=== PATIENT | male | born 1955 | race Caucasian/White ===

== ENCOUNTER 2018-02-13 23:13 | Inpatient (IN) | payer MEDICARE, OTHER ==
[~2018-02-13] VITALS: Ht 167.6 cm; Wt 69.1 kg
[2018-02-13 23:40] VITALS: BP 110/77
[2018-02-14] MEDS ORDERED: TOPIRAMATE100 MG ORAL (00:20)
[2018-02-14] MEDS ORDERED: TRILEPTAL600 MG PO (00:20)
[2018-02-14] MEDS ORDERED: FERROUS SULFAT325 MG ORAL (00:20)
[2018-02-14] MEDS ORDERED: GABAPENTIN300 MG ORAL (00:20)
[2018-02-14] MEDS ORDERED: ASCORBIC ACID500 M4 ORAL (00:20)
[2018-02-14] MEDS ORDERED: DEPAKOTE250 MG PO (00:20)
[2018-02-14] MEDS ORDERED: FAMOTIDINE20 MG ORAL (00:20)
[2018-02-14] MEDS ORDERED: MULTIVITAMINS1 EAC2 ORAL (00:20)
[2018-02-14 00:32] LABS: BASOPHILS % (AUTO) 0.9 % (0.0-2.0); EOSINOPHILS % (AUTO) 3.2 % (0.0-3.0); HEMATOCRIT 36.5 % (42.0-52.0); HEMOGLOBIN 12.3 G/DL (14.2-18.0); LYMPHOCYTES % (AUTO) 26.5 % (20.0-45.0); MEAN CORPUSCULAR VOLUME 90 FL (80-99); MONOCYTES % (AUTO) 7.9 % (1.0-10.0); NEUTROPHILS % (AUTO) 61.6 % (45.0-75.0); PLATELET COUNT 156 K/UL (150-450); RED BLOOD COUNT 4.04 M/UL (4.70-6.10); WHITE BLOOD COUNT 6.1 K/UL (4.8-10.8)
[2018-02-14 00:34] LABS: APPEARANCE,URINE CLEAR; BILIRUBIN, URINE NEGATIVE (NEGATIVE); COLOR,URINE PALE YELLOW; GLUCOSE, URINE (UA) NEGATIVE (NEGATIVE); KETONES,URINE NEGATIVE (NEGATIVE); LEUKOCYTE ESTERASE ,URINE NEGATIVE (NEGATIVE); NITRITE,URINE NEGATIVE (NEGATIVE); PH,URINE 8 (4.5-8.0); PROTEIN,URINE NEGATIVE (NEGATIVE); UROBILINOGEN,URINE NORMAL MG/DL (0.0-1.0)
[2018-02-14 00:38] LABS: ANION GAP 6 mmol/L (5-15); BLOOD UREA NITROGEN 18 mg/dL (7-18); CALCIUM 8.7 MG/DL (8.5-10.1); CARBON DIOXIDE 29 MMOL/L (21-32); CHLORIDE 106 MMOL/L (98-107); CREATININE 1.2 MG/DL (0.55-1.30); SODIUM 141 MMOL/L (136-145)
[2018-02-14 00:43] LABS: ALANINE AMINOTRANSFERASE 17 U/L (12-78); ALBUMIN 3.3 G/DL (3.4-5.0); ALBUMIN/GLOBULIN RATIO 0.9 (1.0-2.7); ALKALINE PHOSPHATASE 80 U/L (46-116); ASPARTATE AMINO TRANSFERASE 18 U/L (15-37); BILIRUBIN,TOTAL 0.2 MG/DL (0.2-1.0)
[2018-02-14 02:00] VITALS: BP 109/73
--- NOTE | 2018-02-14 02:16 | Emergency Room Report ---
History of Present Illness General Chief Complaint: General Complaint Source: Medical Record Present Illness HPI 62-year-old male presents ED for evaluation. Patient brought from shelter for agitated aggressive behavior today. History of schizophrenia, bipolar. Nursing staff states patient is behaving differently that his baseline. Upon arrival patient speaking nonsensically. Afebrile. No signs of distress. No chest pain or shortness of breath. No abdominal pain nausea or vomiting. Dr. Quintana contacted by facility, is aware that patient is being brought here for evaluation. No other aggravating relieving factors. Denies any other associated symptoms Allergies: Coded Allergies: No Known Allergies (Unverified , 02/13/18) Patient History Past Medical History: COPD, GERD, seizures, psych hx Past Surgical History: none Pertinent Family History: none Social History: Denies: smoking, alcohol use, drug use Immunizations: UTD Reviewed Nursing Documentation: PMH: Agreed; PSxH: Agreed Nursing Documentation-PMH Past Medical History: No History, Except For Hx COPD: Yes - acute respiratory distress syndrome, COPD Hx Gastrointestinal Problems: Yes - GERD Hx Seizures: Yes - epilepsy Review of Systems All Other Systems: negative except mentioned in HPI Physical Exam Vital Signs Date Time Temp Pulse Resp B/P (MAP) Pulse Ox O2 Delivery O2 Flow Rate FiO2 02/13/18 23:14 97.2 96 16 110/77 98 Room Air 97.2 Sp02 EP Interpretation: reviewed, normal General Appearance: no apparent distress, alert, GCS 15, non-toxic Head: normocephalic Eyes: bilateral eye normal inspection, bilateral eye PERRL ENT: normal ENT inspection Neck: normal inspection Respiratory: chest non-tender, lungs clear, normal breath sounds, speaking full sentences Cardiovascular #1: regular rate, rhythm, no edema Gastrointestinal: normal bowel sounds, non tender, soft, non-distended, no guarding, no rebound Rectal: deferred Genitourinary: no CVA tenderness Musculoskeletal: normal inspection Neurologic: alert, responsive, motor strength/tone normal, sensory intact, other - agitated Psychiatric: other - agitated Skin: normal inspection Lymphatic: normal inspection Medical Decision Making Diagnostic Impression: Primary Impression: Behavioral change Additional Impression: Altered mental status Qualified Codes: R41.0 - Disorientation, unspecified ER Course Hospital Course 62 yo M presents to ED with change in mentation/behavior from SNF Differential diagnoses include: dehydration, psychosis, delerium, sepsis Clinical course Patient placed on stretcher. on electronic publisher. After initial history and physical I ordered labs, chest x-ray, IVFs, CT Brain labs reviewed- no leukocytosis, hemoglobin/hematocrit ok, electrolytes okay, troponins negative, UA negative Chest x-ray- no acute process CT brain-unremarkable Dr Quintana aware of patient and will consult Case discussed with Dr. Treadwell and he agreed to accept the patient to his service for further care and support I. I feel this is a highly complex case requiring extensive working including EKG/Rhythm strip, Xray/CT/US, Blood/urine lab work, repeat exams while in ED, and administration of strong opiates/narcotics for pain control, admission to hospital or close patient follow up. Diagnosis - behavioral change, ams admitted to floor in serious condition Labs Test 02/13/18 23:59 02/14/18 00:20 White Blood Count 6.1 K/UL (4.8-10.8) Red Blood Count 4.04 M/UL (4.70-6.10) Hemoglobin 12.3 G/DL (14.2-18.0) Hematocrit 36.5 % (42.0-52.0) Mean Corpuscular Volume 90 FL (80-99) Mean Corpuscular Hemoglobin 30.4 PG (27.0-31.0) Mean Corpuscular Hemoglobin Concent 33.7 G/DL (32.0-36.0) Red Cell Distribution Width 13.0 % (11.6-14.8) Platelet Count 156 K/UL (150-450) Mean Platelet Volume 8.3 FL (6.5-10.1) Neutrophils (%) (Auto) 61.6 % (45.0-75.0) Lymphocytes (%) (Auto) 26.5 % (20.0-45.0) Monocytes (%) (Auto) 7.9 % (1.0-10.0) Eosinophils (%) (Auto) 3.2 % (0.0-3.0) Basophils (%) (Auto) 0.9 % (0.0-2.0) Sodium Level 141 MMOL/L (136-145) Potassium Level 4.0 MMOL/L (3.5-5.1) Chloride Level 106 MMOL/L (98-107) Carbon Dioxide Level 29 MMOL/L (21-32) Anion Gap 6 mmol/L (5-15) Blood Urea Nitrogen 18 mg/dL (7-18) Creatinine 1.2 MG/DL (0.55-1.30) Estimat Glomerular Filtration Rate > 60 mL/min (>60) Glucose Level 100 MG/DL (74-106) Lactic Acid Level 1.00 mmol/L (0.4-2.0) Calcium Level 8.7 MG/DL (8.5-10.1) Total Bilirubin 0.2 MG/DL (0.2-1.0) Aspartate Amino Transf (AST/SGOT) 18 U/L (15-37) Alanine Aminotransferase (ALT/SGPT) 17 U/L (12-78) Alkaline Phosphatase 80 U/L (46-116) Total Protein 7.1 G/DL (6.4-8.2) Albumin 3.3 G/DL (3.4-5.0) Globulin 3.8 g/dL Albumin/Globulin Ratio 0.9 (1.0-2.7) Urine Color Pale yellow Urine Appearance Clear Urine pH 8 (4.5-8.0) Urine Specific [place] 1.015 (1.005-1.035) Urine Protein Negative (NEGATIVE) Urine Glucose (UA) Negative (NEGATIVE) Urine Ketones Negative (NEGATIVE) Urine Occult Blood Negative (NEGATIVE) Urine Nitrite Negative (NEGATIVE) Urine Bilirubin Negative (NEGATIVE) Urine Urobilinogen Normal MG/DL (0.0-1.0) Urine Leukocyte Esterase Negative (NEGATIVE) Chest X-Ray Diagnostic Results Chest X-Ray Diagnostic Results : Chest X-Ray Ordered: Yes # of Views/Limited/Complete: 1 View Indication: Other - ams EP Interpretation: Yes Interpretation: no consolidation, no effusion, no pneumothorax, no acute cardiopulmonary disease, other - hyperinflated lungs Impression: No acute disease Electronically Signed by: Electronically signed by Noel Mojica MD CT/MRI/US Diagnostic Results CT/MRI/US Diagnostic Results : Imaging Test Ordered: CT Head Impression no acute process Last Vital Signs Date Time Temp Pulse Resp B/P (MAP) Pulse Ox O2 Delivery O2 Flow Rate FiO2 02/14/18 02:00 97.2 83 16 109/73 95 Room Air 97.2 Status: improved Disposition: ADMITTED INPATIENT Condition: Serious Referrals: Jose Treadwell DO (PCP) Noel Mojica MD Feb 14, 2018 02:16
[2018-02-14 04:00] VITALS: BP 146/79
[2018-02-14 08:00] VITALS: BP 155/80
[2018-02-14] MEDS: Ascorbic Acid 500mg tab ORAL SCH (08:12)
[2018-02-14] MEDS: OXcarbazepine 150mg tab ORAL SCH ×2 (08:12→21:17)
[2018-02-14] MEDS: Topiramate 100mg tab ORAL SCH ×2 (08:12→17:27)
[2018-02-14] MEDS ORDERED: Miralax 17gm pkt ORAL PRN (08:30)
[2018-02-14] MEDS ORDERED: Mylanta II UD 30ml ORAL PRN (08:30)
[2018-02-14] MEDS ORDERED: Zolpidem 5mg tab ORAL PRN (08:30)
[2018-02-14] MEDS ORDERED: LORazepam Inj 2mg/ml 1ml IV PRN (08:30)
--- NOTE | 2018-02-14 09:42 | Diagnostic Imaging Report ---
Indication: Altered mental status Technique: Contiguous 5 mm thick transaxial imaging of the head obtained in a Siemens Sensation [address] scanner. Soft tissue and bone windows generated. Automatic Exposure Control was utilized. Total Dose length Product (DLP): 1439.[address] Dose Index Volume (CTDIvol): 70.38 mGy Comparison: none Findings: There is moderate prominence of the ventricles, basal cisterns, and cerebral sulci consistent with atrophy. Moderate, nonspecific, white matter hypoattenuation is noted throughout the brain consistent with chronic small vessel disease. There is no midline shift, edema, acute hemorrhage, mass effect, or abnormal extra-axial fluid collections. Bones and extra osseous soft tissues are unremarkable. Impression: No acute intracranial bleed, mass effect or edema. Moderate atrophy of the brain. Evidence of chronic small vessel disease involving white matter tracts. [facility] has communicated the preliminary results to the Emergency Department. Their findings are largely concordant with this report. The CT scanner at [facility] is accredited by the [employer] and the scans are performed using dose optimization techniques as appropriate to a performed exam including Automatic Exposure control.
[2018-02-14] MEDS ORDERED: Haloperidol 5mg/ml Inj IM SCH (10:00)
[2018-02-14] MEDS ORDERED: DiphenhydrAMINE 50mg/ml Inj IM SCH (10:00)
[2018-02-14] MEDS ORDERED: LORazepam Inj 2mg/ml 1ml IV SCH (10:00)
--- NOTE | 2018-02-14 10:57 | Diagnostic Imaging Report ---
Indication: Dyspnea Comparison: None A single view chest radiograph was obtained. Findings: There is a fracture deformity of some of the ribs in the left which appear old. There is mild platelike atelectasis at the right lung base. Aorta is ectatic. The bones are osteopenic. Heart size is borderline enlarged. IMPRESSION: Mild right basal atelectasis. Other findings as above
[2018-02-14 12:00] VITALS: BP 99/67
--- NOTE | 2018-02-14 12:37 | Consultation ---
History of Present Illness General Date patient seen: Feb 14, 2018 Chief Complaint: General Complaint Present Illness HPI 62-year-old male with history of schizophrenia, bipolar, COPD, seizures presented to ED for evaluation of agitated aggressive behavior. Upon arrival to ER patient was speaking nonsensically. Afebrile. No signs of distress. No chest pain or shortness of breath. No abdominal pain nausea or vomiting. No other aggravating relieving factors. Denies any other associated symptoms Allergies: Coded Allergies: No Known Allergies (Unverified , 02/13/18) Medication History Scheduled Ascorbic Acid* (Ascorbic Acid*), 500 MG ORAL DAILY, (Reported) Divalproex Sodium* (Depakote*), 250 MG PO QID, (Reported) Famotidine (Famotidine), 20 MG ORAL DAILY, (Reported) Ferrous Sulfate* (Ferrous Sulfate*), 325 MG ORAL DAILY, (Reported) Gabapentin* (Gabapentin*), 300 MG ORAL BID, (Reported) Multivitamins* (Multivitamins*), 1 TAB ORAL DAILY, (Reported) Oxcarbazepine* (Trileptal*), 300 MG PO DAILY, (Reported) Topiramate* (Topamax*), 100 MG ORAL TWICE A DAY, (Reported) Patient History Healthcare decision maker Resuscitation status Advanced Directive on File Past Medical/Surgical History Past Medical/Surgical History: (1) Altered mental status (2) Psychosis (3) COPD (chronic obstructive pulmonary disease) Review of Systems All Other Systems: negative except mentioned in HPI Physical Exam General Appearance: WD/WN, no apparent distress Lines, tubes and drains: peripheral HEENT: normocephalic, atraumatic Neck: non-tender, normal alignment Respiratory/Chest: chest wall non-tender, lungs clear Breasts: no masses Cardiovascular/Chest: normal peripheral pulses Abdomen: normal bowel sounds, non tender Genitourinary/Rectal: normal genital exam Extremities: normal range of motion Last 24 Hour Vital Signs Date Time Temp Pulse Resp B/P (MAP) Pulse Ox O2 Delivery O2 Flow Rate FiO2 02/14/18 08:00 97.1 53 20 155/80 99 Room Air 97.1 02/14/18 04:00 97.3 85 20 146/79 98 Room Air 97.3 02/14/18 02:00 97.2 83 16 109/73 95 Room Air 207.0 02/14/18 02:00 97.2 83 16 109/73 95 Room Air 97.2 02/13/18 23:40 97.2 96 16 110/77 98 Room Air 97.2 02/13/18 23:14 97.2 96 16 110/77 98 Room Air 97.2 Intake and Output 02/13/18 02/14/18 19:00 07:00 Intake Total 0 ml Balance 0 ml Intake Oral 0 ml # Voids 2 Laboratory Tests Test 02/13/18 23:59 02/14/18 00:20 White Blood Count 6.1 K/UL (4.8-10.8) Red Blood Count 4.04 M/UL (4.70-6.10) L Hemoglobin 12.3 G/DL (14.2-18.0) L Hematocrit 36.5 % (42.0-52.0) L Mean Corpuscular Volume 90 FL (80-99) Mean Corpuscular Hemoglobin 30.4 PG (27.0-31.0) Mean Corpuscular Hemoglobin Concent 33.7 G/DL (32.0-36.0) Red Cell Distribution Width 13.0 % (11.6-14.8) Platelet Count 156 K/UL (150-450) Mean Platelet Volume 8.3 FL (6.5-10.1) Neutrophils (%) (Auto) 61.6 % (45.0-75.0) Lymphocytes (%) (Auto) 26.5 % (20.0-45.0) Monocytes (%) (Auto) 7.9 % (1.0-10.0) Eosinophils (%) (Auto) 3.2 % (0.0-3.0) H Basophils (%) (Auto) 0.9 % (0.0-2.0) Sodium Level 141 MMOL/L (136-145) Potassium Level 4.0 MMOL/L (3.5-5.1) Chloride Level 106 MMOL/L (98-107) Carbon Dioxide Level 29 MMOL/L (21-32) Anion Gap 6 mmol/L (5-15) Blood Urea Nitrogen 18 mg/dL (7-18) Creatinine 1.2 MG/DL (0.55-1.30) Estimat Glomerular Filtration Rate > 60 mL/min (>60) Glucose Level 100 MG/DL (74-106) Lactic Acid Level 1.00 mmol/L (0.4-2.0) Calcium Level 8.7 MG/DL (8.5-10.1) Total Bilirubin 0.2 MG/DL (0.2-1.0) Aspartate Amino Transf (AST/SGOT) 18 U/L (15-37) Alanine Aminotransferase (ALT/SGPT) 17 U/L (12-78) Alkaline Phosphatase 80 U/L (46-116) Total Protein 7.1 G/DL (6.4-8.2) Albumin 3.3 G/DL (3.4-5.0) L Globulin 3.8 g/dL Albumin/Globulin Ratio 0.9 (1.0-2.7) L Urine Color Pale yellow Urine Appearance Clear Urine pH 8 (4.5-8.0) Urine Specific [place] 1.015 (1.005-1.035) Urine Protein Negative (NEGATIVE) Urine Glucose (UA) Negative (NEGATIVE) Urine Ketones Negative (NEGATIVE) Urine Occult Blood Negative (NEGATIVE) Urine Nitrite Negative (NEGATIVE) Urine Bilirubin Negative (NEGATIVE) Urine Urobilinogen Normal MG/DL (0.0-1.0) Urine Leukocyte Esterase Negative (NEGATIVE) Height (Feet): 5 Height (Inches): 6.00 Weight (Pounds): 108 Medications Current Medications Medications (Trade) Dose Ordered Sig/Carmen Route PRN Reason Start Time Stop Time Status Last Admin Dose Admin Acetaminophen (Tylenol) 650 mg Q4H PRN ORAL fever 02/14/18 08:30 03/16/18 08:29 Al Hydroxide/Mg Hydroxide (Mylanta II) 30 ml Q6H PRN ORAL dyspepsia 02/14/18 08:30 03/16/18 08:29 Ascorbic Acid (Vitamin C) 500 mg DAILY ORAL 02/14/18 09:00 03/16/18 08:59 02/14/18 08:12 Dextrose (Dextrose 50%) 25 ml STAT PRN IV Hypoglycemia 02/14/18 08:30 03/16/18 08:29 Dextrose (Dextrose 50%) 50 ml STAT PRN IV Hypoglycemia 02/14/18 08:45 03/16/18 08:44 Divalproex Sodium (Depakote) 250 mg QID ORAL 02/14/18 09:00 03/16/18 08:59 02/14/18 08:12 Famotidine (Pepcid) 20 mg DAILY ORAL 02/14/18 09:00 03/16/18 08:59 02/14/18 08:12 Ferrous Sulfate (Feosol) 325 mg DAILY ORAL 02/14/18 09:00 03/16/18 08:59 Gabapentin (Neurontin) 300 mg BID ORAL 02/14/18 09:00 03/16/18 08:59 02/14/18 08:12 Lorazepam (Ativan 2mg/ml 1ml) 0.5 mg Q4H PRN IV For Anxiety 02/14/18 08:30 02/21/18 08:29 Morphine Sulfate (Morphine Sulfate) 1 mg Q4H PRN IVP For Pain 02/14/18 08:30 02/21/18 08:29 Multivitamins (Multivitamins) 1 tab DAILY ORAL 02/14/18 09:00 03/16/18 08:59 02/14/18 08:12 Ondansetron HCl (Zofran) 4 mg Q6H PRN IVP Nausea & Vomiting 02/14/18 08:30 03/16/18 08:29 Oxcarbazepine (Trileptal) 300 mg EVERY 12 HOURS ORAL 02/14/18 09:00 03/16/18 08:59 02/14/18 08:12 Polyethylene Glycol (Miralax) 17 gm HSPRN PRN ORAL Constipation 02/14/18 08:30 03/16/18 08:29 Topiramate (Topamax) 100 mg BID ORAL 02/14/18 09:00 03/16/18 08:59 02/14/18 08:12 Zolpidem Tartrate (Ambien) 5 mg HSPRN PRN ORAL Insomnia 02/14/18 08:30 02/21/18 08:29 Assessment/Plan Problem List: (1) Altered mental status ICD Codes: R41.82 - Altered mental status, unspecified SNOMED: 068096529 Qualifiers: Qualified Codes: R41.0 - Disorientation, unspecified (2) Psychosis ICD Codes: F29 - Unspecified psychosis not due to a substance or known physiological condition SNOMED: 53715160 (3) COPD (chronic obstructive pulmonary disease) ICD Codes: J44.9 - Chronic obstructive pulmonary disease, unspecified SNOMED: 74131719 (4) Seizure disorder ICD Codes: G40.909 - Epilepsy, unspecified, not intractable, without status epilepticus SNOMED: 874434177 Assessment/Plan respiratory treatment psychiatric management titrate fio2 to sat of 92% continue seizure meds dvt prophylaxis. Joana Morton MD Feb 14, 2018 12:37
--- NOTE | 2018-02-14 14:07 | Diagnostic Imaging Report ---
APPROVED REPORT CPT Code: 13988 Present Symptoms Comments: R/O DVT BILATERAL: Imaging reveals a patent deep venous system bilaterally. There is no evidence of thrombus within the femoral, popliteal or tibial segments. The greater saphenous veins are also within normal limits. Doppler indicates normal spontaneous flow within these segments.
[2018-02-14] MEDS ORDERED: Haloperidol Decanoate 50mg Inj IM ONE (15:00)
--- NOTE | 2018-02-14 15:00 | History and Physical Report ---
DATE OF ADMISSION: 02/13/2018 APPROXIMATE TIME: 9 a.m. CONSULTANTS: 1. Meeta Quintana M.D. 2. Joana Morton M.D. CHIEF COMPLAINT: Altered mental status and aggressive behavior. BRIEF HISTORY: This is a 62-year-old male from [facility] presented with above-mentioned diagnosis, admitted to medical floor for further treatment. Currently, confused, agitated in bed, refusing to answer questions. REVIEW OF SYSTEMS: Unavailable. PAST MEDICAL HISTORY: Include confusion and agitation. PAST SURGICAL HISTORY: Unknown. MEDICATIONS: Include Neurontin, , gabapentin, ferrous sulfa, famotidine, multivitamin, ascorbic acid, Tylenol, morphine, Zofran, and Lorazepam ALLERGIES: Denies. SOCIAL HISTORY: Unable to obtain secondary to the patient's condition and refusal. PHYSICAL EXAMINATION: GENERAL: Agitated in bed, oriented x3, no acute distress. VITAL SIGNS: Temperature is 97, pulse 85, respirations 20, and blood pressure 146/79. CARDIOVASCULAR: No murmur. LUNGS: Distant and clear. ABDOMEN: Bowel sounds positive. Nontender and nondistended. EXTREMITIES: No cyanosis, clubbing, or edema. NEUROLOGIC: The patient moves all extremities, does not want to follow commands. LABORATORY DATA: Labs at this time show hemoglobin 12.3, otherwise CBC is normal and BMP is normal. Albumin is 3.3, hypoalbumin. Urinalysis is negative. ASSESSMENT: 1. Aggressive behavior. 2. Altered mental status. 3. Anemia. 4. Hypoalbuminemia. PLAN: 1. Continue previous medications. 2. . 3. Dietary followup. 4. OT, PT, and dietary evaluation. 5. CBC and BMP in the morning. Jose Treadwell D.O. DR: STEPHAN JOB#: [id number] CC:
--- NOTE | 2018-02-14 15:22 | Consultation ---
History of Present Illness General Date patient seen: Feb 14, 2018 Chief Complaint: General Complaint Present Illness HPI 62-year-old male from [facility] the pt has hx of schizophrenia, admitted to medical floor for AMS. the pt is disorganized and agitated the pt was delusional and not able to communicate in a rational manner Allergies: Coded Allergies: No Known Allergies (Unverified , 02/13/18) Medication History Scheduled Ascorbic Acid* (Ascorbic Acid*), 500 MG ORAL DAILY, (Reported) Divalproex Sodium* (Depakote*), 250 MG PO QID, (Reported) Famotidine (Famotidine), 20 MG ORAL DAILY, (Reported) Ferrous Sulfate* (Ferrous Sulfate*), 325 MG ORAL DAILY, (Reported) Gabapentin* (Gabapentin*), 300 MG ORAL BID, (Reported) Multivitamins* (Multivitamins*), 1 TAB ORAL DAILY, (Reported) Oxcarbazepine* (Trileptal*), 300 MG PO DAILY, (Reported) Topiramate* (Topamax*), 100 MG ORAL TWICE A DAY, (Reported) Patient History Limited by: medical condition History Provided By: Patient, Medical Record, PMD Healthcare decision maker Resuscitation status Advanced Directive on File Past Medical/Surgical History Past Medical/Surgical History: (1) Behavioral change (2) Altered mental status (3) COPD (chronic obstructive pulmonary disease) (4) Psychosis (5) Seizure disorder Review of Systems Psychiatric: Reports: prior hx, anxiety, depressed feelings, emotional problems , hallucinations Physical Exam General Appearance: no apparent distress, alert, confused Neurologic: depressed affect Last 24 Hour Vital Signs Date Time Temp Pulse Resp B/P (MAP) Pulse Ox O2 Delivery O2 Flow Rate FiO2 02/14/18 12:00 97.9 94 20 99/67 97 Room Air 97.9 02/14/18 08:00 97.1 53 20 155/80 99 Room Air 97.1 02/14/18 04:00 97.3 85 20 146/79 98 Room Air 97.3 02/14/18 02:00 97.2 83 16 109/73 95 Room Air 207.0 02/14/18 02:00 97.2 83 16 109/73 95 Room Air 97.2 02/13/18 23:40 97.2 96 16 110/77 98 Room Air 97.2 02/13/18 23:14 97.2 96 16 110/77 98 Room Air 97.2 Intake and Output 02/13/18 02/14/18 19:00 07:00 Intake Total 0 ml Balance 0 ml Intake Oral 0 ml # Voids 2 Laboratory Tests Test 02/13/18 23:59 02/14/18 00:20 White Blood Count 6.1 K/UL (4.8-10.8) Red Blood Count 4.04 M/UL (4.70-6.10) L Hemoglobin 12.3 G/DL (14.2-18.0) L Hematocrit 36.5 % (42.0-52.0) L Mean Corpuscular Volume 90 FL (80-99) Mean Corpuscular Hemoglobin 30.4 PG (27.0-31.0) Mean Corpuscular Hemoglobin Concent 33.7 G/DL (32.0-36.0) Red Cell Distribution Width 13.0 % (11.6-14.8) Platelet Count 156 K/UL (150-450) Mean Platelet Volume 8.3 FL (6.5-10.1) Neutrophils (%) (Auto) 61.6 % (45.0-75.0) Lymphocytes (%) (Auto) 26.5 % (20.0-45.0) Monocytes (%) (Auto) 7.9 % (1.0-10.0) Eosinophils (%) (Auto) 3.2 % (0.0-3.0) H Basophils (%) (Auto) 0.9 % (0.0-2.0) Sodium Level 141 MMOL/L (136-145) Potassium Level 4.0 MMOL/L (3.5-5.1) Chloride Level 106 MMOL/L (98-107) Carbon Dioxide Level 29 MMOL/L (21-32) Anion Gap 6 mmol/L (5-15) Blood Urea Nitrogen 18 mg/dL (7-18) Creatinine 1.2 MG/DL (0.55-1.30) Estimat Glomerular Filtration Rate > 60 mL/min (>60) Glucose Level 100 MG/DL (74-106) Lactic Acid Level 1.00 mmol/L (0.4-2.0) Calcium Level 8.7 MG/DL (8.5-10.1) Total Bilirubin 0.2 MG/DL (0.2-1.0) Aspartate Amino Transf (AST/SGOT) 18 U/L (15-37) Alanine Aminotransferase (ALT/SGPT) 17 U/L (12-78) Alkaline Phosphatase 80 U/L (46-116) Total Protein 7.1 G/DL (6.4-8.2) Albumin 3.3 G/DL (3.4-5.0) L Globulin 3.8 g/dL Albumin/Globulin Ratio 0.9 (1.0-2.7) L Urine Color Pale yellow Urine Appearance Clear Urine pH 8 (4.5-8.0) Urine Specific [place] 1.015 (1.005-1.035) Urine Protein Negative (NEGATIVE) Urine Glucose (UA) Negative (NEGATIVE) Urine Ketones Negative (NEGATIVE) Urine Occult Blood Negative (NEGATIVE) Urine Nitrite Negative (NEGATIVE) Urine Bilirubin Negative (NEGATIVE) Urine Urobilinogen Normal MG/DL (0.0-1.0) Urine Leukocyte Esterase Negative (NEGATIVE) Height (Feet): 5 Height (Inches): 6.00 Weight (Pounds): 108 Medications Current Medications Medications (Trade) Dose Ordered Sig/Carmen Route PRN Reason Start Time Stop Time Status Last Admin Dose Admin Acetaminophen (Tylenol) 650 mg Q4H PRN ORAL fever 02/14/18 08:30 03/16/18 08:29 Al Hydroxide/Mg Hydroxide (Mylanta II) 30 ml Q6H PRN ORAL dyspepsia 02/14/18 08:30 03/16/18 08:29 Ascorbic Acid (Vitamin C) 500 mg DAILY ORAL 02/14/18 09:00 03/16/18 08:59 02/14/18 08:12 Dextrose (Dextrose 50%) 25 ml STAT PRN IV Hypoglycemia 02/14/18 08:30 03/16/18 08:29 Dextrose (Dextrose 50%) 50 ml STAT PRN IV Hypoglycemia 02/14/18 08:45 03/16/18 08:44 Divalproex Sodium (Depakote) 1,000 mg BID ORAL 02/14/18 18:00 03/16/18 17:59 Famotidine (Pepcid) 20 mg DAILY ORAL 02/14/18 09:00 03/16/18 08:59 02/14/18 08:12 Ferrous Sulfate (Feosol) 325 mg DAILY ORAL 02/14/18 09:00 03/16/18 08:59 Gabapentin (Neurontin) 300 mg BID ORAL 02/14/18 09:00 03/16/18 08:59 02/14/18 08:12 Lorazepam (Ativan 2mg/ml 1ml) 2 mg Q4H PRN IM For Anxiety 02/14/18 15:00 02/21/18 14:59 Morphine Sulfate (Morphine Sulfate) 1 mg Q4H PRN IVP For Pain 02/14/18 08:30 02/21/18 08:29 Multivitamins (Multivitamins) 1 tab DAILY ORAL 02/14/18 09:00 03/16/18 08:59 02/14/18 08:12 Ondansetron HCl (Zofran) 4 mg Q6H PRN IVP Nausea & Vomiting 02/14/18 08:30 03/16/18 08:29 Oxcarbazepine (Trileptal) 300 mg EVERY 12 HOURS ORAL 02/14/18 09:00 03/16/18 08:59 02/14/18 08:12 Polyethylene Glycol (Miralax) 17 gm HSPRN PRN ORAL Constipation 02/14/18 08:30 03/16/18 08:29 Risperidone (RisperDAL) 3 mg BEDTIME ORAL 02/14/18 21:00 03/16/18 20:59 Topiramate (Topamax) 100 mg BID ORAL 02/14/18 09:00 03/16/18 08:59 02/14/18 08:12 Assessment/Plan Status: stable Assessment/Plan Schizophrenia Encephalopathy -Haldol Dec 100 -Risperdal 3mg bid -Depakote 1000mg bid -not meeting criteria for hold -dc when medically cleared Meeta Quintana MD Feb 14, 2018 15:22
[2018-02-14 16:00] VITALS: BP 110/69
[2018-02-14] MEDS: Depakote 500mg tab ORAL SCH (17:28)
[2018-02-14 19:28] VITALS: BP 91/62
[2018-02-15 00:14] VITALS: BP 114/62
[2018-02-15 03:55] VITALS: BP 100/60
[2018-02-15 07:35] LABS: BASOPHILS % (AUTO) 0.9 % (0.0-2.0); EOSINOPHILS % (AUTO) 6.5 % (0.0-3.0); HEMATOCRIT 34.6 % (42.0-52.0); HEMOGLOBIN 11.2 G/DL (14.2-18.0); LYMPHOCYTES % (AUTO) 42.7 % (20.0-45.0); MEAN CORPUSCULAR VOLUME 90 FL (80-99); MONOCYTES % (AUTO) 7.7 % (1.0-10.0); NEUTROPHILS % (AUTO) 42.2 % (45.0-75.0); PLATELET COUNT 171 K/UL (150-450); RED BLOOD COUNT 3.86 M/UL (4.70-6.10); RED CELL DISTRIBUTION WIDTH 13.2 % (11.6-14.8); WHITE BLOOD COUNT 4.8 K/UL (4.8-10.8)
[2018-02-15 08:00] VITALS: BP 142/81
[2018-02-15 08:03] LABS: ALANINE AMINOTRANSFERASE 14 U/L (12-78); ALBUMIN 2.7 G/DL (3.4-5.0); ALBUMIN/GLOBULIN RATIO 0.8 (1.0-2.7); ALKALINE PHOSPHATASE 65 U/L (46-116); ANION GAP 7 mmol/L (5-15); ASPARTATE AMINO TRANSFERASE 20 U/L (15-37); BILIRUBIN,TOTAL 0.1 MG/DL (0.2-1.0); BLOOD UREA NITROGEN 20 mg/dL (7-18); CALCIUM 7.9 MG/DL (8.5-10.1); CARBON DIOXIDE 21 MMOL/L (21-32); CHLORIDE 110 MMOL/L (98-107); CHOLESTEROL 95 MG/DL (< 200); CREATININE 0.9 MG/DL (0.55-1.30); HDL CHOLESTEROL 58 MG/DL (40-60); POTASSIUM 4.2 MMOL/L (3.5-5.1); SODIUM 137 MMOL/L (136-145); TRIGLYCERIDES 33 MG/DL (30-150)
[2018-02-15] MEDS: Ascorbic Acid 500mg tab ORAL SCH (08:47)
[2018-02-15] MEDS: Depakote 500mg tab ORAL SCH ×2 (08:47→17:51)
[2018-02-15] MEDS: OXcarbazepine 150mg tab ORAL SCH ×2 (08:47→20:47)
[2018-02-15] MEDS: Topiramate 100mg tab ORAL SCH ×2 (08:47→17:51)
--- NOTE | 2018-02-15 09:05 | General Progress Note ---
Assessment/Plan Problem List: (1) Altered mental status ICD Codes: R41.82 - Altered mental status, unspecified SNOMED: 831372589 Qualifiers: Qualified Codes: R41.0 - Disorientation, unspecified (2) Psychosis ICD Codes: F29 - Unspecified psychosis not due to a substance or known physiological condition SNOMED: 53952540 (3) Seizure disorder ICD Codes: G40.909 - Epilepsy, unspecified, not intractable, without status epilepticus SNOMED: 025017347 Status: progressing Assessment/Plan ams confused afebrile agitated reviewed chart and labs Subjective ROS Limited/Unobtainable: Yes Allergies: Coded Allergies: No Known Allergies (Unverified , 02/13/18) Objective Last 24 Hour Vital Signs Date Time Temp Pulse Resp B/P (MAP) Pulse Ox O2 Delivery O2 Flow Rate FiO2 02/15/18 08:00 97.9 90 20 142/81 97 Room Air 97.9 02/15/18 03:55 97.5 81 20 100/60 97 Room Air 97.5 02/15/18 00:14 97.7 76 20 114/62 94 Room Air 97.7 02/14/18 19:28 97.7 92 20 91/62 96 Room Air 97.7 02/14/18 16:00 98.6 66 23 110/69 97 Room Air 98.6 02/14/18 12:00 97.9 94 20 99/67 97 Room Air 97.9 Intake and Output 02/14/18 02/15/18 19:00 07:00 Intake Total 720 ml Output Total 550 ml Balance 170 ml Intake Oral 720 ml Output Urine Total 550 ml # Voids 2 3 # Bowel Movements 1 1 Laboratory Tests 02/15/18 05:50: White Blood Count 4.8, Red Blood Count 3.86L, Hemoglobin 11.2L, Hematocrit 34.6L , Mean Corpuscular Volume 90, Mean Corpuscular Hemoglobin 29.0, Mean Corpuscular Hemoglobin Concent 32.3, Red Cell Distribution Width 13.2, Platelet Count 171, Mean Platelet Volume 7.9, Neutrophils (%) (Auto) 42.2L, Lymphocytes ( %) (Auto) 42.7, Monocytes (%) (Auto) 7.7, Eosinophils (%) (Auto) 6.5H, Basophils (%) (Auto) 0.9, Sodium Level 137, Potassium Level 4.2, Chloride Level 110H, Carbon Dioxide Level 21, Anion Gap 7, Blood Urea Nitrogen 20H, Creatinine 0.9, Estimat Glomerular Filtration Rate > 60, Glucose Level 76, Calcium Level 7.9L, Total Bilirubin 0.1L, Aspartate Amino Transf (AST/SGOT) 20, Alanine Aminotransferase (ALT/SGPT) 14, Alkaline Phosphatase 65, Total Protein 6.2L, Albumin 2.7L, Globulin 3.5, Albumin/Globulin Ratio 0.8L, Triglycerides Level 33 , Cholesterol Level 95, LDL Cholesterol 37, HDL Cholesterol 58, Cholesterol/HDL Ratio 1.6L, Thyroid Stimulating Hormone (TSH) 2.122 Height (Feet): 5 Height (Inches): 6.00 Weight (Pounds): 152 General Appearance: confused Neck: supple Cardiovascular: normal rate Respiratory/Chest: lungs clear Amirah Zimmerman MD Feb 15, 2018 09:05
[2018-02-15] MEDS: LORazepam Inj 2mg/ml 1ml IM PRN (10:51)
--- NOTE | 2018-02-15 11:52 | Pulmonology Progress Note ---
Assessment/Plan Problems: (1) Altered mental status (2) Psychosis (3) COPD (chronic obstructive pulmonary disease) (4) Seizure disorder Assessment/Plan slightly better still loud and talking without interruption respiratory treatment seizure precaution Subjective ROS Limited/Unobtainable: No Constitutional: Reports: no symptoms HEENT: Repors: no symptoms Allergies: Coded Allergies: No Known Allergies (Unverified , 02/13/18) Objective Last 24 Hour Vital Signs Date Time Temp Pulse Resp B/P (MAP) Pulse Ox O2 Delivery O2 Flow Rate FiO2 02/15/18 08:00 97.9 90 20 142/81 97 Room Air 97.9 02/15/18 03:55 97.5 81 20 100/60 97 Room Air 97.5 02/15/18 00:14 97.7 76 20 114/62 94 Room Air 97.7 02/14/18 19:28 97.7 92 20 91/62 96 Room Air 97.7 02/14/18 16:00 98.6 66 23 110/69 97 Room Air 98.6 02/14/18 12:00 97.9 94 20 99/67 97 Room Air 97.9 Intake and Output 02/14/18 02/15/18 19:00 07:00 Intake Total 720 ml Output Total 550 ml Balance 170 ml Intake Oral 720 ml Output Urine Total 550 ml # Voids 2 3 # Bowel Movements 1 1 General Appearance: WD/WN HEENT: normocephalic, anicteric Respiratory/Chest: chest wall non-tender, lungs clear Cardiovascular: normal peripheral pulses, normal rate Abdomen: normal bowel sounds, soft, non tender Genitourinary: normal external genitalia Skin: no rash Microbiology Date/Time Source Procedure Growth Status 02/13/18 23:45 Blood Blood Culture - Preliminary NO GROWTH AFTER 24 HOURS Resulted 02/13/18 00:00 Blood Blood Culture - Preliminary NO GROWTH AFTER 24 HOURS Resulted 02/14/18 00:20 Rectum VRE Culture Pending Resulted 02/14/18 00:20 Rectum - Preliminary Resulted Laboratory Tests 02/15/18 05:50: White Blood Count 4.8, Red Blood Count 3.86L, Hemoglobin 11.2L, Hematocrit 34.6L , Mean Corpuscular Volume 90, Mean Corpuscular Hemoglobin 29.0, Mean Corpuscular Hemoglobin Concent 32.3, Red Cell Distribution Width 13.2, Platelet Count 171, Mean Platelet Volume 7.9, Neutrophils (%) (Auto) 42.2L, Lymphocytes ( %) (Auto) 42.7, Monocytes (%) (Auto) 7.7, Eosinophils (%) (Auto) 6.5H, Basophils (%) (Auto) 0.9, Sodium Level 137, Potassium Level 4.2, Chloride Level 110H, Carbon Dioxide Level 21, Anion Gap 7, Blood Urea Nitrogen 20H, Creatinine 0.9, Estimat Glomerular Filtration Rate > 60, Glucose Level 76, Calcium Level 7.9L, Total Bilirubin 0.1L, Aspartate Amino Transf (AST/SGOT) 20, Alanine Aminotransferase (ALT/SGPT) 14, Alkaline Phosphatase 65, Total Protein 6.2L, Albumin 2.7L, Globulin 3.5, Albumin/Globulin Ratio 0.8L, Triglycerides Level 33 , Cholesterol Level 95, LDL Cholesterol 37, HDL Cholesterol 58, Cholesterol/HDL Ratio 1.6L, Thyroid Stimulating Hormone (TSH) 2.122 Current Medications Medications (Trade) Dose Ordered Sig/Carmen Route PRN Reason Start Time Stop Time Status Last Admin Dose Admin Acetaminophen (Tylenol) 650 mg Q4H PRN ORAL fever 02/14/18 08:30 03/16/18 08:29 Al Hydroxide/Mg Hydroxide (Mylanta II) 30 ml Q6H PRN ORAL dyspepsia 02/14/18 08:30 03/16/18 08:29 Ascorbic Acid (Vitamin C) 500 mg DAILY ORAL 02/14/18 09:00 03/16/18 08:59 02/15/18 08:47 Dextrose (Dextrose 50%) 25 ml STAT PRN IV Hypoglycemia 02/14/18 08:30 03/16/18 08:29 Dextrose (Dextrose 50%) 50 ml STAT PRN IV Hypoglycemia 02/14/18 08:45 03/16/18 08:44 Divalproex Sodium (Depakote) 1,000 mg BID ORAL 02/14/18 18:00 03/16/18 17:59 02/15/18 08:47 Famotidine (Pepcid) 20 mg DAILY ORAL 02/14/18 09:00 03/16/18 08:59 02/15/18 08:47 Ferrous Sulfate (Feosol) 325 mg DAILY ORAL 02/14/18 09:00 03/16/18 08:59 02/15/18 08:47 Gabapentin (Neurontin) 300 mg BID ORAL 02/14/18 09:00 03/16/18 08:59 02/15/18 08:47 Lorazepam (Ativan 2mg/ml 1ml) 2 mg Q4H PRN IM For Anxiety 02/14/18 15:00 02/21/18 14:59 02/15/18 10:51 Morphine Sulfate (Morphine Sulfate) 1 mg Q4H PRN IVP For Pain 02/14/18 08:30 02/21/18 08:29 Multivitamins (Multivitamins) 1 tab DAILY ORAL 02/14/18 09:00 03/16/18 08:59 02/15/18 08:47 Ondansetron HCl (Zofran) 4 mg Q6H PRN IVP Nausea & Vomiting 02/14/18 08:30 03/16/18 08:29 Oxcarbazepine (Trileptal) 300 mg EVERY 12 HOURS ORAL 02/14/18 09:00 03/16/18 08:59 02/15/18 08:47 Polyethylene Glycol (Miralax) 17 gm HSPRN PRN ORAL Constipation 02/14/18 08:30 03/16/18 08:29 Risperidone (RisperDAL) 3 mg BEDTIME ORAL 02/14/18 21:00 03/16/18 20:59 02/14/18 21:17 Topiramate (Topamax) 100 mg BID ORAL 02/14/18 09:00 03/16/18 08:59 02/15/18 08:47 Joana Morton MD Feb 15, 2018 11:52
[2018-02-15 12:00] VITALS: BP 112/69
[2018-02-15 16:00] VITALS: BP 118/69
[2018-02-15 20:00] VITALS: BP 105/54
[2018-02-15] MEDS: Morphine Sulfate 2mg/ml Inj IVP PRN (22:01)
--- NOTE | 2018-02-15 23:53 | General Progress Note ---
Assessment/Plan Assessment/Plan Schizophrenia Encephalopathy -Haldol Dec 100 -Risperdal 3mg bid -Depakote 1000mg bid -not meeting criteria for hold -dc when medically cleared dc the pt back to [place] tomorrow Subjective Date patient seen: Feb 15, 2018 Neurologic/Psychiatric: Reports: anxiety, depressed, emotional problems Allergies: Coded Allergies: No Known Allergies (Unverified , 02/13/18) Objective Last 24 Hour Vital Signs Date Time Temp Pulse Resp B/P (MAP) Pulse Ox O2 Delivery O2 Flow Rate FiO2 02/15/18 20:00 97.0 100 20 105/54 96 Room Air 97.0 02/15/18 16:00 98.0 78 20 118/69 97 Room Air 98.0 02/15/18 12:00 98.0 85 20 112/69 97 Room Air 98.0 02/15/18 08:00 97.9 90 20 142/81 97 Room Air 97.9 02/15/18 03:55 97.5 81 20 100/60 97 Room Air 97.5 02/15/18 00:14 97.7 76 20 114/62 94 Room Air 97.7 Intake and Output 02/14/18 02/15/18 19:00 07:00 Intake Total 720 ml Output Total 550 ml Balance 170 ml Intake Oral 720 ml Output Urine Total 550 ml # Voids 2 3 # Bowel Movements 1 1 Laboratory Tests 02/15/18 05:50: White Blood Count 4.8, Red Blood Count 3.86L, Hemoglobin 11.2L, Hematocrit 34.6L , Mean Corpuscular Volume 90, Mean Corpuscular Hemoglobin 29.0, Mean Corpuscular Hemoglobin Concent 32.3, Red Cell Distribution Width 13.2, Platelet Count 171, Mean Platelet Volume 7.9, Neutrophils (%) (Auto) 42.2L, Lymphocytes ( %) (Auto) 42.7, Monocytes (%) (Auto) 7.7, Eosinophils (%) (Auto) 6.5H, Basophils (%) (Auto) 0.9, Sodium Level 137, Potassium Level 4.2, Chloride Level 110H, Carbon Dioxide Level 21, Anion Gap 7, Blood Urea Nitrogen 20H, Creatinine 0.9, Estimat Glomerular Filtration Rate > 60, Glucose Level 76, Calcium Level 7.9L, Total Bilirubin 0.1L, Aspartate Amino Transf (AST/SGOT) 20, Alanine Aminotransferase (ALT/SGPT) 14, Alkaline Phosphatase 65, Total Protein 6.2L, Albumin 2.7L, Globulin 3.5, Albumin/Globulin Ratio 0.8L, Triglycerides Level 33 , Cholesterol Level 95, LDL Cholesterol 37, HDL Cholesterol 58, Cholesterol/HDL Ratio 1.6L, Thyroid Stimulating Hormone (TSH) 2.122 Height (Feet): 5 Height (Inches): 6.00 Weight (Pounds): 152 General Appearance: no apparent distress, alert, confused Neurologic: depressed affect Meeta Quintana MD Feb 15, 2018 23:53
[2018-02-16] VITALS (7 sets, daily range): BP systolic 110–140; BP diastolic 50–78
[2018-02-16 06:32] LABS: BASOPHILS % (AUTO) 0.9 % (0.0-2.0); EOSINOPHILS % (AUTO) 3.5 % (0.0-3.0); HEMATOCRIT 33.9 % (42.0-52.0); HEMOGLOBIN 11.2 G/DL (14.2-18.0); LYMPHOCYTES % (AUTO) 36.7 % (20.0-45.0); MEAN CORPUSCULAR VOLUME 89 FL (80-99); MONOCYTES % (AUTO) 10.8 % (1.0-10.0); NEUTROPHILS % (AUTO) 48.1 % (45.0-75.0); PLATELET COUNT 168 K/UL (150-450); RED BLOOD COUNT 3.79 M/UL (4.70-6.10); RED CELL DISTRIBUTION WIDTH 13.1 % (11.6-14.8); WHITE BLOOD COUNT 5.3 K/UL (4.8-10.8)
[2018-02-16 06:58] LABS: ALANINE AMINOTRANSFERASE 16 U/L (12-78); ALBUMIN/GLOBULIN RATIO 0.9 (1.0-2.7); ALKALINE PHOSPHATASE 71 U/L (46-116); ANION GAP 5 mmol/L (5-15); ASPARTATE AMINO TRANSFERASE 15 U/L (15-37); BILIRUBIN,TOTAL 0.1 MG/DL (0.2-1.0); BLOOD UREA NITROGEN 21 mg/dL (7-18); CALCIUM 8.3 MG/DL (8.5-10.1); CARBON DIOXIDE 25 MMOL/L (21-32); CHLORIDE 109 MMOL/L (98-107); CREATININE 0.9 MG/DL (0.55-1.30); POTASSIUM 4.1 MMOL/L (3.5-5.1); SODIUM 139 MMOL/L (136-145)
[2018-02-16] MEDS: Topiramate 100mg tab ORAL SCH ×2 (09:27→17:16)
[2018-02-16] MEDS: Depakote 500mg tab ORAL SCH ×2 (09:27→17:16)
[2018-02-16] MEDS: Ascorbic Acid 500mg tab ORAL SCH (09:27)
[2018-02-16] MEDS: OXcarbazepine 150mg tab ORAL SCH ×2 (09:27→21:26)
--- NOTE | 2018-02-16 16:08 | General Progress Note ---
Assessment/Plan Status: stable Assessment/Plan Schizophrenia Encephalopathy -Haldol Dec 100 -Risperdal 3mg bid -Depakote 1000mg bid -not meeting criteria for hold -dc when medically cleared Subjective Date patient seen: Feb 16, 2018 Neurologic/Psychiatric: Reports: anxiety, depressed, emotional problems Allergies: Coded Allergies: No Known Allergies (Unverified , 02/13/18) Subjective the pt is doing well stabilized on current meds Objective Last 24 Hour Vital Signs Date Time Temp Pulse Resp B/P (MAP) Pulse Ox O2 Delivery O2 Flow Rate FiO2 02/16/18 12:00 97.7 83 20 131/72 99 Room Air 97.7 02/16/18 08:00 98.6 98 20 140/78 99 Room Air 98.6 02/16/18 04:00 98.5 97 20 110/65 99 Room Air 98.5 02/16/18 00:00 98.9 102 20 112/70 96 Room Air 98.9 02/15/18 20:00 97.0 100 20 105/54 96 Room Air 97.0 Intake and Output 02/15/18 02/16/18 19:00 07:00 Intake Total 300 ml 450 ml Balance 300 ml 450 ml Intake Oral 300 ml 450 ml # Voids 2 3 Laboratory Tests 02/16/18 05:20: White Blood Count 5.3, Red Blood Count 3.79L, Hemoglobin 11.2L, Hematocrit 33.9L , Mean Corpuscular Volume 89, Mean Corpuscular Hemoglobin 29.7, Mean Corpuscular Hemoglobin Concent 33.2, Red Cell Distribution Width 13.1, Platelet Count 168, Mean Platelet Volume 7.5, Neutrophils (%) (Auto) 48.1, Lymphocytes (% ) (Auto) 36.7, Monocytes (%) (Auto) 10.8H, Eosinophils (%) (Auto) 3.5H, Basophils (%) (Auto) 0.9, Sodium Level 139, Potassium Level 4.1, Chloride Level 109H, Carbon Dioxide Level 25, Anion Gap 5, Blood Urea Nitrogen 21H, Creatinine 0.9, Estimat Glomerular Filtration Rate > 60, Glucose Level 80, Calcium Level 8.3L, Phosphorus Level 4.0, Magnesium Level 2.1, Total Bilirubin 0.1L, Aspartate Amino Transf (AST/SGOT) 15, Alanine Aminotransferase (ALT/SGPT) 16, Alkaline Phosphatase 71, Total Protein 6.4, Albumin 3.0L, Globulin 3.4, Albumin/ Globulin Ratio 0.9L Height (Feet): 5 Height (Inches): 6.00 Weight (Pounds): 152 General Appearance: no apparent distress, alert Neurologic: oriented x 3, responsive, depressed affect Meeta Quintana MD Feb 16, 2018 16:08
--- NOTE | 2018-02-16 21:35 | General Progress Note ---
Assessment/Plan Problem List: (1) Altered mental status ICD Codes: R41.82 - Altered mental status, unspecified SNOMED: 537250112 Qualifiers: Qualified Codes: R41.0 - Disorientation, unspecified (2) Psychosis ICD Codes: F29 - Unspecified psychosis not due to a substance or known physiological condition SNOMED: 04458053 (3) Seizure disorder ICD Codes: G40.909 - Epilepsy, unspecified, not intractable, without status epilepticus SNOMED: 703638003 Status: progressing Assessment/Plan afebrile no acute events reviewed meds ams reviewed chart and labs Subjective ROS Limited/Unobtainable: Yes Allergies: Coded Allergies: No Known Allergies (Unverified , 02/13/18) Objective Last 24 Hour Vital Signs Date Time Temp Pulse Resp B/P (MAP) Pulse Ox O2 Delivery O2 Flow Rate FiO2 02/16/18 16:00 98.2 85 20 128/68 99 Room Air 98.2 02/16/18 14:00 98.2 85 20 128/68 99 Room Air 98.2 02/16/18 12:00 97.7 83 20 131/72 99 Room Air 97.7 02/16/18 08:00 98.6 98 20 140/78 99 Room Air 98.6 02/16/18 04:00 98.5 97 20 110/65 99 Room Air 98.5 02/16/18 00:00 98.9 102 20 112/70 96 Room Air 98.9 Intake and Output 02/15/18 02/16/18 19:00 07:00 Intake Total 300 ml 450 ml Balance 300 ml 450 ml Intake Oral 300 ml 450 ml # Voids 2 3 Laboratory Tests 02/16/18 05:20: White Blood Count 5.3, Red Blood Count 3.79L, Hemoglobin 11.2L, Hematocrit 33.9L , Mean Corpuscular Volume 89, Mean Corpuscular Hemoglobin 29.7, Mean Corpuscular Hemoglobin Concent 33.2, Red Cell Distribution Width 13.1, Platelet Count 168, Mean Platelet Volume 7.5, Neutrophils (%) (Auto) 48.1, Lymphocytes (% ) (Auto) 36.7, Monocytes (%) (Auto) 10.8H, Eosinophils (%) (Auto) 3.5H, Basophils (%) (Auto) 0.9, Sodium Level 139, Potassium Level 4.1, Chloride Level 109H, Carbon Dioxide Level 25, Anion Gap 5, Blood Urea Nitrogen 21H, Creatinine 0.9, Estimat Glomerular Filtration Rate > 60, Glucose Level 80, Calcium Level 8.3L, Phosphorus Level 4.0, Magnesium Level 2.1, Total Bilirubin 0.1L, Aspartate Amino Transf (AST/SGOT) 15, Alanine Aminotransferase (ALT/SGPT) 16, Alkaline Phosphatase 71, Total Protein 6.4, Albumin 3.0L, Globulin 3.4, Albumin/ Globulin Ratio 0.9L Height (Feet): 5 Height (Inches): 6.00 Weight (Pounds): 152 Neck: supple Cardiovascular: normal rate Respiratory/Chest: lungs clear Amirah Zimmerman MD Feb 16, 2018 21:35
[2018-02-16] MEDS: Morphine Sulfate 2mg/ml Inj IVP PRN (23:11)
[2018-02-17] VITALS: BP 134/74
[2018-02-17 04:00] VITALS: BP 130/80
[2018-02-17 08:00] VITALS: BP 139/89
[2018-02-17] MEDS: OXcarbazepine 150mg tab ORAL SCH ×2 (08:30→20:54)
[2018-02-17] MEDS: Ascorbic Acid 500mg tab ORAL SCH (08:31)
[2018-02-17] MEDS: Topiramate 100mg tab ORAL SCH ×2 (08:31→17:44)
[2018-02-17] MEDS: Depakote 500mg tab ORAL SCH ×2 (08:31→17:45)
[2018-02-17 12:00] VITALS: BP 117/79
[2018-02-17] MEDS: LORazepam Inj 2mg/ml 1ml IM PRN ×2 (13:07→18:03)
--- NOTE | 2018-02-17 13:29 | General Progress Note ---
Assessment/Plan Problem List: (1) Altered mental status ICD Codes: R41.82 - Altered mental status, unspecified SNOMED: 194091558 Qualifiers: Qualified Codes: R41.0 - Disorientation, unspecified (2) Psychosis ICD Codes: F29 - Unspecified psychosis not due to a substance or known physiological condition SNOMED: 44656879 (3) Seizure disorder ICD Codes: G40.909 - Epilepsy, unspecified, not intractable, without status epilepticus SNOMED: 115313787 Status: progressing Assessment/Plan afebrile agitated not ready for dc since has aggressive behaviour and not safe for dc spoke w dr juarez re his behaviour and she is in agreement Subjective Allergies: Coded Allergies: No Known Allergies (Unverified , 02/13/18) Subjective confused Objective Last 24 Hour Vital Signs Date Time Temp Pulse Resp B/P (MAP) Pulse Ox O2 Delivery O2 Flow Rate FiO2 02/17/18 12:00 98.0 90 20 117/79 (92) 97 98.0 02/17/18 08:00 97.5 93 20 139/89 (106) 98 97.5 02/17/18 04:00 97.6 85 20 130/80 100 Room Air 97.6 02/17/18 00:00 97.1 87 20 134/74 98 Room Air 97.1 02/16/18 20:00 98.4 89 20 140/50 92 Room Air 98.4 02/16/18 16:00 98.2 85 20 128/68 99 Room Air 98.2 02/16/18 14:00 98.2 85 20 128/68 99 Room Air 98.2 Intake and Output 02/16/18 02/17/18 19:00 07:00 Intake Total 720 ml Balance 720 ml Intake Oral 720 ml # Voids 3 3 Height (Feet): 5 Height (Inches): 6.00 Weight (Pounds): 152 General Appearance: confused Neck: supple Cardiovascular: normal rate Respiratory/Chest: lungs clear Amirah Zimmerman MD Feb 17, 2018 13:29
--- NOTE | 2018-02-17 13:41 | General Progress Note ---
Assessment/Plan Status: stable Assessment/Plan Schizophrenia Encephalopathy -Haldol Dec 100 -Risperdal 6MG qhs -Depakote 1000mg bid -not meeting criteria for hold -dc when medically cleared dc the pt back to [place] tomorrow Subjective Date patient seen: Feb 17, 2018 Neurologic/Psychiatric: Reports: anxiety, depressed, emotional problems Allergies: Coded Allergies: No Known Allergies (Unverified , 02/13/18) Subjective the pt is doing well stabilized on current meds Objective Last 24 Hour Vital Signs Date Time Temp Pulse Resp B/P (MAP) Pulse Ox O2 Delivery O2 Flow Rate FiO2 02/17/18 12:00 98.0 90 20 117/79 (92) 97 98.0 02/17/18 08:00 97.5 93 20 139/89 (106) 98 97.5 02/17/18 04:00 97.6 85 20 130/80 100 Room Air 97.6 02/17/18 00:00 97.1 87 20 134/74 98 Room Air 97.1 02/16/18 20:00 98.4 89 20 140/50 92 Room Air 98.4 02/16/18 16:00 98.2 85 20 128/68 99 Room Air 98.2 02/16/18 14:00 98.2 85 20 128/68 99 Room Air 98.2 Intake and Output 02/16/18 02/17/18 19:00 07:00 Intake Total 720 ml Balance 720 ml Intake Oral 720 ml # Voids 3 3 Height (Feet): 5 Height (Inches): 6.00 Weight (Pounds): 152 General Appearance: no apparent distress, alert, confused, agitated Meeta Quintana MD Feb 17, 2018 13:41
--- NOTE | 2018-02-17 15:46 | Pulmonology Progress Note ---
Assessment/Plan Problems: (1) Altered mental status (2) Psychosis (3) COPD (chronic obstructive pulmonary disease) (4) Seizure disorder Assessment/Plan no new complains all reviewed slightly better still loud and talking without interruption respiratory treatment seizure precaution Subjective ROS Limited/Unobtainable: No Constitutional: Reports: no symptoms HEENT: Repors: no symptoms Respiratory: Reports: no symptoms Cardiovascular: Reports: no symptoms Allergies: Coded Allergies: No Known Allergies (Unverified , 02/13/18) Objective Last 24 Hour Vital Signs Date Time Temp Pulse Resp B/P (MAP) Pulse Ox O2 Delivery O2 Flow Rate FiO2 02/17/18 12:00 98.0 90 20 117/79 (92) 97 98.0 02/17/18 09:00 Room Air 02/17/18 08:00 97.5 93 20 139/89 (106) 98 97.5 02/17/18 04:00 97.6 85 20 130/80 100 Room Air 97.6 02/17/18 00:00 97.1 87 20 134/74 98 Room Air 97.1 02/16/18 20:00 98.4 89 20 140/50 92 Room Air 98.4 02/16/18 16:00 98.2 85 20 128/68 99 Room Air 98.2 Intake and Output 02/16/18 02/17/18 19:00 07:00 Intake Total 720 ml Balance 720 ml Intake Oral 720 ml # Voids 3 3 General Appearance: WD/WN HEENT: normocephalic, atraumatic Respiratory/Chest: chest wall non-tender, lungs clear Cardiovascular: normal peripheral pulses, normal rate Abdomen: normal bowel sounds, soft, non tender Genitourinary: normal external genitalia Current Medications Medications (Trade) Dose Ordered Sig/Carmen Route PRN Reason Start Time Stop Time Status Last Admin Dose Admin Acetaminophen (Tylenol) 650 mg Q4H PRN ORAL fever 02/14/18 08:30 03/16/18 08:29 Al Hydroxide/Mg Hydroxide (Mylanta II) 30 ml Q6H PRN ORAL dyspepsia 02/14/18 08:30 03/16/18 08:29 Ascorbic Acid (Vitamin C) 500 mg DAILY ORAL 02/14/18 09:00 03/16/18 08:59 02/17/18 08:31 Dextrose (Dextrose 50%) 25 ml STAT PRN IV Hypoglycemia 02/14/18 08:30 03/16/18 08:29 Dextrose (Dextrose 50%) 50 ml STAT PRN IV Hypoglycemia 02/14/18 08:45 03/16/18 08:44 Divalproex Sodium (Depakote) 1,000 mg BID ORAL 02/14/18 18:00 03/16/18 17:59 02/17/18 08:31 Famotidine (Pepcid) 20 mg DAILY ORAL 02/14/18 09:00 03/16/18 08:59 02/17/18 08:31 Ferrous Sulfate (Feosol) 325 mg DAILY ORAL 02/14/18 09:00 03/16/18 08:59 02/17/18 08:31 Gabapentin (Neurontin) 300 mg BID ORAL 02/14/18 09:00 03/16/18 08:59 02/17/18 08:31 Lorazepam (Ativan 2mg/ml 1ml) 2 mg Q4H PRN IM For Anxiety 02/14/18 15:00 02/21/18 14:59 02/17/18 13:07 Morphine Sulfate (Morphine Sulfate) 1 mg Q4H PRN IVP For Pain 02/14/18 08:30 02/21/18 08:29 02/16/18 23:11 Multivitamins (Multivitamins) 1 tab DAILY ORAL 02/14/18 09:00 03/16/18 08:59 02/17/18 08:30 Ondansetron HCl (Zofran) 4 mg Q6H PRN IVP Nausea & Vomiting 02/14/18 08:30 03/16/18 08:29 Oxcarbazepine (Trileptal) 300 mg EVERY 12 HOURS ORAL 02/14/18 09:00 03/16/18 08:59 02/17/18 08:30 Polyethylene Glycol (Miralax) 17 gm HSPRN PRN ORAL Constipation 02/14/18 08:30 03/16/18 08:29 Risperidone (RisperDAL) 6 mg BEDTIME ORAL 02/17/18 21:00 03/19/18 20:59 Topiramate (Topamax) 100 mg BID ORAL 02/14/18 09:00 03/16/18 08:59 02/17/18 08:31 Joana Morton MD Feb 17, 2018 15:46
--- NOTE | 2018-02-17 15:47 | Pulmonology Progress Note ---
Assessment/Plan Problems: (1) Altered mental status (2) Psychosis (3) COPD (chronic obstructive pulmonary disease) (4) Seizure disorder Assessment/Plan d/w dr juarez no new complains all reviewed slightly better still loud and talking without interruption respiratory treatment seizure precaution Subjective ROS Limited/Unobtainable: No Interval Events: late note for 02/16 Allergies: Coded Allergies: No Known Allergies (Unverified , 02/13/18) Objective Last 24 Hour Vital Signs Date Time Temp Pulse Resp B/P (MAP) Pulse Ox O2 Delivery O2 Flow Rate FiO2 02/17/18 12:00 98.0 90 20 117/79 (92) 97 98.0 02/17/18 09:00 Room Air 02/17/18 08:00 97.5 93 20 139/89 (106) 98 97.5 02/17/18 04:00 97.6 85 20 130/80 100 Room Air 97.6 02/17/18 00:00 97.1 87 20 134/74 98 Room Air 97.1 02/16/18 20:00 98.4 89 20 140/50 92 Room Air 98.4 02/16/18 16:00 98.2 85 20 128/68 99 Room Air 98.2 Intake and Output 02/16/18 02/17/18 19:00 07:00 Intake Total 720 ml Balance 720 ml Intake Oral 720 ml # Voids 3 3 General Appearance: WD/WN HEENT: normocephalic, atraumatic Respiratory/Chest: chest wall non-tender, lungs clear Cardiovascular: normal peripheral pulses, normal rate Abdomen: normal bowel sounds, soft, non tender Genitourinary: normal external genitalia Extremities: no cyanosis 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 Current Medications Medications (Trade) Dose Ordered Sig/Carmen Route PRN Reason Start Time Stop Time Status Last Admin Dose Admin Acetaminophen (Tylenol) 650 mg Q4H PRN ORAL fever 02/14/18 08:30 03/16/18 08:29 Al Hydroxide/Mg Hydroxide (Mylanta II) 30 ml Q6H PRN ORAL dyspepsia 02/14/18 08:30 03/16/18 08:29 Ascorbic Acid (Vitamin C) 500 mg DAILY ORAL 02/14/18 09:00 03/16/18 08:59 02/17/18 08:31 Dextrose (Dextrose 50%) 25 ml STAT PRN IV Hypoglycemia 02/14/18 08:30 03/16/18 08:29 Dextrose (Dextrose 50%) 50 ml STAT PRN IV Hypoglycemia 02/14/18 08:45 03/16/18 08:44 Divalproex Sodium (Depakote) 1,000 mg BID ORAL 02/14/18 18:00 03/16/18 17:59 02/17/18 08:31 Famotidine (Pepcid) 20 mg DAILY ORAL 02/14/18 09:00 03/16/18 08:59 02/17/18 08:31 Ferrous Sulfate (Feosol) 325 mg DAILY ORAL 02/14/18 09:00 03/16/18 08:59 02/17/18 08:31 Gabapentin (Neurontin) 300 mg BID ORAL 02/14/18 09:00 03/16/18 08:59 02/17/18 08:31 Lorazepam (Ativan 2mg/ml 1ml) 2 mg Q4H PRN IM For Anxiety 02/14/18 15:00 02/21/18 14:59 02/17/18 13:07 Morphine Sulfate (Morphine Sulfate) 1 mg Q4H PRN IVP For Pain 02/14/18 08:30 02/21/18 08:29 02/16/18 23:11 Multivitamins (Multivitamins) 1 tab DAILY ORAL 02/14/18 09:00 03/16/18 08:59 02/17/18 08:30 Ondansetron HCl (Zofran) 4 mg Q6H PRN IVP Nausea & Vomiting 02/14/18 08:30 03/16/18 08:29 Oxcarbazepine (Trileptal) 300 mg EVERY 12 HOURS ORAL 02/14/18 09:00 03/16/18 08:59 02/17/18 08:30 Polyethylene Glycol (Miralax) 17 gm HSPRN PRN ORAL Constipation 02/14/18 08:30 03/16/18 08:29 Risperidone (RisperDAL) 6 mg BEDTIME ORAL 02/17/18 21:00 03/19/18 20:59 Topiramate (Topamax) 100 mg BID ORAL 02/14/18 09:00 03/16/18 08:59 02/17/18 08:31 Joana Morton MD Feb 17, 2018 15:47
[2018-02-17 16:00] VITALS: BP 131/80
[2018-02-17 20:00] VITALS: BP 114/76
[2018-02-18] VITALS (7 sets, daily range): BP systolic 91–123; BP diastolic 62–82
[2018-02-18] MEDS: Depakote 500mg tab ORAL SCH ×2 (09:15→18:07)
[2018-02-18] MEDS: Ascorbic Acid 500mg tab ORAL SCH (09:15)
[2018-02-18] MEDS: OXcarbazepine 150mg tab ORAL SCH ×2 (09:15→20:37)
[2018-02-18] MEDS: Topiramate 100mg tab ORAL SCH ×2 (09:15→18:07)
--- NOTE | 2018-02-18 16:00 | General Progress Note ---
Assessment/Plan Problem List: (1) Altered mental status ICD Codes: R41.82 - Altered mental status, unspecified SNOMED: 657749967 Qualifiers: Qualified Codes: R41.0 - Disorientation, unspecified (2) Psychosis ICD Codes: F29 - Unspecified psychosis not due to a substance or known physiological condition SNOMED: 42923389 (3) Seizure disorder ICD Codes: G40.909 - Epilepsy, unspecified, not intractable, without status epilepticus SNOMED: 177445841 Status: progressing Assessment/Plan still agitated reviewed chart and labs and meds since has aggressive behaviour and not safe for dc spoke w dr juarez Subjective ROS Limited/Unobtainable: Yes Constitutional: Reports: no symptoms Allergies: Coded Allergies: No Known Allergies (Unverified , 02/13/18) Subjective confused Objective Last 24 Hour Vital Signs Date Time Temp Pulse Resp B/P (MAP) Pulse Ox O2 Delivery O2 Flow Rate FiO2 02/18/18 12:00 97.6 80 19 110/82 (91) 95 97.6 02/18/18 09:00 Room Air 02/18/18 08:00 97.9 83 18 108/74 (85) 94 97.9 02/18/18 04:00 98.3 100 20 102/69 (80) 94 98.3 02/18/18 00:00 98.2 104 20 91/62 (72) 93 98.2 02/17/18 21:00 Room Air 02/17/18 20:00 98.2 91 22 114/76 (89) 93 98.2 02/17/18 16:00 98.0 97 18 131/80 (97) 98 98.0 Intake and Output 02/17/18 02/18/18 19:00 07:00 Intake Total 600 ml Balance 600 ml Intake Oral 600 ml # Voids 3 2 Height (Feet): 5 Height (Inches): 6.00 Weight (Pounds): 152 General Appearance: confused Cardiovascular: regular rhythm Respiratory/Chest: lungs clear Abdomen: soft Amirah Zimmerman MD Feb 18, 2018 16:00
--- NOTE | 2018-02-18 19:22 | Pulmonology Progress Note ---
Assessment/Plan Problems: (1) Altered mental status (2) Psychosis (3) COPD (chronic obstructive pulmonary disease) (4) Seizure disorder Assessment/Plan feeling better d/w dr juarez no new complains all reviewed slightly better still loud and talking without interruption respiratory treatment seizure precaution Subjective ROS Limited/Unobtainable: No Interval Events: much better, speach controlled Allergies: Coded Allergies: No Known Allergies (Unverified , 02/13/18) Objective Last 24 Hour Vital Signs Date Time Temp Pulse Resp B/P (MAP) Pulse Ox O2 Delivery O2 Flow Rate FiO2 02/18/18 16:00 98.1 79 19 118/80 (93) 96 98.1 02/18/18 12:00 97.6 80 19 110/82 (91) 95 97.6 02/18/18 09:00 Room Air 02/18/18 08:00 97.9 83 18 108/74 (85) 94 97.9 02/18/18 04:00 98.3 100 20 102/69 (80) 94 98.3 02/18/18 00:00 98.2 104 20 91/62 (72) 93 98.2 02/17/18 21:00 Room Air 02/17/18 20:00 98.2 91 22 114/76 (89) 93 98.2 Intake and Output 02/17/18 02/18/18 19:00 07:00 Intake Total 600 ml Balance 600 ml Intake Oral 600 ml # Voids 3 2 Objective General Appearance: WD/WN HEENT: normocephalic, atraumatic Respiratory/Chest: chest wall non-tender, lungs clear Breasts: no masses Cardiovascular: normal peripheral pulses, normal rate Abdomen: normal bowel sounds, no organomegaly 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 Lymphatic: no neck adenopathy Current Medications Medications (Trade) Dose Ordered Sig/Carmen Route PRN Reason Start Time Stop Time Status Last Admin Dose Admin Acetaminophen (Tylenol) 650 mg Q4H PRN ORAL fever 02/14/18 08:30 03/16/18 08:29 Al Hydroxide/Mg Hydroxide (Mylanta II) 30 ml Q6H PRN ORAL dyspepsia 02/14/18 08:30 03/16/18 08:29 Ascorbic Acid (Vitamin C) 500 mg DAILY ORAL 02/14/18 09:00 03/16/18 08:59 02/18/18 09:15 Dextrose (Dextrose 50%) 25 ml STAT PRN IV Hypoglycemia 02/14/18 08:30 03/16/18 08:29 Dextrose (Dextrose 50%) 50 ml STAT PRN IV Hypoglycemia 02/14/18 08:45 03/16/18 08:44 Divalproex Sodium (Depakote) 1,000 mg BID ORAL 02/14/18 18:00 03/16/18 17:59 02/18/18 18:07 Famotidine (Pepcid) 20 mg DAILY ORAL 02/14/18 09:00 03/16/18 08:59 02/18/18 09:15 Ferrous Sulfate (Feosol) 325 mg DAILY ORAL 02/14/18 09:00 03/16/18 08:59 02/18/18 09:16 Gabapentin (Neurontin) 300 mg BID ORAL 02/14/18 09:00 03/16/18 08:59 02/18/18 18:07 Lorazepam (Ativan 2mg/ml 1ml) 2 mg Q4H PRN IM For Anxiety 02/14/18 15:00 02/21/18 14:59 02/17/18 18:03 Morphine Sulfate (Morphine Sulfate) 1 mg Q4H PRN IVP For Pain 02/14/18 08:30 02/21/18 08:29 02/16/18 23:11 Multivitamins (Multivitamins) 1 tab DAILY ORAL 02/14/18 09:00 03/16/18 08:59 02/18/18 09:16 Ondansetron HCl (Zofran) 4 mg Q6H PRN IVP Nausea & Vomiting 02/14/18 08:30 03/16/18 08:29 Oxcarbazepine (Trileptal) 300 mg EVERY 12 HOURS ORAL 02/14/18 09:00 03/16/18 08:59 02/18/18 09:15 Polyethylene Glycol (Miralax) 17 gm HSPRN PRN ORAL Constipation 02/14/18 08:30 03/16/18 08:29 Risperidone (RisperDAL) 6 mg BEDTIME ORAL 02/17/18 21:00 03/19/18 20:59 02/17/18 20:54 Topiramate (Topamax) 100 mg BID ORAL 02/14/18 09:00 03/16/18 08:59 02/18/18 18:07 Joana Morton MD Feb 18, 2018 19:22
--- NOTE | 2018-02-18 23:18 | General Progress Note ---
Assessment/Plan Assessment/Plan Schizophrenia Encephalopathy -Haldol Dec 100 -Risperdal 6MG qhs -Depakote 1000mg bid -not meeting criteria for hold -dc when medically cleared dc the pt back to [place] tomorrow Subjective Allergies: Coded Allergies: No Known Allergies (Unverified , 02/13/18) Subjective the pt is doing well stabilized on current meds Objective Last 24 Hour Vital Signs Date Time Temp Pulse Resp B/P (MAP) Pulse Ox O2 Delivery O2 Flow Rate FiO2 02/18/18 21:00 Room Air 02/18/18 20:00 98.6 84 20 115/82 (93) 96 98.6 02/18/18 16:00 98.1 79 19 118/80 (93) 96 98.1 02/18/18 12:00 97.6 80 19 110/82 (91) 95 97.6 02/18/18 09:00 Room Air 02/18/18 08:00 97.9 83 18 108/74 (85) 94 97.9 02/18/18 04:00 98.3 100 20 102/69 (80) 94 98.3 02/18/18 00:00 98.2 104 20 91/62 (72) 93 98.2 Intake and Output 02/17/18 02/18/18 19:00 07:00 Intake Total 600 ml Balance 600 ml Intake Oral 600 ml # Voids 3 2 Height (Feet): 5 Height (Inches): 6.00 Weight (Pounds): 152 Meeta Quintana MD Feb 18, 2018 23:18
[2018-02-19 04:00] VITALS: BP 116/64
[2018-02-19 08:00] VITALS: BP 105/58
[2018-02-19] MEDS: Ascorbic Acid 500mg tab ORAL SCH (08:46)
[2018-02-19] MEDS: OXcarbazepine 150mg tab ORAL SCH ×2 (08:46→20:56)
[2018-02-19] MEDS: Topiramate 100mg tab ORAL SCH ×2 (08:46→17:17)
[2018-02-19] MEDS: Depakote 500mg tab ORAL SCH ×2 (08:46→17:17)
[2018-02-19 09:01] VITALS: BP 128/67
[2018-02-19 11:55] VITALS: BP 104/61
--- NOTE | 2018-02-19 12:44 | General Progress Note ---
Assessment/Plan Problem List: (1) Altered mental status ICD Codes: R41.82 - Altered mental status, unspecified SNOMED: 963626434 Qualifiers: Qualified Codes: R41.0 - Disorientation, unspecified (2) Psychosis ICD Codes: F29 - Unspecified psychosis not due to a substance or known physiological condition SNOMED: 34008802 (3) Seizure disorder ICD Codes: G40.909 - Epilepsy, unspecified, not intractable, without status epilepticus SNOMED: 493873873 Status: progressing Assessment/Plan possible dc in am since has aggressive behaviour and not safe for dc management of behaviour per dr juarez Subjective ROS Limited/Unobtainable: Yes Constitutional: Reports: no symptoms Allergies: Coded Allergies: No Known Allergies (Unverified , 02/13/18) Subjective confused Objective Last 24 Hour Vital Signs Date Time Temp Pulse Resp B/P (MAP) Pulse Ox O2 Delivery O2 Flow Rate FiO2 02/19/18 11:55 97.7 90 22 104/61 (75) 99 97.7 02/19/18 09:01 128/67 (87) 02/19/18 09:00 Room Air 02/19/18 08:00 97.3 76 21 105/58 (74) 99 97.3 02/19/18 04:00 98.1 87 20 116/64 (81) 96 98.1 02/18/18 23:59 98.5 95 20 123/77 (92) 95 98.5 02/18/18 21:00 Room Air 02/18/18 20:00 98.6 84 20 115/82 (93) 96 98.6 02/18/18 16:00 98.1 79 19 118/80 (93) 96 98.1 Intake and Output 02/18/18 02/19/18 19:00 07:00 Intake Total 1200 ml Balance 1200 ml Other 1200 ml # Voids 4 4 Height (Feet): 5 Height (Inches): 6.00 Weight (Pounds): 152 Neck: supple Cardiovascular: normal rate Respiratory/Chest: lungs clear Amirah Zimmerman MD Feb 19, 2018 12:44
[2018-02-19 16:00] VITALS: BP 129/80
--- NOTE | 2018-02-19 18:10 | Pulmonology Progress Note ---
Assessment/Plan Problems: (1) Altered mental status (2) Psychosis (3) COPD (chronic obstructive pulmonary disease) (4) Seizure disorder Assessment/Plan feeling better d/w dr juarez no new complains all reviewed slightly better still loud and talking without interruption respiratory treatment seizure precaution Subjective ROS Limited/Unobtainable: No Allergies: Coded Allergies: No Known Allergies (Unverified , 02/13/18) Objective Last 24 Hour Vital Signs Date Time Temp Pulse Resp B/P (MAP) Pulse Ox O2 Delivery O2 Flow Rate FiO2 02/19/18 16:00 97.7 87 21 129/80 (96) 95 97.7 02/19/18 15:16 97.7 02/19/18 14:17 97.7 02/19/18 11:55 97.7 90 22 104/61 (75) 99 97.7 02/19/18 09:01 128/67 (87) 02/19/18 09:00 Room Air 02/19/18 08:00 97.3 76 21 105/58 (74) 99 97.3 02/19/18 04:00 98.1 87 20 116/64 (81) 96 98.1 02/18/18 23:59 98.5 95 20 123/77 (92) 95 98.5 02/18/18 21:00 Room Air 02/18/18 20:00 98.6 84 20 115/82 (93) 96 98.6 Intake and Output 02/18/18 02/19/18 19:00 07:00 Intake Total 1200 ml Balance 1200 ml Other 1200 ml # Voids 4 4 Objective General Appearance: WD/WN HEENT: normocephalic, atraumatic Respiratory/Chest: chest wall non-tender, lungs clear Breasts: no masses Cardiovascular: normal peripheral pulses, normal rate Abdomen: normal bowel sounds, no organomegaly 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 Lymphatic: no neck adenopathy Current Medications Medications (Trade) Dose Ordered Sig/Carmen Route PRN Reason Start Time Stop Time Status Last Admin Dose Admin Acetaminophen (Tylenol) 650 mg Q4H PRN ORAL fever 02/14/18 08:30 03/16/18 08:29 02/19/18 14:17 Al Hydroxide/Mg Hydroxide (Mylanta II) 30 ml Q6H PRN ORAL dyspepsia 02/14/18 08:30 03/16/18 08:29 Ascorbic Acid (Vitamin C) 500 mg DAILY ORAL 02/14/18 09:00 03/16/18 08:59 02/19/18 08:46 Dextrose (Dextrose 50%) 25 ml STAT PRN IV Hypoglycemia 02/14/18 08:30 03/16/18 08:29 Dextrose (Dextrose 50%) 50 ml STAT PRN IV Hypoglycemia 02/14/18 08:45 03/16/18 08:44 Divalproex Sodium (Depakote) 1,000 mg BID ORAL 02/14/18 18:00 03/16/18 17:59 02/19/18 17:17 Famotidine (Pepcid) 20 mg DAILY ORAL 02/14/18 09:00 03/16/18 08:59 02/19/18 08:46 Ferrous Sulfate (Feosol) 325 mg DAILY ORAL 02/14/18 09:00 03/16/18 08:59 02/19/18 08:46 Gabapentin (Neurontin) 300 mg BID ORAL 02/14/18 09:00 03/16/18 08:59 02/19/18 17:17 Lorazepam (Ativan 2mg/ml 1ml) 2 mg Q4H PRN IM For Anxiety 02/14/18 15:00 02/21/18 14:59 02/17/18 18:03 Morphine Sulfate (Morphine Sulfate) 1 mg Q4H PRN IVP For Pain 02/14/18 08:30 02/21/18 08:29 02/16/18 23:11 Multivitamins (Multivitamins) 1 tab DAILY ORAL 02/14/18 09:00 03/16/18 08:59 02/19/18 08:45 Ondansetron HCl (Zofran) 4 mg Q6H PRN IVP Nausea & Vomiting 02/14/18 08:30 03/16/18 08:29 Oxcarbazepine (Trileptal) 300 mg EVERY 12 HOURS ORAL 02/14/18 09:00 03/16/18 08:59 02/19/18 08:46 Polyethylene Glycol (Miralax) 17 gm HSPRN PRN ORAL Constipation 02/14/18 08:30 03/16/18 08:29 Risperidone (RisperDAL) 6 mg BEDTIME ORAL 7/6/18 21:00 03/19/18 20:59 02/18/18 20:37 Topiramate (Topamax) 100 mg BID ORAL 02/14/18 09:00 03/16/18 08:59 02/19/18 17:17 Joana Morton MD Feb 19, 2018 18:10
[2018-02-19 20:00] VITALS: BP 130/82
[2018-02-20] VITALS: BP 118/69
[2018-02-20 04:00] VITALS: BP 104/70
[2018-02-20 08:00] VITALS: BP 110/78
[2018-02-20] MEDS: Topiramate 100mg tab ORAL SCH ×2 (08:47→17:44)
[2018-02-20] MEDS: Depakote 500mg tab ORAL SCH ×2 (08:47→17:44)
[2018-02-20] MEDS: OXcarbazepine 150mg tab ORAL SCH ×2 (08:48→19:58)
[2018-02-20] MEDS: Ascorbic Acid 500mg tab ORAL SCH (08:48)
--- NOTE | 2018-02-20 11:34 | General Progress Note ---
Assessment/Plan Assessment/Plan Schizophrenia Encephalopathy -Haldol Dec 100 -Risperdal 6MG qhs -Depakote 1000mg bid -not meeting criteria for hold -dc when medically cleared dc the pt back to [place] tomorrow Subjective Date patient seen: Feb 20, 2018 Allergies: Coded Allergies: No Known Allergies (Unverified , 02/13/18) Subjective the pt is doing well stabilized on current meds Objective Last 24 Hour Vital Signs Date Time Temp Pulse Resp B/P (MAP) Pulse Ox O2 Delivery O2 Flow Rate FiO2 02/20/18 09:00 Room Air 02/20/18 08:00 97.7 87 18 110/78 (89) 96 97.7 02/20/18 04:00 97.1 78 20 104/70 (81) 97 97.1 02/20/18 00:00 97.8 84 20 118/69 (85) 97 97.8 02/19/18 21:00 Room Air 02/19/18 20:00 98.6 88 20 130/82 (98) 95 98.6 02/19/18 16:00 97.7 87 21 129/80 (96) 95 97.7 02/19/18 15:16 97.7 02/19/18 14:17 97.7 02/19/18 11:55 97.7 90 22 104/61 (75) 99 97.7 Intake and Output 02/19/18 02/20/18 19:00 07:00 Intake Total 720 ml Balance 720 ml Intake Oral 720 ml # Voids 1 3 Height (Feet): 5 Height (Inches): 6.00 Weight (Pounds): 152 Meeta Quintana MD Feb 20, 2018 11:34
[2018-02-20 12:00] VITALS: BP 114/77
--- NOTE | 2018-02-20 14:06 | Pulmonology Progress Note ---
Assessment/Plan Problems: (1) Altered mental status (2) Psychosis (3) COPD (chronic obstructive pulmonary disease) (4) Seizure disorder Assessment/Plan feeling better d/w dr juarez no new complains all reviewed slightly better still loud and talking without interruption respiratory treatment seizure precaution dc planning Subjective ROS Limited/Unobtainable: No Constitutional: Reports: no symptoms HEENT: Repors: no symptoms Allergies: Coded Allergies: No Known Allergies (Unverified , 02/13/18) Objective Last 24 Hour Vital Signs Date Time Temp Pulse Resp B/P (MAP) Pulse Ox O2 Delivery O2 Flow Rate FiO2 02/20/18 09:00 Room Air 02/20/18 08:00 97.7 87 18 110/78 (89) 96 97.7 02/20/18 04:00 97.1 78 20 104/70 (81) 97 97.1 02/20/18 00:00 97.8 84 20 118/69 (85) 97 97.8 02/19/18 21:00 Room Air 02/19/18 20:00 98.6 88 20 130/82 (98) 95 98.6 02/19/18 16:00 97.7 87 21 129/80 (96) 95 97.7 02/19/18 15:16 97.7 02/19/18 14:17 97.7 Intake and Output 02/19/18 02/20/18 19:00 07:00 Intake Total 720 ml Balance 720 ml Intake Oral 720 ml # Voids 1 3 Objective General Appearance: WD/WN HEENT: normocephalic, atraumatic Respiratory/Chest: chest wall non-tender, lungs clear Breasts: no masses Cardiovascular: normal peripheral pulses, normal rate Abdomen: normal bowel sounds, no organomegaly 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 Lymphatic: no neck adenopathy Current Medications Medications (Trade) Dose Ordered Sig/Carmen Route PRN Reason Start Time Stop Time Status Last Admin Dose Admin Acetaminophen (Tylenol) 650 mg Q4H PRN ORAL fever 02/14/18 08:30 03/16/18 08:29 02/19/18 14:17 Al Hydroxide/Mg Hydroxide (Mylanta II) 30 ml Q6H PRN ORAL dyspepsia 02/14/18 08:30 03/16/18 08:29 Ascorbic Acid (Vitamin C) 500 mg DAILY ORAL 02/14/18 09:00 03/16/18 08:59 02/20/18 08:48 Dextrose (Dextrose 50%) 25 ml STAT PRN IV Hypoglycemia 02/14/18 08:30 03/16/18 08:29 Dextrose (Dextrose 50%) 50 ml STAT PRN IV Hypoglycemia 02/14/18 08:45 03/16/18 08:44 Divalproex Sodium (Depakote) 1,000 mg BID ORAL 02/14/18 18:00 03/16/18 17:59 02/20/18 08:47 Famotidine (Pepcid) 20 mg DAILY ORAL 02/14/18 09:00 03/16/18 08:59 02/20/18 08:47 Ferrous Sulfate (Feosol) 325 mg DAILY ORAL 02/14/18 09:00 03/16/18 08:59 02/20/18 08:47 Gabapentin (Neurontin) 300 mg BID ORAL 02/14/18 09:00 03/16/18 08:59 02/20/18 08:47 Lorazepam (Ativan 2mg/ml 1ml) 2 mg Q4H PRN IM For Anxiety 02/14/18 15:00 02/21/18 14:59 02/17/18 18:03 Morphine Sulfate (Morphine Sulfate) 1 mg Q4H PRN IVP For Pain 02/14/18 08:30 02/21/18 08:29 02/16/18 23:11 Multivitamins (Multivitamins) 1 tab DAILY ORAL 02/14/18 09:00 03/16/18 08:59 02/20/18 08:47 Ondansetron HCl (Zofran) 4 mg Q6H PRN IVP Nausea & Vomiting 02/14/18 08:30 03/16/18 08:29 Oxcarbazepine (Trileptal) 300 mg EVERY 12 HOURS ORAL 02/14/18 09:00 03/16/18 08:59 02/20/18 08:48 Polyethylene Glycol (Miralax) 17 gm HSPRN PRN ORAL Constipation 02/14/18 08:30 03/16/18 08:29 Risperidone (RisperDAL) 6 mg BEDTIME ORAL 02/17/18 21:00 03/19/18 20:59 02/19/18 20:56 Topiramate (Topamax) 100 mg BID ORAL 02/14/18 09:00 03/16/18 08:59 02/20/18 08:47 Joana Morton MD Feb 20, 2018 14:06
--- NOTE | 2018-02-20 14:33 | General Progress Note ---
Assessment/Plan Problem List: (1) Altered mental status ICD Codes: R41.82 - Altered mental status, unspecified SNOMED: 535728879 Qualifiers: Qualified Codes: R41.0 - Disorientation, unspecified (2) Psychosis ICD Codes: F29 - Unspecified psychosis not due to a substance or known physiological condition SNOMED: 90587652 (3) Seizure disorder ICD Codes: G40.909 - Epilepsy, unspecified, not intractable, without status epilepticus SNOMED: 863561807 Status: progressing Status Narrative still confused ams psychosis agitated behavior not managed yet Assessment/Plan possible dc in am since has aggressive behaviour and not safe for dc management of behaviour per dr juarez Subjective ROS Limited/Unobtainable: Yes Allergies: Coded Allergies: No Known Allergies (Unverified , 02/13/18) Subjective confused Objective Last 24 Hour Vital Signs Date Time Temp Pulse Resp B/P (MAP) Pulse Ox O2 Delivery O2 Flow Rate FiO2 02/20/18 09:00 Room Air 02/20/18 08:00 97.7 87 18 110/78 (89) 96 97.7 02/20/18 04:00 97.1 78 20 104/70 (81) 97 97.1 02/20/18 00:00 97.8 84 20 118/69 (85) 97 97.8 02/19/18 21:00 Room Air 02/19/18 20:00 98.6 88 20 130/82 (98) 95 98.6 02/19/18 16:00 97.7 87 21 129/80 (96) 95 97.7 02/19/18 15:16 97.7 Intake and Output 02/19/18 02/20/18 19:00 07:00 Intake Total 720 ml Balance 720 ml Intake Oral 720 ml # Voids 1 3 Height (Feet): 5 Height (Inches): 6.00 Weight (Pounds): 152 General Appearance: confused Cardiovascular: normal rate Respiratory/Chest: lungs clear Abdomen: soft Amirah Zimmerman MD Feb 20, 2018 14:33
[2018-02-20] MEDS: LORazepam Inj 2mg/ml 1ml IM PRN (15:18)
[2018-02-20 16:00] VITALS: BP 121/78
[2018-02-20 20:00] VITALS: BP 118/80
[2018-02-21 04:00] VITALS: BP 128/78
[2018-02-21 08:00] VITALS: BP 132/82
[2018-02-21] MEDS: Depakote 500mg tab ORAL SCH (08:42)
[2018-02-21] MEDS: Topiramate 100mg tab ORAL SCH (08:42)
[2018-02-21] MEDS: OXcarbazepine 150mg tab ORAL SCH (08:42)
[2018-02-21] MEDS: Ascorbic Acid 500mg tab ORAL SCH (08:42)
[2018-02-21] MEDS ORDERED: DEPAKOTE ER500 MG ORAL ×3 (11:09→11:15)
[2018-02-21] MEDS ORDERED: ATIVAN1 MG ORAL (11:10)
[2018-02-21] MEDS ORDERED: RISPERDAL2 MG ORAL (11:11)
[2018-02-21] MEDS ORDERED: TOPIRAMATE100 MG ORAL (11:12)
--- NOTE | 2018-02-21 11:25 | General Progress Note ---
Assessment/Plan Problem List: (1) Altered mental status ICD Codes: R41.82 - Altered mental status, unspecified SNOMED: 872751716 Qualifiers: Qualified Codes: R41.0 - Disorientation, unspecified (2) Psychosis ICD Codes: F29 - Unspecified psychosis not due to a substance or known physiological condition SNOMED: 41221227 (3) Seizure disorder ICD Codes: G40.909 - Epilepsy, unspecified, not intractable, without status epilepticus SNOMED: 330009592 Status: progressing Assessment/Plan behaviour is stable not agitated vitals stable dc back to [facility] today Subjective ROS Limited/Unobtainable: Yes Allergies: Coded Allergies: No Known Allergies (Unverified , 02/13/18) Subjective confused Objective Last 24 Hour Vital Signs Date Time Temp Pulse Resp B/P (MAP) Pulse Ox O2 Delivery O2 Flow Rate FiO2 02/21/18 09:00 Room Air 02/21/18 08:00 97.7 77 20 132/82 (99) 97 97.7 02/21/18 04:00 98.2 73 19 128/78 (95) 97 98.2 02/20/18 21:00 Room Air 02/20/18 20:00 98.3 80 19 118/80 (93) 95 98.3 02/20/18 16:00 97.9 80 18 121/78 (92) 99 97.9 02/20/18 12:00 98.0 84 18 114/77 (89) 97 98.0 Intake and Output 02/20/18 02/21/18 19:00 07:00 Intake Total 1600 ml Balance 1600 ml Intake Oral 1600 ml # Voids 5 4 Height (Feet): 5 Height (Inches): 6.00 Weight (Pounds): 152 General Appearance: confused Cardiovascular: regular rhythm Respiratory/Chest: lungs clear Amirah Zimmerman MD Feb 21, 2018 11:25
[2018-02-21 12:00] VITALS: BP 100/60
--- NOTE | 2018-02-21 12:07 | General Progress Note ---
Assessment/Plan Status: stable, progressing Assessment/Plan Schizophrenia Encephalopathy -Haldol Dec 100 -Risperdal 6MG qhs -Depakote 1000mg bid -not meeting criteria for hold -dc when medically cleared dc the pt back to [place] tomorrow Subjective Date patient seen: Feb 20, 2018 Neurologic/Psychiatric: Reports: anxiety, depressed, emotional problems Allergies: Coded Allergies: No Known Allergies (Unverified , 02/13/18) Subjective the pt is still agitated and delusional Objective Last 24 Hour Vital Signs Date Time Temp Pulse Resp B/P (MAP) Pulse Ox O2 Delivery O2 Flow Rate FiO2 02/21/18 09:00 Room Air 02/21/18 08:00 97.7 77 20 132/82 (99) 97 97.7 02/21/18 04:00 98.2 73 19 128/78 (95) 97 98.2 02/20/18 21:00 Room Air 02/20/18 20:00 98.3 80 19 118/80 (93) 95 98.3 02/20/18 16:00 97.9 80 18 121/78 (92) 99 97.9 Intake and Output 02/20/18 02/21/18 19:00 07:00 Intake Total 1600 ml Balance 1600 ml Intake Oral 1600 ml # Voids 5 4 Height (Feet): 5 Height (Inches): 6.00 Weight (Pounds): 152 General Appearance: no apparent distress, alert, confused Meeta Quintana MD Feb 21, 2018 12:07
--- NOTE | 2018-02-21 12:08 | General Progress Note ---
Assessment/Plan Assessment/Plan Schizophrenia Encephalopathy -Haldol Dec 100 -Risperdal 6MG qhs -Depakote 1000mg bid -not meeting criteria for hold -dc when medically cleared dc the pt back to [place] tomorrow Subjective Date patient seen: Feb 21, 2018 Neurologic/Psychiatric: Reports: anxiety, depressed Allergies: Coded Allergies: No Known Allergies (Unverified , 02/13/18) Subjective the pt is calm Objective Last 24 Hour Vital Signs Date Time Temp Pulse Resp B/P (MAP) Pulse Ox O2 Delivery O2 Flow Rate FiO2 02/21/18 09:00 Room Air 02/21/18 08:00 97.7 77 20 132/82 (99) 97 97.7 02/21/18 04:00 98.2 73 19 128/78 (95) 97 98.2 02/20/18 21:00 Room Air 02/20/18 20:00 98.3 80 19 118/80 (93) 95 98.3 02/20/18 16:00 97.9 80 18 121/78 (92) 99 97.9 Intake and Output 02/20/18 02/21/18 19:00 07:00 Intake Total 1600 ml Balance 1600 ml Intake Oral 1600 ml # Voids 5 4 Height (Feet): 5 Height (Inches): 6.00 Weight (Pounds): 152 General Appearance: no apparent distress, alert, confused Meeta Quintana MD Feb 21, 2018 12:08
[2018-02-21] MEDS ORDERED: LORazepam 1mg tab ORAL SCH (12:15)
--- NOTE | 2018-02-21 12:50 | Pulmonology Progress Note ---
Assessment/Plan Problems: (1) Altered mental status (2) Psychosis (3) COPD (chronic obstructive pulmonary disease) (4) Seizure disorder Assessment/Plan feeling better d/w dr juarez no new complains all reviewed slightly better respiratory treatment seizure precaution dc planning Subjective ROS Limited/Unobtainable: No Constitutional: Reports: no symptoms HEENT: Repors: no symptoms Respiratory: Reports: no symptoms Allergies: Coded Allergies: No Known Allergies (Unverified , 02/13/18) Objective Last 24 Hour Vital Signs Date Time Temp Pulse Resp B/P (MAP) Pulse Ox O2 Delivery O2 Flow Rate FiO2 02/21/18 12:00 97.7 84 20 100/60 (73) 97 97.7 02/21/18 09:00 Room Air 02/21/18 08:00 97.7 77 20 132/82 (99) 97 97.7 02/21/18 04:00 98.2 73 19 128/78 (95) 97 98.2 02/20/18 21:00 Room Air 02/20/18 20:00 98.3 80 19 118/80 (93) 95 98.3 02/20/18 16:00 97.9 80 18 121/78 (92) 99 97.9 Intake and Output 02/20/18 02/21/18 19:00 07:00 Intake Total 1600 ml Balance 1600 ml Intake Oral 1600 ml # Voids 5 4 Objective General Appearance: WD/WN HEENT: normocephalic, atraumatic Respiratory/Chest: chest wall non-tender, lungs clear Breasts: no masses Cardiovascular: normal peripheral pulses, normal rate Abdomen: normal bowel sounds, no organomegaly 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 Lymphatic: no neck adenopathy Current Medications Medications (Trade) Dose Ordered Sig/Carmen Route PRN Reason Start Time Stop Time Status Last Admin Dose Admin Acetaminophen (Tylenol) 650 mg Q4H PRN ORAL fever 02/14/18 08:30 03/16/18 08:29 02/19/18 14:17 Al Hydroxide/Mg Hydroxide (Mylanta II) 30 ml Q6H PRN ORAL dyspepsia 02/14/18 08:30 03/16/18 08:29 Ascorbic Acid (Vitamin C) 500 mg DAILY ORAL 02/14/18 09:00 03/16/18 08:59 02/21/18 08:42 Dextrose (Dextrose 50%) 25 ml STAT PRN IV Hypoglycemia 02/14/18 08:30 03/16/18 08:29 Dextrose (Dextrose 50%) 50 ml STAT PRN IV Hypoglycemia 02/14/18 08:45 03/16/18 08:44 Divalproex Sodium (Depakote) 1,000 mg BID ORAL 02/14/18 18:00 03/16/18 17:59 02/21/18 08:42 Famotidine (Pepcid) 20 mg DAILY ORAL 02/14/18 09:00 03/16/18 08:59 02/21/18 08:42 Ferrous Sulfate (Feosol) 325 mg DAILY ORAL 02/14/18 09:00 03/16/18 08:59 02/21/18 08:42 Gabapentin (Neurontin) 300 mg BID ORAL 02/14/18 09:00 03/16/18 08:59 02/21/18 08:42 Lorazepam (Ativan 2mg/ml 1ml) 2 mg Q4H PRN IM For Anxiety 02/14/18 15:00 02/21/18 14:59 02/20/18 15:18 Lorazepam (Ativan) 2 mg ONCE ORAL 02/21/18 12:15 02/21/18 13:15 02/21/18 12:40 Multivitamins (Multivitamins) 1 tab DAILY ORAL 02/14/18 09:00 03/16/18 08:59 02/21/18 08:42 Ondansetron HCl (Zofran) 4 mg Q6H PRN IVP Nausea & Vomiting 02/14/18 08:30 03/16/18 08:29 Oxcarbazepine (Trileptal) 300 mg EVERY 12 HOURS ORAL 02/14/18 09:00 03/16/18 08:59 02/21/18 08:42 Polyethylene Glycol (Miralax) 17 gm HSPRN PRN ORAL Constipation 02/14/18 08:30 03/16/18 08:29 Risperidone (RisperDAL) 6 mg BEDTIME ORAL 02/17/18 21:00 03/19/18 20:59 02/20/18 19:58 Topiramate (Topamax) 100 mg BID ORAL 02/14/18 09:00 03/16/18 08:59 02/21/18 08:42 Joana Morton MD Feb 21, 2018 12:50
--- NOTE | 2018-02-24 09:12 | Discharge Summary ---
Discharge Summary Discharge Summary _ DATE OF ADMISSION: 02/13/2018 DATE OF DISCHARGE: 02/22/2000 REASON FOR ADMISSION: 62 years old male with history of COPD, seizure disorder, bipolar disorder, schizophrenia, was brought into emergency room from the alf facility for evaluation due to altered mental status. Patient was behaving in unusual manner and was agitated at the facility. Psychiatrist was contacted who recommended to bring patient to emergency department for evaluation. Vital signs were stable. CT of the head revealed no acute intracranial pathology. Chest x-ray revealed no acute cardiopulmonary pathology. Mild anemia with hemoglobin 12.3, hematocrit 36.5 BUN 18, creatinine 1.2. Electrolytes stable. No leukocytosis. Lactic acid 1.0 Urinalysis without evidence of UTI. Patient admitted with diagnosis of altered mental status , aggressive behavior , anemia ,schizophrenia, COPD, seizure disorder. CONSULTANTS: pulmonary Dr. Morton psychiatrist [facility] COURSE: Patient admitted. Psychiatrist seen and evaluated patient. Psychiatrist optimized psychiatric medication regimen and started patient on Haldol, Risperdal and Depakote. Psychiatrist concluded that the patient did not meet criteria for hold. She recommended to discharge patient when medically stable. Supplemental oxygen provided as needed to keep pulse oximetry above 92%. Pulmonary toilet was on board as needed. Chest x-ray clear. No evidence of COPD exacerbation. Pulse oximetry was stable on room air. Seizure precautions maintained. Patient continued on Trileptal and Topamax. No seizure activity while in the hospital. Hemoglobin and hematocrit were closely monitored, remained at the baseline Patient was continued on iron supplements. Patient was working with physical and occupational therapists. Swallow evaluation revealed silent aspiration risk. Diet provided as per speech therapist recommendations with strict aspiration/ reflux precautions. Video swallow evaluation was recommended by speech therapist, which could be done as outpatient. Blood culture were negative. Infectious etiology of altered mental status was ruled out. Lipid panel was stable. Bowel regimen instituted. Supportive care provided. Pain on management was addressed. Patient condition improved, behavior controlled, and he was stable for discharge back to alf facility FINAL DIAGNOSES: Altered mental status due to encephalopathy Aggressive behavior Schizophrenia Anemia COPD Seizure disorder DISCHARGE MEDICATIONS: See Medication Reconciliation list. DISCHARGE INSTRUCTIONS: Patient was discharged to alf facility. Follow up with medical doctor at the facility. I have been assigned to dictate discharge summary for this account. I was not involved in the patient's management. Shaye Devi NP Feb 24, 2018 09:12
--- NOTE | 2018-02-26 12:32 | Cardiology Report ---
APPROVED REPORT EKG Measurement Heart [id number] ID [id number] Normal sinus rhythm Normal ECG
== END 2018-02-21 14:16 | DRG 72 ==
LOC: EDBD 23:13 → EMR 23:29 → 4E 23:49 → EDBEDREQ 02-14 01:09
DX: G93.40 Encephalopathy, unspecified (principal); F29 Unspecified psychosis not due to a substance or known physiological condition; D64.9 Anemia, unspecified; E88.09 Other disorders of plasma-protein metabolism, not elsewhere classified; F20.9 Schizophrenia, unspecified; F31.9 Bipolar disorder, unspecified; J44.9 Chronic obstructive pulmonary disease, unspecified; R45.1 Restlessness and agitation; G40.909 Epilepsy, unspecified, not intractable, without status epilepticus
CPT/HCPCS: 36415; 70450; 71045; 80053; 80061; 81003; 83605; 83735; 84100; 84443; 85025; 87040; 87081; 93005; 93970; 97803; 99285

== ENCOUNTER 2018-05-01 15:26 | Inpatient (IN) | payer MEDICARE, OTHER ==
[~2018-05-01] VITALS: Ht 167.6 cm; Wt 58.8 kg
[~2018-05-01 15:26] MED LIST: ASCORBIC ACID500 M4 ORAL; ATIVAN1 MG ORAL; DEPAKOTE ER500 MG ORAL; DEPAKOTE250 MG PO; FAMOTIDINE20 MG ORAL; FERROUS SULFAT325 MG ORAL; GABAPENTIN300 MG ORAL; MULTIVITAMINS1 EAC2 ORAL; RISPERDAL2 MG ORAL; TOPIRAMATE100 MG ORAL; TRILEPTAL600 MG PO
--- NOTE | 2018-05-01 15:52 | Emergency Room Report ---
History of Present Illness General Chief Complaint: Behavioral Complaint Source: Patient Present Illness HPI 63-year-old male with history of dementia, psychosis, sent from [facility] for increased agitation. Patient has a baseline of being alert and oriented to person only, so very difficult to obtain further history. Allergies: Coded Allergies: No Known Allergies (Unverified , 02/13/18) Patient History Limited by: medical condition Past Medical History: see triage record Reviewed Nursing Documentation: PMH: Agreed; PSxH: Agreed Nursing Documentation-PMH Hx Cardiac Problems: No Hx COPD: Yes - acute respiratory distress syndrome, COPD Hx Cancer: No Hx Gastrointestinal Problems: No Hx Neurological Problems: No Hx Seizures: Yes - epilepsy Hx Speech Problem: Yes Review of Systems All Other Systems: negative except mentioned in HPI Physical Exam Vital Signs Date Time Temp Pulse Resp B/P (MAP) Pulse Ox O2 Delivery O2 Flow Rate FiO2 05/01/18 15:18 98.5 104 22 122/74 94 Room Air 98.4 Sp02 EP Interpretation: reviewed, normal General Appearance: no apparent distress, alert, non-toxic Head: normocephalic Eyes: bilateral eye normal inspection, bilateral eye PERRL, bilateral eye EOMI ENT: normal ENT inspection, hearing grossly normal, normal pharynx, no angioedema, normal voice - saying nonsensical words occasionally, moist mucus membranes Neck: normal inspection, full range of motion, supple, supple/symm/no masses Respiratory: chest non-tender, lungs clear, normal breath sounds, chest symmetrical, palpation of chest normal Cardiovascular #1: normal peripheral pulses, regular rate, rhythm Cardiovascular #2: 2+ radial (R), 2+ radial (L) Gastrointestinal: normal inspection, non tender, soft, no mass, no guarding, no rebound Rectal: deferred Genitourinary: normal inspection, no CVA tenderness Musculoskeletal: back normal, gait/station normal, normal range of motion, non- tender, no calf tenderness Neurologic: alert, responsive, loom fixer helper III-XII nml as tested - Grossly, motor strength/tone normal - Grossly, sensory intact Psychiatric: mood/affect normal - Bizarre affect Skin: normal color, no rash, warm/dry, normal turgor Lymphatic: no adenopathy Medical Decision Making Diagnostic Impression: Primary Impression: Psychosis ER Course Patient with unremarkable EKG, chest x-ray, lab evaluation, hemolytically stable , will be admitted to Dr. Jose Treadwell. EKG Diagnostic Results EKG Time: 15:48 EP Interpretation: no st-t changes, no TWI's Rate: normal Rhythm: NSR ST Segments: no acute changes Rhythm Strip Diag. Results Rhythm Strip Time: 16:07 EP Interpretation: yes Rate: 90 Rhythm: NSR, no PVC's, no ectopy Chest X-Ray Diagnostic Results Chest X-Ray Diagnostic Results : Chest X-Ray Ordered: Yes # of Views/Limited/Complete: 1 View Indication: Other EP Interpretation: Yes Interpretation: no consolidation, no effusion, no pneumothorax, no acute cardiopulmonary disease Impression: No acute disease Electronically Signed by: Bill Olmos MD CT/MRI/US Diagnostic Results CT/MRI/US Diagnostic Results : Imaging Test Ordered: ct head noncontrast Last Vital Signs Date Time Temp Pulse Resp B/P (MAP) Pulse Ox O2 Delivery O2 Flow Rate FiO2 05/01/18 15:18 98.5 104 22 122/74 94 Room Air 98.4 Disposition: ADMITTED INPATIENT Condition: Stable Signed Out To: BILL Crowley M.D May 01, 2018 15:52
[2018-05-01 16:17] LABS: BASOPHILS % (AUTO) 0.9 % (0.0-2.0); EOSINOPHILS % (AUTO) 1.5 % (0.0-3.0); HEMATOCRIT 32.7 % (42.0-52.0); HEMOGLOBIN 11.3 G/DL (14.2-18.0); LYMPHOCYTES % (AUTO) 23.3 % (20.0-45.0); MEAN CORPUSCULAR VOLUME 91 FL (80-99); MONOCYTES % (AUTO) 9.2 % (1.0-10.0); NEUTROPHILS % (AUTO) 65.2 % (45.0-75.0); PLATELET COUNT 149 K/UL (150-450); WHITE BLOOD COUNT 6.5 K/UL (4.8-10.8)
[2018-05-01 16:28] LABS: ANION GAP 5 mmol/L (5-15); BLOOD UREA NITROGEN 26 mg/dL (7-18); CALCIUM 8.7 MG/DL (8.5-10.1); CARBON DIOXIDE 30 MMOL/L (21-32); CHLORIDE 104 MMOL/L (98-107); POTASSIUM 4.5 MMOL/L (3.5-5.1); SODIUM 139 MMOL/L (136-145)
[2018-05-01 16:35] LABS: APPEARANCE,URINE CLEAR; BILIRUBIN, URINE NEGATIVE (NEGATIVE); GLUCOSE, URINE (UA) NEGATIVE (NEGATIVE); KETONES,URINE 1+ (NEGATIVE); LEUKOCYTE ESTERASE ,URINE 1+ (NEGATIVE); NITRITE,URINE NEGATIVE (NEGATIVE); PH,URINE 7 (4.5-8.0); PROTEIN,URINE 1+ (NEGATIVE); UROBILINOGEN,URINE NORMAL MG/DL (0.0-1.0)
[2018-05-01 16:40] LABS: COLOR,URINE YELLOW
--- NOTE | 2018-05-01 16:43 | Diagnostic Imaging Report ---
Indication: Altered level of consciousness Technique: XRAY Chest 1v Comparison: 02/13/2018 Findings: Heart size is stable compared to the prior exam. Sternal contours are sharp fracture deformities of some left-sided ribs are again noted, similar to the prior exam. There are degenerative changes of the spine and mild scoliosis. There is streaky opacity at the right base. Costophrenic sulci are sharp. No pneumothorax. Impression: Streaky opacities at the right base thought to be related to subsegmental atelectasis. Correlate clinically to exclude the possibility of developing pneumonia.
--- NOTE | 2018-05-01 16:46 | Diagnostic Imaging Report ---
Indication: Altered mental status Technique: Continuous helical CT scanning of the head was performed utilizing automated exposure control without intravenous contrast material. Axial and coronal reconstructions were obtained. Comparison: 02/13/2018 CT dose: Total DLP 1393.17 mGycm; CTDI vol 70.38 mGy Findings: There is no acute intracranial hemorrhage, mass effect or midline shift. Vee-white differentiation appears preserved. Calcifications in the bilateral basal ganglia again noted. The ventricles, cisterns and sulci are prominent consistent with atrophy. Periventricular hypoattenuation is seen, a nonspecific finding. Visualized mastoid air cells and paranasal sinuses are clear. There is dehiscence of the jugular bulb on the right. No focal lesions of the bony calvarium or soft tissues of the scalp are seen. IMPRESSION: No evidence of acute intracranial hemorrhage, mass effect or midline shift. No significant interval change from exam of 02/13/2018. MRI may be obtained for more sensitive evaluation as clinically indicated. Atrophy and nonspecific periventricular hypoattenuation suggestive of chronic ischemic microvascular changes. The CT scanner at [facility] is accredited by the [employer] and the scans are performed using protocols designed to limit radiation exposure to as low as reasonably achievable to attain images of sufficient resolution adequate for diagnostic evaluation.
[2018-05-01 16:55] LABS: ALANINE AMINOTRANSFERASE 24 U/L (12-78); ALBUMIN 3.1 G/DL (3.4-5.0); ALBUMIN/GLOBULIN RATIO 0.9 (1.0-2.7); ALKALINE PHOSPHATASE 88 U/L (46-116); ASPARTATE AMINO TRANSFERASE 23 U/L (15-37); BILIRUBIN,TOTAL 0.2 MG/DL (0.2-1.0); CKMB 1.5 NG/ML (0.0-3.6)
[2018-05-01 17:22] VITALS: BP 126/70
[2018-05-01 18:57] VITALS: BP 132/72
[2018-05-01] MEDS ORDERED: LORazepam 1mg tab ORAL PRN (19:00)
[2018-05-01] MEDS ORDERED: Miralax 17gm pkt ORAL PRN (19:00)
[2018-05-01] MEDS ORDERED: Mylanta II UD 30ml ORAL PRN (19:00)
[2018-05-01] MEDS ORDERED: Morphine Sulfate 2mg/ml Inj IVP PRN (19:00)
[2018-05-01] MEDS: Depakote ER 500mg tab ORAL SCH (20:24)
[2018-05-01 21:00] VITALS: BP 146/61
--- NOTE | 2018-05-01 22:13 | Consultation ---
History of Present Illness General Date patient seen: May 01, 2018 Chief Complaint: Behavioral Complaint Present Illness HPI 63-year-old male with history of dementia, schizoaffective d/o. the pt pw more confusion and waxing waning of consciousness. the pt is more confused than baseline. delusional and was aggressive. Allergies: Coded Allergies: No Known Allergies (Unverified , 02/13/18) Medication History Scheduled Ascorbic Acid* (Ascorbic Acid*), 500 MG ORAL DAILY, (Reported) Divalproex Sodium* (Depakote*), 250 MG PO QID, (Reported) Divalproex Sodium* (Depakote Er*), 500 MG ORAL EVERY 12 HOURS, (Reported) Divalproex Sodium* (Depakote Er*), 1,000 MG ORAL EVERY 12 HOURS, (Reported) Divalproex Sodium* (Depakote Er*), 1,000 MG ORAL EVERY 12 HOURS, (Reported) Famotidine (Famotidine), 20 MG ORAL DAILY, (Reported) Ferrous Sulfate* (Ferrous Sulfate*), 325 MG ORAL DAILY, (Reported) Gabapentin* (Gabapentin*), 300 MG ORAL BID, (Reported) Multivitamins* (Multivitamins*), 1 TAB ORAL DAILY, (Reported) Oxcarbazepine* (Trileptal*), 300 MG PO DAILY, (Reported) Risperidone* (Risperdal*), 6 MG ORAL BEDTIME, (Reported) Topiramate* (Topamax*), 100 MG ORAL TWICE A DAY, (Reported) Topiramate* (Topamax*), 100 MG ORAL TWICE A DAY, (Reported) Scheduled PRN Lorazepam* (Ativan*), 1 MG ORAL EVERY 4 HOURS PRN for Agitation, (Reported) Patient History Limited by: medical condition History Provided By: Patient, Medical Record, PMD Healthcare decision maker Resuscitation status Advanced Directive on File Yes Past Medical/Surgical History Past Medical/Surgical History: (1) Altered mental status (2) COPD (chronic obstructive pulmonary disease) (3) Psychosis (4) Seizure disorder (5) Aspiration pneumonia (6) At high risk for aspiration Review of Systems Psychiatric: Reports: prior hx, anxiety, depressed feelings, emotional problems , hallucinations Physical Exam General Appearance: no apparent distress, lethargic, confused, agitated Last 24 Hour Vital Signs Date Time Temp Pulse Resp B/P (MAP) Pulse Ox O2 Delivery O2 Flow Rate FiO2 05/01/18 21:00 98.1 90 21 146/61 (89) 97 98.1 05/01/18 20:12 98.4 82 22 132/72 99 Room Air 98.4 05/01/18 18:57 98.4 82 22 132/72 99 Room Air 98.4 05/01/18 17:22 98.4 89 22 126/70 95 Room Air 98.4 05/01/18 15:18 98.5 104 22 122/74 94 Room Air 98.4 Laboratory Tests Test 05/01/18 16:05 05/01/18 16:24 White Blood Count 6.5 K/UL (4.8-10.8) Red Blood Count 3.60 M/UL (4.70-6.10) L Hemoglobin 11.3 G/DL (14.2-18.0) L Hematocrit 32.7 % (42.0-52.0) L Mean Corpuscular Volume 91 FL (80-99) Mean Corpuscular Hemoglobin 31.4 PG (27.0-31.0) H Mean Corpuscular Hemoglobin Concent 34.6 G/DL (32.0-36.0) Red Cell Distribution Width 13.0 % (11.6-14.8) Platelet Count 149 K/UL (150-450) L Mean Platelet Volume 6.9 FL (6.5-10.1) Neutrophils (%) (Auto) 65.2 % (45.0-75.0) Lymphocytes (%) (Auto) 23.3 % (20.0-45.0) Monocytes (%) (Auto) 9.2 % (1.0-10.0) Eosinophils (%) (Auto) 1.5 % (0.0-3.0) Basophils (%) (Auto) 0.9 % (0.0-2.0) Sodium Level 139 MMOL/L (136-145) Potassium Level 4.5 MMOL/L (3.5-5.1) Chloride Level 104 MMOL/L (98-107) Carbon Dioxide Level 30 MMOL/L (21-32) Anion Gap 5 mmol/L (5-15) Blood Urea Nitrogen 26 mg/dL (7-18) H Creatinine 1.0 MG/DL (0.55-1.30) Estimat Glomerular Filtration Rate > 60 mL/min (>60) Glucose Level 109 MG/DL (74-106) H Calcium Level 8.7 MG/DL (8.5-10.1) Total Bilirubin 0.2 MG/DL (0.2-1.0) Aspartate Amino Transf (AST/SGOT) 23 U/L (15-37) Alanine Aminotransferase (ALT/SGPT) 24 U/L (12-78) Alkaline Phosphatase 88 U/L (46-116) Creatine Kinase MB 1.5 NG/ML (0.0-3.6) Troponin I 0.003 ng/mL (0.000-0.056) Total Protein 6.4 G/DL (6.4-8.2) Albumin 3.1 G/DL (3.4-5.0) L Globulin 3.3 g/dL Albumin/Globulin Ratio 0.9 (1.0-2.7) L Urine Color Yellow Urine Appearance Clear Urine pH 7 (4.5-8.0) Urine Specific [place] 1.010 (1.005-1.035) Urine Protein 1+ (NEGATIVE) H Urine Glucose (UA) Negative (NEGATIVE) Urine Ketones 1+ (NEGATIVE) H Urine Blood Negative (NEGATIVE) Urine Nitrite Negative (NEGATIVE) Urine Bilirubin Negative (NEGATIVE) Urine Urobilinogen Normal MG/DL (0.0-1.0) Urine Leukocyte Esterase 1+ (NEGATIVE) H Urine RBC 0-2 /HPF (0 - 0) H Urine WBC 0-2 /HPF (0 - 0) Urine Squamous Epithelial Cells None /LPF (NONE/OCC) Urine Bacteria Occasional /HPF (NONE) Height (Feet): 5 Height (Inches): 6.00 Weight (Pounds): 140 Medications Current Medications Medications (Trade) Dose Ordered Sig/Carmen Route PRN Reason Start Time Stop Time Status Last Admin Dose Admin Acetaminophen (Tylenol) 650 mg Q4H PRN ORAL fever 05/01/18 19:00 05/31/18 18:59 Al Hydroxide/Mg Hydroxide (Mylanta II) 30 ml Q6H PRN ORAL dyspepsia 05/01/18 19:00 18 18:59 Dextrose (Dextrose 50%) 25 ml PRN IV Hypoglycemia 05/01/18 19:15 05/31/18 19:14 Dextrose (Dextrose 50%) 50 ml PRN IV hypoglycemia 05/01/18 19:15 05/31/18 19:14 Divalproex Sodium (Depakote ER) 1,000 mg EVERY 12 HOURS ORAL 05/01/18 21:00 05/31/18 20:59 05/01/18 20:24 Famotidine (Pepcid) 20 mg DAILY ORAL 05/02/18 09:00 06/01/18 08:59 Gabapentin (Neurontin) 300 mg BID ORAL 05/02/18 09:00 06/01/18 08:59 Lorazepam (Ativan 2mg/ml 1ml) 0.5 mg Q4H PRN IV For Anxiety 05/01/18 19:00 05/08/18 18:59 Lorazepam (Ativan) 1 mg Q4H PRN ORAL Agitation 05/01/18 19:00 05/08/18 18:59 Morphine Sulfate (Morphine Sulfate) 1 mg Q4H PRN IVP For Pain 05/01/18 19:00 05/08/18 18:59 Ondansetron HCl (Zofran) 4 mg Q6H PRN IVP Nausea & Vomiting 05/01/18 19:00 05/31/18 18:59 Oxcarbazepine (Trileptal) 300 mg DAILY ORAL 05/02/18 09:00 06/01/18 08:59 Polyethylene Glycol (Miralax) 17 gm HSPRN PRN ORAL Constipation 05/01/18 19:00 05/31/18 18:59 Risperidone (RisperDAL) 6 mg BEDTIME ORAL 05/01/18 21:00 05/31/18 20:59 05/01/18 20:25 Topiramate (Topamax) 100 mg TWICE A DAY ORAL 05/02/18 09:00 06/01/18 08:59 Zolpidem Tartrate (Ambien) 5 mg HSPRN PRN ORAL Insomnia 05/01/18 19:00 05/08/18 18:59 Assessment/Plan Assessment/Plan Encephalopathy due to [facility] Schizoaffective d/o Ativan prn risperdal 6mg po qhs depakote 1000mg bid Meeta Quintana MD May 01, 2018 22:13
[2018-05-02] VITALS: BP 139/78
[2018-05-02 04:00] VITALS: BP 116/80
[2018-05-02 06:41] LABS: BASOPHILS % (AUTO) 1.5 % (0.0-2.0); EOSINOPHILS % (AUTO) 2.4 % (0.0-3.0); HEMATOCRIT 35.3 % (42.0-52.0); HEMOGLOBIN 11.6 G/DL (14.2-18.0); LYMPHOCYTES % (AUTO) 28.6 % (20.0-45.0); MEAN CORPUSCULAR VOLUME 91 FL (80-99); MONOCYTES % (AUTO) 9.1 % (1.0-10.0); NEUTROPHILS % (AUTO) 58.4 % (45.0-75.0); PLATELET COUNT 139 K/UL (150-450); RED BLOOD COUNT 3.87 M/UL (4.70-6.10); WHITE BLOOD COUNT 6.3 K/UL (4.8-10.8)
[2018-05-02 07:08] LABS: ALANINE AMINOTRANSFERASE 23 U/L (12-78); ALBUMIN 2.9 G/DL (3.4-5.0); ALBUMIN/GLOBULIN RATIO 0.9 (1.0-2.7); ALKALINE PHOSPHATASE 84 U/L (46-116); ANION GAP 4 mmol/L (5-15); ASPARTATE AMINO TRANSFERASE 21 U/L (15-37); BILIRUBIN,TOTAL 0.3 MG/DL (0.2-1.0); BLOOD UREA NITROGEN 25 mg/dL (7-18); CALCIUM 8.3 MG/DL (8.5-10.1); CARBON DIOXIDE 30 MMOL/L (21-32); CHLORIDE 105 MMOL/L (98-107); CHOLESTEROL 139 MG/DL (< 200); CREATININE 0.8 MG/DL (0.55-1.30); HDL CHOLESTEROL 84 MG/DL (40-60); SODIUM 139 MMOL/L (136-145); TRIGLYCERIDES 34 MG/DL (30-150)
[2018-05-02 08:02] VITALS: BP 124/90
[2018-05-02] MEDS ORDERED: Topiramate 100mg tab ORAL SCH (09:00)
[2018-05-02] MEDS: OXcarbazepine 150mg tab ORAL SCH (09:19)
[2018-05-02] MEDS: Depakote ER 500mg tab ORAL SCH ×2 (09:19→21:03)
[2018-05-02] MEDS ORDERED: Albuterol/Ipratropium 3ml neb HHN PRN (11:30)
[2018-05-02 12:00] VITALS: BP 121/77
--- NOTE | 2018-05-02 12:12 | History and Physical ---
History of Present Illness General Date patient seen: May 02, 2018 Reason for Hospitalization: Behavioral Complaint Present Illness HPI 63-year-old male with history of dementia, psychosis, COPD sent from intermediate with CC of congestion and cough. Patient has a baseline of being alert and oriented to person only. Pt is at high risk for aspiration, therefore he is admitted for further work up. Pt is awake, trying to talk but stuttering a lot and difficult to make any sense. Allergies: Coded Allergies: No Known Allergies (Unverified , 02/13/18) Medication History Scheduled Ascorbic Acid* (Ascorbic Acid*), 500 MG ORAL DAILY, (Reported) Divalproex Sodium* (Depakote*), 250 MG PO QID, (Reported) Divalproex Sodium* (Depakote Er*), 500 MG ORAL EVERY 12 HOURS, (Reported) Divalproex Sodium* (Depakote Er*), 1,000 MG ORAL EVERY 12 HOURS, (Reported) Divalproex Sodium* (Depakote Er*), 1,000 MG ORAL EVERY 12 HOURS, (Reported) Famotidine (Famotidine), 20 MG ORAL DAILY, (Reported) Ferrous Sulfate* (Ferrous Sulfate*), 325 MG ORAL DAILY, (Reported) Gabapentin* (Gabapentin*), 300 MG ORAL BID, (Reported) Multivitamins* (Multivitamins*), 1 TAB ORAL DAILY, (Reported) Oxcarbazepine* (Trileptal*), 300 MG PO DAILY, (Reported) Risperidone* (Risperdal*), 6 MG ORAL BEDTIME, (Reported) Topiramate* (Topamax*), 100 MG ORAL TWICE A DAY, (Reported) Topiramate* (Topamax*), 100 MG ORAL TWICE A DAY, (Reported) Scheduled PRN Lorazepam* (Ativan*), 1 MG ORAL EVERY 4 HOURS PRN for Agitation, (Reported) Patient History Healthcare decision maker Resuscitation status Do Not Resuscitate Advanced Directive on File Yes Past Medical/Surgical History Past Medical/Surgical History: (1) COPD (chronic obstructive pulmonary disease) (2) Seizure disorder (3) Psychosis Review of Systems Respiratory: Reports: cough, shortness of breath Physical Exam General Appearance: cachetic Lines, tubes and drains: peripheral HEENT: normocephalic Neck: non-tender, normal alignment, limited range of motion Respiratory/Chest: chest wall non-tender, lungs clear Breasts: no masses Cardiovascular/Chest: normal peripheral pulses Abdomen: normal bowel sounds Genitourinary/Rectal: normal genital exam Last 24 Hour Vital Signs Date Time Temp Pulse Resp B/P (MAP) Pulse Ox O2 Delivery O2 Flow Rate FiO2 05/02/18 09:00 Room Air 05/02/18 08:02 98.2 93 21 124/90 (101) 97 98.2 05/02/18 04:00 98.2 80 20 116/80 (92) 96 98.2 05/02/18 00:00 98.1 94 21 139/78 (98) 97 98.1 05/01/18 23:28 Room Air 05/01/18 21:00 98.1 90 21 146/61 (89) 97 98.1 05/01/18 20:12 98.4 82 22 132/72 99 Room Air 98.4 05/01/18 18:57 98.4 82 22 132/72 99 Room Air 98.4 05/01/18 17:22 98.4 89 22 126/70 95 Room Air 98.4 05/01/18 15:18 98.5 104 22 122/74 94 Room Air 98.4 Intake and Output 05/01/18 05/02/18 19:00 07:00 Intake Total 1000 ml Balance 1000 ml IV Total 1000 ml # Voids 1 5 Laboratory Tests Test 05/01/18 16:05 05/01/18 16:24 05/02/18 05:30 White Blood Count 6.5 K/UL (4.8-10.8) 6.3 K/UL (4.8-10.8) Red Blood Count 3.60 M/UL (4.70-6.10) L 3.87 M/UL (4.70-6.10) L Hemoglobin 11.3 G/DL (14.2-18.0) L 11.6 G/DL (14.2-18.0) L Hematocrit 32.7 % (42.0-52.0) L 35.3 % (42.0-52.0) L Mean Corpuscular Volume 91 FL (80-99) 91 FL (80-99) Mean Corpuscular Hemoglobin 31.4 PG (27.0-31.0) H 29.9 PG (27.0-31.0) Mean Corpuscular Hemoglobin Concent 34.6 G/DL (32.0-36.0) 32.7 G/DL (32.0-36.0) Red Cell Distribution Width 13.0 % (11.6-14.8) 13.0 % (11.6-14.8) Platelet Count 149 K/UL (150-450) L 139 K/UL (150-450) L Mean Platelet Volume 6.9 FL (6.5-10.1) 6.4 FL (6.5-10.1) L Neutrophils (%) (Auto) 65.2 % (45.0-75.0) 58.4 % (45.0-75.0) Lymphocytes (%) (Auto) 23.3 % (20.0-45.0) 28.6 % (20.0-45.0) Monocytes (%) (Auto) 9.2 % (1.0-10.0) 9.1 % (1.0-10.0) Eosinophils (%) (Auto) 1.5 % (0.0-3.0) 2.4 % (0.0-3.0) Basophils (%) (Auto) 0.9 % (0.0-2.0) 1.5 % (0.0-2.0) Sodium Level 139 MMOL/L (136-145) 139 MMOL/L (136-145) Potassium Level 4.5 MMOL/L (3.5-5.1) 4.0 MMOL/L (3.5-5.1) Chloride Level 104 MMOL/L (98-107) 105 MMOL/L (98-107) Carbon Dioxide Level 30 MMOL/L (21-32) 30 MMOL/L (21-32) Anion Gap 5 mmol/L (5-15) 4 mmol/L (5-15) L Blood Urea Nitrogen 26 mg/dL (7-18) H 25 mg/dL (7-18) H Creatinine 1.0 MG/DL (0.55-1.30) 0.8 MG/DL (0.55-1.30) Estimat Glomerular Filtration Rate > 60 mL/min (>60) > 60 mL/min (>60) Glucose Level 109 MG/DL (74-106) H 94 MG/DL (74-106) Calcium Level 8.7 MG/DL (8.5-10.1) 8.3 MG/DL (8.5-10.1) L Total Bilirubin 0.2 MG/DL (0.2-1.0) 0.3 MG/DL (0.2-1.0) Aspartate Amino Transf (AST/SGOT) 23 U/L (15-37) 21 U/L (15-37) Alanine Aminotransferase (ALT/SGPT) 24 U/L (12-78) 23 U/L (12-78) Alkaline Phosphatase 88 U/L (46-116) 84 U/L (46-116) Creatine Kinase MB 1.5 NG/ML (0.0-3.6) Troponin I 0.003 ng/mL (0.000-0.056) Total Protein 6.4 G/DL (6.4-8.2) 6.3 G/DL (6.4-8.2) L Albumin 3.1 G/DL (3.4-5.0) L 2.9 G/DL (3.4-5.0) L Globulin 3.3 g/dL 3.4 g/dL Albumin/Globulin Ratio 0.9 (1.0-2.7) L 0.9 (1.0-2.7) L Urine Color Yellow Urine Appearance Clear Urine pH 7 (4.5-8.0) Urine Specific [place] 1.010 (1.005-1.035) Urine Protein 1+ (NEGATIVE) H Urine Glucose (UA) Negative (NEGATIVE) Urine Ketones 1+ (NEGATIVE) H Urine Blood Negative (NEGATIVE) Urine Nitrite Negative (NEGATIVE) Urine Bilirubin Negative (NEGATIVE) Urine Urobilinogen Normal MG/DL (0.0-1.0) Urine Leukocyte Esterase 1+ (NEGATIVE) H Urine RBC 0-2 /HPF (0 - 0) H Urine WBC 0-2 /HPF (0 - 0) Urine Squamous Epithelial Cells None /LPF (NONE/OCC) Urine Bacteria Occasional /HPF (NONE) Triglycerides Level 34 MG/DL (30-150) Cholesterol Level 139 MG/DL (< 200) LDL Cholesterol 45 mg/dL (<100) HDL Cholesterol 84 MG/DL (40-60) H Cholesterol/HDL Ratio 1.7 (3.3-4.4) L Thyroid Stimulating Hormone (TSH) 3.372 uiU/mL (0.358-3.740) Height (Feet): 5 Height (Inches): 6.00 Weight (Pounds): 140 Medications Current Medications Medications (Trade) Dose Ordered Sig/Carmen Route PRN Reason Start Time Stop Time Status Last Admin Dose Admin Acetaminophen (Tylenol) 650 mg Q4H PRN ORAL fever 05/01/18 19:00 05/31/18 18:59 Al Hydroxide/Mg Hydroxide (Mylanta II) 30 ml Q6H PRN ORAL dyspepsia 05/01/18 19:00 05/31/18 18:59 Albuterol/ Ipratropium (Albuterol/ Ipratropium) 3 ml Q6H PRN HHN Shortness of Breath 05/02/18 11:30 05/07/18 11:29 Dextrose (Dextrose 50%) 25 ml PRN IV Hypoglycemia 05/01/18 19:15 05/31/18 19:14 Dextrose (Dextrose 50%) 50 ml PRN IV hypoglycemia 05/01/18 19:15 05/31/18 19:14 Divalproex Sodium (Depakote ER) 1,000 mg EVERY 12 HOURS ORAL 05/01/18 21:00 05/31/18 20:59 05/02/18 09:19 Famotidine (Pepcid) 20 mg DAILY ORAL 05/02/18 09:00 06/01/18 08:59 05/02/18 09:19 Gabapentin (Neurontin) 300 mg BID ORAL 05/02/18 09:00 06/01/18 08:59 05/02/18 09:19 Lorazepam (Ativan 2mg/ml 1ml) 0.5 mg Q4H PRN IV For Anxiety 05/01/18 19:00 05/08/18 18:59 Lorazepam (Ativan) 1 mg Q4H PRN ORAL Agitation 05/01/18 19:00 05/08/18 18:59 05/02/18 09:22 Morphine Sulfate (Morphine Sulfate) 1 mg Q4H PRN IVP For Pain 05/01/18 19:00 05/08/18 18:59 Ondansetron HCl (Zofran) 4 mg Q6H PRN IVP Nausea & Vomiting 05/01/18 19:00 05/31/18 18:59 Oxcarbazepine (Trileptal) 300 mg DAILY ORAL 05/02/18 09:00 06/01/18 08:59 05/02/18 09:19 Polyethylene Glycol (Miralax) 17 gm HSPRN PRN ORAL Constipation 05/01/18 19:00 05/31/18 18:59 Risperidone (RisperDAL) 6 mg BEDTIME ORAL 05/01/18 21:00 05/31/18 20:59 05/01/18 20:25 Topiramate (Topamax) 100 mg TWICE A DAY ORAL 05/02/18 09:00 06/01/18 08:59 05/02/18 09:19 Zolpidem Tartrate (Ambien) 5 mg HSPRN PRN ORAL Insomnia 05/01/18 19:00 05/08/18 18:59 Assessment/Plan Problem List: (1) Aspiration pneumonia ICD Codes: J69.0 - Pneumonitis due to inhalation of food and vomit SNOMED: 976617046 (2) COPD (chronic obstructive pulmonary disease) ICD Codes: J44.9 - Chronic obstructive pulmonary disease, unspecified SNOMED: 91874423 (3) At high risk for aspiration ICD Codes: Z91.89 - Other specified personal risk factors, not elsewhere classified SNOMED: 032323596 (4) Psychosis ICD Codes: F29 - Unspecified psychosis not due to a substance or known physiological condition SNOMED: 51946356 (5) Seizure disorder ICD Codes: G40.909 - Epilepsy, unspecified, not intractable, without status epilepticus SNOMED: 052761539 Assessment/Plan check sputum respiratory treatment check cultures iv abx repeat cxr in a few days swallow study psych to see. Joana Morton MD May 02, 2018 12:12
[2018-05-02] MEDS: Piperacillin/Tazobactam 3.375 GM in D5W 110 ML IVPB SCH ×2 (14:15→21:15)
--- NOTE | 2018-05-02 14:19 | Cardiology Report ---
APPROVED REPORT EKG Measurement Heart [id number] Normal sinus rhythm Normal ECG
--- NOTE | 2018-05-02 14:46 | General Progress Note ---
Assessment/Plan Assessment/Plan [place] [facility] [place]oa[place]ive [place]/o Ativan prn Risperdal 6mg po qhs Depakote 1000mg bid dc Topamax Subjective Date patient seen: May 02, 2018 Neurologic/Psychiatric: Reports: anxiety, depressed, emotional problems Allergies: Coded Allergies: No Known Allergies (Unverified , 02/13/18) Objective Last 24 Hour Vital Signs Date Time Temp Pulse Resp B/P (MAP) Pulse Ox O2 Delivery O2 Flow Rate FiO2 05/02/18 12:00 97.8 89 19 121/77 (92) 97 97.8 05/02/18 09:00 Room Air 05/02/18 08:02 98.2 93 21 124/90 (101) 97 98.2 05/02/18 04:00 98.2 80 20 116/80 (92) 96 98.2 05/02/18 00:00 98.1 94 21 139/78 (98) 97 98.1 05/01/18 23:28 Room Air 05/01/18 21:00 98.1 90 21 146/61 (89) 97 98.1 05/01/18 20:12 98.4 82 22 132/72 99 Room Air 98.4 05/01/18 18:57 98.4 82 22 132/72 99 Room Air 98.4 05/01/18 17:22 98.4 89 22 126/70 95 Room Air 98.4 05/01/18 15:18 98.5 104 22 122/74 94 Room Air 98.4 Intake and Output 05/01/18 05/02/18 19:00 07:00 Intake Total 1000 ml Balance 1000 ml IV Total 1000 ml # Voids 1 5 Laboratory Tests 05/01/18 16:05: White Blood Count 6.5, Red Blood Count 3.60L, Hemoglobin 11.3L, Hematocrit 32.7L , Mean Corpuscular Volume 91, Mean Corpuscular Hemoglobin 31.4H, Mean Corpuscular Hemoglobin Concent 34.6, Red Cell Distribution Width 13.0, Platelet Count 149L, Mean Platelet Volume 6.9, Neutrophils (%) (Auto) 65.2, Lymphocytes ( %) (Auto) 23.3, Monocytes (%) (Auto) 9.2, Eosinophils (%) (Auto) 1.5, Basophils (%) (Auto) 0.9, Sodium Level 139, Potassium Level 4.5, Chloride Level 104, Carbon Dioxide Level 30, Anion Gap 5, Blood Urea Nitrogen 26H, Creatinine 1.0, Estimat Glomerular Filtration Rate > 60, Glucose Level 109H, Calcium Level 8.7, Total Bilirubin 0.2, Aspartate Amino Transf (AST/SGOT) 23, Alanine Aminotransferase (ALT/SGPT) 24, Alkaline Phosphatase 88, Creatine Kinase MB 1.5 , Troponin I 0.003, Total Protein 6.4, Albumin 3.1L, Globulin 3.3, Albumin/ Globulin Ratio 0.9L 05/01/18 16:24: Urine Color Yellow, Urine Appearance Clear, Urine pH 7, Urine Specific [place] 1.010, Urine Protein 1+H, Urine Glucose (UA) Negative, Urine Ketones 1+H, Urine Blood Negative, Urine Nitrite Negative, Urine Bilirubin Negative, Urine Urobilinogen Normal, Urine Leukocyte Esterase 1+H, Urine RBC 0-2H, Urine WBC 0-2 , Urine Squamous Epithelial Cells None, Urine Bacteria Occasional 05/02/18 05:30: White Blood Count 6.3, Red Blood Count 3.87L, Hemoglobin 11.6L, Hematocrit 35.3L , Mean Corpuscular Volume 91, Mean Corpuscular Hemoglobin 29.9, Mean Corpuscular Hemoglobin Concent 32.7, Red Cell Distribution Width 13.0, Platelet Count 139L, Mean Platelet Volume 6.4L, Neutrophils (%) (Auto) 58.4, Lymphocytes (%) (Auto) 28.6, Monocytes (%) (Auto) 9.1, Eosinophils (%) (Auto) 2.4, Basophils (%) (Auto) 1.5, Sodium Level 139, Potassium Level 4.0, Chloride Level 105, Carbon Dioxide Level 30, Anion Gap 4L, Blood Urea Nitrogen 25H, Creatinine 0.8, Estimat Glomerular Filtration Rate > 60, Glucose Level 94, Calcium Level 8.3L, Total Bilirubin 0.3, Aspartate Amino Transf (AST/SGOT) 21, Alanine Aminotransferase (ALT/SGPT) 23, Alkaline Phosphatase 84, Total Protein 6.3L, Albumin 2.9L, Globulin 3.4, Albumin/Globulin Ratio 0.9L, Triglycerides Level 34 , Cholesterol Level 139, LDL Cholesterol 45, HDL Cholesterol 84H, Cholesterol/ HDL Ratio 1.7L, Thyroid Stimulating Hormone (TSH) 3.372 Height (Feet): 5 Height (Inches): 6.00 Weight (Pounds): 140 General Appearance: no apparent distress, alert, confused, agitated Meeta Quintana MD May 02, 2018 14:46
[2018-05-02] MEDS: Promethazine/Codeine 5ml UD ORAL PRN (15:56)
[2018-05-02 16:00] VITALS: BP 106/84
--- NOTE | 2018-05-02 17:15 | Consultation ---
DATE OF CONSULTATION: 05/02/2018 TIME SEEN: 1 p.m. CONSULTING PHYSICIAN: Jose Treadwell D.O. CHIEF COMPLAINT: Confusion, dementia, weakness. BRIEF HISTORY: This is a 63-year-old male from [facility] presented to [facility] with history of increased confusion, weakness, altered mental status. The patient diagnosed with above and admitted to medical floor for further treatment. Currently, lethargic, sleeping in bed, not talking much. REVIEW OF SYSTEMS: Unavailable. PAST MEDICAL HISTORY: Include altered mental status, COPD, psych disorder, seizure. PAST SURGICAL HISTORY: Unknown. MEDICATIONS: Include theophylline, Zosyn, promethazine, albuterol, famotidine, gabapentin, Trileptal, topiramate, risperidone, Tylenol, lorazepam, Zofran, zolpidem. ALLERGIES: Denies. SOCIAL HISTORY: Unable to obtain secondary to the patient's condition OBJECTIVE: GENERAL: Lethargic in bed, not responding to questions. VITAL SIGNS: Temperature is 97 degrees, pulse 89, respirations 19, and blood pressure 121/77. CARDIOVASCULAR: No murmurs. LUNGS: Poor exchange. ABDOMEN: Bowel sounds distant. EXTREMITIES: No cyanosis, clubbing, or edema. NEUROLOGIC: The patient moves all extremities slightly but not following directions. LABORATORY AND DIAGNOSTIC DATA: Hemoglobin and hematocrit 11 and 35, platelets 139. BUN and creatinine 25 and 0.8. Albumin is 2.9. Urinalysis shows 1+ leukocyte esterase. ASSESSMENT: 1. Altered mental status. 2. Urinary tract infection. 3. Dementia. 4. Malnutrition. 5. Chronic obstructive pulmonary disease. 6. Anemia. 7. Psych history. 8. Seizure. PLAN: 1. Seizure control. 2. OT, PT, and dietary followup. 3. Antibiotics per Infectious Diseases. 4. Psych treatment. 5. Neurology followup. 6. We will continue to follow this patient. Jose Treadwell D.O. DR: Doe JOB#: [id number] CC:
[2018-05-02] MEDS: LORazepam 1mg tab ORAL PRN ×2 (17:38→23:00)
[2018-05-02 20:00] VITALS: BP 122/70
[2018-05-02] MEDS: Theophylline ER 100mg ORAL SCH (21:03)
[2018-05-03] VITALS: BP 102/57
[2018-05-03 04:00] VITALS: BP 110/60
[2018-05-03] MEDS: Piperacillin/Tazobactam 3.375 GM in D5W 110 ML IVPB SCH ×3 (05:27→21:33)
[2018-05-03 06:12] LABS: BASOPHILS % (AUTO) 0.9 % (0.0-2.0); EOSINOPHILS % (AUTO) 1.3 % (0.0-3.0); HEMATOCRIT 35.1 % (42.0-52.0); HEMOGLOBIN 11.5 G/DL (14.2-18.0); LYMPHOCYTES % (AUTO) 25.1 % (20.0-45.0); MEAN CORPUSCULAR VOLUME 91 FL (80-99); MONOCYTES % (AUTO) 8.5 % (1.0-10.0); NEUTROPHILS % (AUTO) 64.2 % (45.0-75.0); PLATELET COUNT 154 K/UL (150-450); RED BLOOD COUNT 3.84 M/UL (4.70-6.10); RED CELL DISTRIBUTION WIDTH 13.2 % (11.6-14.8)
[2018-05-03 06:55] LABS: ALANINE AMINOTRANSFERASE 20 U/L (12-78); ALBUMIN 2.6 G/DL (3.4-5.0); ALBUMIN/GLOBULIN RATIO 0.8 (1.0-2.7); ALKALINE PHOSPHATASE 75 U/L (46-116); ANION GAP 4 mmol/L (5-15); ASPARTATE AMINO TRANSFERASE 18 U/L (15-37); BILIRUBIN,TOTAL 0.3 MG/DL (0.2-1.0); BLOOD UREA NITROGEN 19 mg/dL (7-18); CALCIUM 8.1 MG/DL (8.5-10.1); CARBON DIOXIDE 27 MMOL/L (21-32); CHLORIDE 108 MMOL/L (98-107); CREATININE 0.9 MG/DL (0.55-1.30); PHOSPHORUS 3.7 MG/DL (2.5-4.9); POTASSIUM 4.1 MMOL/L (3.5-5.1); SODIUM 139 MMOL/L (136-145)
[2018-05-03 08:00] VITALS: BP 102/62
[2018-05-03] MEDS: Depakote ER 500mg tab ORAL SCH (09:00)
[2018-05-03] MEDS: LORazepam 1mg tab ORAL PRN (09:22)
[2018-05-03] MEDS: Theophylline ER 100mg ORAL SCH ×2 (09:22→20:14)
[2018-05-03] MEDS: OXcarbazepine 150mg tab ORAL SCH (09:23)
[2018-05-03 12:00] VITALS: BP 121/61
[2018-05-03] MEDS: Valproic Acid 500mg/10ml liquid NG SCH ×3 (12:04→23:38)
--- NOTE | 2018-05-03 13:44 | Pulmonology Progress Note ---
Assessment/Plan Problems: (1) Aspiration pneumonia (2) COPD (chronic obstructive pulmonary disease) (3) At high risk for aspiration (4) Psychosis (5) Seizure disorder Assessment/Plan swallow test reviewed continue abx respiratory treatment check electrolytes f/u by psych dvt prophylaxis Subjective ROS Limited/Unobtainable: No Constitutional: Reports: no symptoms HEENT: Repors: no symptoms Allergies: Coded Allergies: No Known Allergies (Unverified , 02/13/18) Objective Last 24 Hour Vital Signs Date Time Temp Pulse Resp B/P (MAP) Pulse Ox O2 Delivery O2 Flow Rate FiO2 05/03/18 12:00 97.9 86 21 121/61 (81) 97 97.9 05/03/18 11:14 92 18 96 Room Air 21 05/03/18 11:14 92 18 96 Room Air 21 05/03/18 09:00 Room Air 05/03/18 08:00 98.1 88 21 102/62 (75) 97 98.1 05/03/18 06:45 89 18 95 Room Air 21 05/03/18 06:45 89 18 96 Room Air 21 05/03/18 04:00 97.5 94 18 110/60 (77) 95 97.5 05/03/18 03:39 Room Air 05/03/18 03:38 Room Air 05/03/18 00:00 97.3 92 19 102/57 (72) 94 97.3 05/02/18 23:35 92 20 94 Room Air 21 05/02/18 23:30 90 18 94 Room Air 21 05/02/18 21:00 Room Air 05/02/18 20:00 99.0 93 18 122/70 (87) 94 99.0 05/02/18 20:00 95 22 95 Room Air 21 05/02/18 19:50 92 20 95 Room Air 21 05/02/18 16:00 97.2 98 20 106/84 (91) 97 97.2 05/02/18 15:16 96 18 98 Room Air 21 05/02/18 15:13 94 18 97 Room Air 21 Intake and Output 05/02/18 05/03/18 19:00 07:00 Intake Total 940.0 ml 617.5 ml Output Total 950 ml Balance -10.0 ml 617.5 ml Intake Oral 830 ml 480 ml IV Total 110.0 ml 137.5 ml Output Urine Total 950 ml # Voids 1 2 General Appearance: WD/WN HEENT: normocephalic, atraumatic Respiratory/Chest: chest wall non-tender, lungs clear Cardiovascular: normal peripheral pulses, normal rate Abdomen: normal bowel sounds, soft, non tender Genitourinary: normal external genitalia Extremities: no clubbing 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 Resulted Laboratory Tests 05/02/18 15:10: Valproic Acid (Depakene) Level 62 05/03/18 05:35: White Blood Count 7.0, Red Blood Count 3.84L, Hemoglobin 11.5L, Hematocrit 35.1L , Mean Corpuscular Volume 91, Mean Corpuscular Hemoglobin 29.9, Mean Corpuscular Hemoglobin Concent 32.7, Red Cell Distribution Width 13.2, Platelet Count 154, Mean Platelet Volume 6.9, Neutrophils (%) (Auto) 64.2, Lymphocytes (% ) (Auto) 25.1, Monocytes (%) (Auto) 8.5, Eosinophils (%) (Auto) 1.3, Basophils ( %) (Auto) 0.9, Erythrocyte Sedimentation Rate 25H, Sodium Level 139, Potassium Level 4.1, Chloride Level 108H, Carbon Dioxide Level 27, Anion Gap 4L, Blood Urea Nitrogen 19H, Creatinine 0.9, Estimat Glomerular Filtration Rate > 60, Glucose Level 93, Calcium Level 8.1L, Phosphorus Level 3.7, Magnesium Level 2.1 , Total Bilirubin 0.3, Aspartate Amino Transf (AST/SGOT) 18, Alanine Aminotransferase (ALT/SGPT) 20, Alkaline Phosphatase 75, Total Protein 5.9L, Albumin 2.6L, Globulin 3.3, Albumin/Globulin Ratio 0.8L Current Medications Medications (Trade) Dose Ordered Sig/Carmen Route PRN Reason Start Time Stop Time Status Last Admin Dose Admin Acetaminophen (Tylenol) 650 mg Q4H PRN ORAL fever 05/01/18 19:00 18 18:59 Al Hydroxide/Mg Hydroxide (Mylanta II) 30 ml Q6H PRN ORAL dyspepsia 05/01/18 19:00 10/17/18 18:59 Albuterol/ Ipratropium (Albuterol/ Ipratropium) 3 ml Q6H PRN HHN Shortness of Breath 05/02/18 11:30 05/07/18 11:29 Dextrose (Dextrose 50%) 25 ml PRN IV Hypoglycemia 05/01/18 19:15 05/31/18 19:14 Dextrose (Dextrose 50%) 50 ml PRN IV hypoglycemia 05/01/18 19:15 05/31/18 19:14 Famotidine (Pepcid) 20 mg DAILY ORAL 05/02/18 09:00 06/01/18 08:59 05/03/18 09:22 Gabapentin (Neurontin) 300 mg BID ORAL 05/02/18 09:00 06/01/18 08:59 05/03/18 09:22 Lorazepam (Ativan 2mg/ml 1ml) 0.5 mg Q4H PRN IV For Anxiety 05/01/18 19:00 05/08/18 18:59 Lorazepam (Ativan) 2 mg Q4H PRN ORAL Agitation 05/02/18 15:00 05/09/18 14:59 05/03/18 09:22 Morphine Sulfate (Morphine Sulfate) 1 mg Q4H PRN IVP For Pain 05/01/18 19:00 05/08/18 18:59 Ondansetron HCl (Zofran) 4 mg Q6H PRN IVP Nausea & Vomiting 05/01/18 19:00 05/31/18 18:59 Oxcarbazepine (Trileptal) 300 mg DAILY ORAL 05/02/18 09:00 06/01/18 08:59 05/03/18 09:23 Piperacillin Sod/ Tazobactam Sod 3.375 gm/Dextrose 110 ml @ 27.5 mls/hr EVERY 8 HOURS IVPB 05/02/18 14:00 05/07/18 13:59 05/03/18 05:27 Polyethylene Glycol (Miralax) 17 gm HSPRN PRN ORAL Constipation 05/01/18 19:00 05/31/18 18:59 Promethazine HCl/ Codeine (Phenergan with Codeine) 5 ml Q4H PRN ORAL For Cough 05/02/18 12:15 06/01/18 12:14 05/02/18 15:56 Risperidone (RisperDAL) 6 mg BEDTIME ORAL 05/01/18 21:00 05/31/18 20:59 05/02/18 21:03 Theophylline (Bharat-Dur) 100 mg EVERY 12 HOURS ORAL 05/02/18 21:00 06/01/18 20:59 05/03/18 09:22 Valproic Acid (Depakene) 500 mg Q6HR NG 05/03/18 12:00 06/02/18 11:59 05/03/18 12:04 Zolpidem Tartrate (Ambien) 5 mg HSPRN PRN ORAL Insomnia 05/01/18 19:00 05/08/18 18:59 Joana Morton MD May 03, 2018 13:43
--- NOTE | 2018-05-03 14:03 | General Progress Note ---
Assessment/Plan Problem List: (1) Malnutrition ICD Codes: E46 - Unspecified protein-calorie malnutrition SNOMED: 62353427 (2) UTI (urinary tract infection) ICD Codes: N39.0 - Urinary tract infection, site not specified SNOMED: 19108580 (3) Anemia ICD Codes: D64.9 - Anemia, unspecified SNOMED: 281897286 (4) COPD (chronic obstructive pulmonary disease) ICD Codes: J44.9 - Chronic obstructive pulmonary disease, unspecified SNOMED: 29170690 (5) Psychosis ICD Codes: F29 - Unspecified psychosis not due to a substance or known physiological condition SNOMED: 77241156 (6) Seizure disorder ICD Codes: G40.909 - Epilepsy, unspecified, not intractable, without status epilepticus SNOMED: 683523136 (7) Altered mental status ICD Codes: R41.82 - Altered mental status, unspecified SNOMED: 159718099 Status: unchanged Assessment/Plan ot pt diet ebx seizure control neuro psyc f/u cbc bmp am Subjective Constitutional: Reports: weakness Allergies: Coded Allergies: No Known Allergies (Unverified , 02/13/18) All Systems: reviewed and negative except above Subjective confused in bed Objective Last 24 Hour Vital Signs Date Time Temp Pulse Resp B/P (MAP) Pulse Ox O2 Delivery O2 Flow Rate FiO2 05/03/18 12:00 97.9 86 21 121/61 (81) 97 97.9 05/03/18 11:14 92 18 96 Room Air 21 05/03/18 11:14 92 18 96 Room Air 05/03/18 09:00 Room Air 05/03/18 08:00 98.1 88 21 102/62 (75) 97 98.1 05/03/18 06:45 89 18 95 Room Air 21 05/03/18 06:45 89 18 96 Room Air 21 05/03/18 04:00 97.5 94 18 110/60 (77) 95 97.5 05/03/18 03:39 Room Air 05/03/18 03:38 Room Air 05/03/18 00:00 97.3 92 19 102/57 (72) 94 97.3 05/02/18 23:35 92 20 94 Room Air 21 05/02/18 23:30 90 18 94 Room Air 21 05/02/18 21:00 Room Air 05/02/18 20:00 99.0 93 18 122/70 (87) 94 99.0 05/02/18 20:00 95 22 95 Room Air 21 05/02/18 19:50 92 20 95 Room Air 21 05/02/18 16:00 97.2 98 20 106/84 (91) 97 97.2 05/02/18 15:16 96 18 98 Room Air 21 05/02/18 15:13 94 18 97 Room Air 21 Intake and Output 05/02/18 05/03/18 19:00 07:00 Intake Total 940.0 ml 617.5 ml Output Total 950 ml Balance -10.0 ml 617.5 ml Intake Oral 830 ml 480 ml IV Total 110.0 ml 137.5 ml Output Urine Total 950 ml # Voids 1 2 Laboratory Tests 05/02/18 15:10: Valproic Acid (Depakene) Level 62 05/03/18 05:35: White Blood Count 7.0, Red Blood Count 3.84L, Hemoglobin 11.5L, Hematocrit 35.1L , Mean Corpuscular Volume 91, Mean Corpuscular Hemoglobin 29.9, Mean Corpuscular Hemoglobin Concent 32.7, Red Cell Distribution Width 13.2, Platelet Count 154, Mean Platelet Volume 6.9, Neutrophils (%) (Auto) 64.2, Lymphocytes (% ) (Auto) 25.1, Monocytes (%) (Auto) 8.5, Eosinophils (%) (Auto) 1.3, Basophils ( %) (Auto) 0.9, Erythrocyte Sedimentation Rate 25H, Sodium Level 139, Potassium Level 4.1, Chloride Level 108H, Carbon Dioxide Level 27, Anion Gap 4L, Blood Urea Nitrogen 19H, Creatinine 0.9, Estimat Glomerular Filtration Rate > 60, Glucose Level 93, Calcium Level 8.1L, Phosphorus Level 3.7, Magnesium Level 2.1 , Total Bilirubin 0.3, Aspartate Amino Transf (AST/SGOT) 18, Alanine Aminotransferase (ALT/SGPT) 20, Alkaline Phosphatase 75, Total Protein 5.9L, Albumin 2.6L, Globulin 3.3, Albumin/Globulin Ratio 0.8L Height (Feet): 5 Height (Inches): 6.00 Weight (Pounds): 129 General Appearance: lethargic, confused EENT: normal ENT inspection Neck: normal alignment Cardiovascular: normal peripheral pulses, normal rate, regular rhythm Respiratory/Chest: chest wall non-tender, lungs clear, normal breath sounds Abdomen: normal bowel sounds, non tender, soft Extremities: normal inspection Edema: no edema noted Arm (L), no edema noted Arm (R), no edema noted Leg (L), no edema noted Leg (R), no edema noted Pedal (L), no edema noted Pedal (R), no edema noted Generalized Neurologic: motor weakness Skin: normal pigmentation, warm/dry Jose Treadwell DO May 03, 2018 14:03
[2018-05-03] MEDS: LORazepam Inj 2mg/ml 1ml IV PRN ×2 (15:03→19:24)
[2018-05-03] MEDS ORDERED: NS 500ML ONE (15:33)
[2018-05-03] MEDS ORDERED: Tubing IV Secondary IV ONE (15:33)
[2018-05-03 16:00] VITALS: BP 107/68
[2018-05-03 20:00] VITALS: BP 120/77
[2018-05-03] MEDS: Promethazine/Codeine 5ml UD ORAL PRN (21:52)
--- NOTE | 2018-05-03 21:59 | General Progress Note ---
Assessment/Plan Status: stable, progressing Assessment/Plan Encephalopathy due to [facility] [place] Schizoaffective d/o Ativan prn Risperdal 6mg po qhs Depakote 1000mg bid dc Topamax Subjective Date patient seen: May 03, 2018 Neurologic/Psychiatric: Reports: anxiety, depressed, emotional problems Allergies: Coded Allergies: No Known Allergies (Unverified , 02/13/18) Objective Last 24 Hour Vital Signs Date Time Temp Pulse Resp B/P (MAP) Pulse Ox O2 Delivery O2 Flow Rate FiO2 05/03/18 21:00 Room Air 05/03/18 20:00 97.5 82 21 120/77 (91) 94 97.5 05/03/18 19:04 Room Air 05/03/18 19:04 Room Air 05/03/18 16:00 97.1 70 20 107/68 (81) 97 97.1 05/03/18 15:40 91 18 97 Room Air 21 05/03/18 15:40 91 18 97 Room Air 21 05/03/18 12:00 97.9 86 21 121/61 (81) 97 97.9 05/03/18 11:14 92 18 96 Room Air 21 05/03/18 11:14 92 18 96 Room Air 21 05/03/18 09:00 Room Air 05/03/18 08:00 98.1 88 21 102/62 (75) 97 98.1 05/03/18 06:45 89 18 95 Room Air 21 05/03/18 06:45 89 18 96 Room Air 21 05/03/18 04:00 97.5 94 18 110/60 (77) 95 97.5 05/03/18 03:39 Room Air 05/03/18 03:38 Room Air 05/03/18 00:00 97.3 92 19 102/57 (72) 94 97.3 05/02/18 23:35 92 20 94 Room Air 21 05/02/18 23:30 90 18 94 Room Air 21 Intake and Output 05/02/18 05/03/18 19:00 07:00 Intake Total 940.0 ml 617.5 ml Output Total 950 ml Balance -10.0 ml 617.5 ml Intake Oral 830 ml 480 ml IV Total 110.0 ml 137.5 ml Output Urine Total 950 ml # Voids 1 2 Laboratory Tests 05/03/18 05:35: White Blood Count 7.0, Red Blood Count 3.84L, Hemoglobin 11.5L, Hematocrit 35.1L , Mean Corpuscular Volume 91, Mean Corpuscular Hemoglobin 29.9, Mean Corpuscular Hemoglobin Concent 32.7, Red Cell Distribution Width 13.2, Platelet Count 154, Mean Platelet Volume 6.9, Neutrophils (%) (Auto) 64.2, Lymphocytes (% ) (Auto) 25.1, Monocytes (%) (Auto) 8.5, Eosinophils (%) (Auto) 1.3, Basophils ( %) (Auto) 0.9, Erythrocyte Sedimentation Rate 25H, Sodium Level 139, Potassium Level 4.1, Chloride Level 108H, Carbon Dioxide Level 27, Anion Gap 4L, Blood Urea Nitrogen 19H, Creatinine 0.9, Estimat Glomerular Filtration Rate > 60, Glucose Level 93, Calcium Level 8.1L, Phosphorus Level 3.7, Magnesium Level 2.1 , Total Bilirubin 0.3, Aspartate Amino Transf (AST/SGOT) 18, Alanine Aminotransferase (ALT/SGPT) 20, Alkaline Phosphatase 75, Total Protein 5.9L, Albumin 2.6L, Globulin 3.3, Albumin/Globulin Ratio 0.8L Height (Feet): 5 Height (Inches): 6.00 Weight (Pounds): 129 General Appearance: no apparent distress, alert Neurologic: depressed affect Meeta Quintana MD May 03, 2018 21:59
[2018-05-03] MEDS: Zolpidem 5mg tab ORAL PRN (23:11)
[2018-05-04] VITALS: BP 106/58
[2018-05-04 04:00] VITALS: BP 100/65
[2018-05-04] MEDS: LORazepam Inj 2mg/ml 1ml IV PRN ×2 (05:19→18:04)
[2018-05-04] MEDS: Piperacillin/Tazobactam 3.375 GM in D5W 110 ML IVPB SCH ×3 (05:19→22:32)
[2018-05-04] MEDS: Valproic Acid 500mg/10ml liquid NG SCH ×4 (05:19→22:33)
[2018-05-04 06:21] LABS: BASOPHILS % (AUTO) 0.8 % (0.0-2.0); EOSINOPHILS % (AUTO) 2.2 % (0.0-3.0); HEMATOCRIT 36.9 % (42.0-52.0); HEMOGLOBIN 11.9 G/DL (14.2-18.0); MEAN CORPUSCULAR VOLUME 92 FL (80-99); MONOCYTES % (AUTO) 9.7 % (1.0-10.0); NEUTROPHILS % (AUTO) 57.3 % (45.0-75.0); PLATELET COUNT 152 K/UL (150-450); RED BLOOD COUNT 4.03 M/UL (4.70-6.10); RED CELL DISTRIBUTION WIDTH 13.2 % (11.6-14.8); WHITE BLOOD COUNT 5.9 K/UL (4.8-10.8)
[2018-05-04 06:27] LABS: ANION GAP 6 mmol/L (5-15); BLOOD UREA NITROGEN 17 mg/dL (7-18); CALCIUM 8.7 MG/DL (8.5-10.1); CARBON DIOXIDE 29 MMOL/L (21-32); CHLORIDE 106 MMOL/L (98-107); CREATININE 0.9 MG/DL (0.55-1.30); SODIUM 141 MMOL/L (136-145)
[2018-05-04 08:15] VITALS: BP 126/90
[2018-05-04] MEDS: Theophylline ER 100mg ORAL SCH ×2 (08:29→22:33)
[2018-05-04] MEDS: OXcarbazepine 150mg tab ORAL SCH (08:29)
[2018-05-04 11:42] VITALS: BP 124/79
--- NOTE | 2018-05-04 13:22 | General Progress Note ---
Assessment/Plan Status: stable, progressing Assessment/Plan Encephalopathy due to [facility] [place] Schizoaffective d/o Ativan prn Risperdal 6mg po qhs Depakote 1000mg bid dc Topamax Subjective Date patient seen: May 04, 2018 Neurologic/Psychiatric: Reports: anxiety, depressed, emotional problems Allergies: Coded Allergies: No Known Allergies (Unverified , 02/13/18) Objective Last 24 Hour Vital Signs Date Time Temp Pulse Resp B/P (MAP) Pulse Ox O2 Delivery O2 Flow Rate FiO2 05/04/18 11:42 98.1 79 19 124/79 (94) 96 98.1 05/04/18 11:25 Room Air 21 05/04/18 11:25 Room Air 21 05/04/18 08:15 98.6 89 18 126/90 (102) 96 98.6 05/04/18 07:32 Room Air 05/04/18 07:31 81 20 95 Room Air 21 05/04/18 07:31 Room Air 21 05/04/18 04:00 97.2 68 18 100/65 (77) 94 97.2 05/04/18 03:00 Room Air 05/04/18 03:00 Room Air 05/04/18 00:00 97.0 72 20 106/58 (74) 95 97.0 05/03/18 23:36 Room Air 05/03/18 23:36 Room Air 05/03/18 21:00 Room Air 05/03/18 20:00 97.5 82 21 120/77 (91) 94 97.5 05/03/18 19:04 Room Air 05/03/18 19:04 Room Air 05/03/18 16:00 97.1 70 20 107/68 (81) 97 97.1 05/03/18 15:40 91 18 97 Room Air 21 05/03/18 15:40 91 18 97 Room Air 21 Intake and Output 05/03/18 05/04/18 19:00 07:00 Intake Total 912.5 ml 365.0 ml Balance 912.5 ml 365.0 ml Intake Oral 720 ml 200 ml IV Total 192.5 ml 165.0 ml # Voids 4 2 Laboratory Tests 05/04/18 05:45: White Blood Count 5.9, Red Blood Count 4.03L, Hemoglobin 11.9L, Hematocrit 36.9L , Mean Corpuscular Volume 92, Mean Corpuscular Hemoglobin 29.5, Mean Corpuscular Hemoglobin Concent 32.3, Red Cell Distribution Width 13.2, Platelet Count 152, Mean Platelet Volume 6.9, Neutrophils (%) (Auto) 57.3, Lymphocytes (% ) (Auto) 30.0, Monocytes (%) (Auto) 9.7, Eosinophils (%) (Auto) 2.2, Basophils ( %) (Auto) 0.8, Sodium Level 141, Potassium Level 4.0, Chloride Level 106, Carbon Dioxide Level 29, Anion Gap 6, Blood Urea Nitrogen 17, Creatinine 0.9, Estimat Glomerular Filtration Rate > 60, Glucose Level 121H, Calcium Level 8.7 Height (Feet): 5 Height (Inches): 6.00 Weight (Pounds): 129 General Appearance: no apparent distress, alert Neurologic: oriented x 3, responsive, depressed affect Meeta Quintana MD May 04, 2018 13:22
--- NOTE | 2018-05-04 13:24 | Pulmonology Progress Note ---
Assessment/Plan Problems: (1) Aspiration pneumonia (2) COPD (chronic obstructive pulmonary disease) (3) At high risk for aspiration (4) Psychosis (5) Seizure disorder Assessment/Plan swallow test reviewed continue abx respiratory treatment check electrolytes f/u by psych dvt prophylaxis Subjective ROS Limited/Unobtainable: No Constitutional: Reports: no symptoms HEENT: Repors: no symptoms Respiratory: Reports: no symptoms Allergies: Coded Allergies: No Known Allergies (Unverified , 02/13/18) Objective Last 24 Hour Vital Signs Date Time Temp Pulse Resp B/P (MAP) Pulse Ox O2 Delivery O2 Flow Rate FiO2 05/04/18 11:42 98.1 79 19 124/79 (94) 96 98.1 05/04/18 11:25 Room Air 21 05/04/18 11:25 Room Air 21 05/04/18 08:15 98.6 89 18 126/90 (102) 96 98.6 05/04/18 07:32 Room Air 05/04/18 07:31 81 20 95 Room Air 21 05/04/18 07:31 Room Air 21 05/04/18 04:00 97.2 68 18 100/65 (77) 94 97.2 05/04/18 03:00 Room Air 05/04/18 03:00 Room Air 05/04/18 00:00 97.0 72 20 106/58 (74) 95 97.0 05/03/18 23:36 Room Air 05/03/18 23:36 Room Air 05/03/18 21:00 Room Air 05/03/18 20:00 97.5 82 21 120/77 (91) 94 97.5 05/03/18 19:04 Room Air 05/03/18 19:04 Room Air 05/03/18 16:00 97.1 70 20 107/68 (81) 97 97.1 05/03/18 15:40 91 18 97 Room Air 21 05/03/18 15:40 91 18 97 Room Air 21 Intake and Output 05/03/18 05/04/18 19:00 07:00 Intake Total 912.5 ml 365.0 ml Balance 912.5 ml 365.0 ml Intake Oral 720 ml 200 ml IV Total 192.5 ml 165.0 ml # Voids 4 2 General Appearance: cachetic HEENT: normocephalic, atraumatic Respiratory/Chest: chest wall non-tender, normal breath sounds Cardiovascular: normal peripheral pulses, normal rate Abdomen: normal bowel sounds, no organomegaly Extremities: no cyanosis Skin: no rash Microbiology Date/Time Source Procedure Growth Status 05/02/18 16:00 Sputum Gram Stain - Final Complete 05/02/18 16:00 Sputum Sputum Culture - Final NORMAL UPPER RESPIRATORY CHRIS PRESENT Complete 05/01/18 17:26 Nasal Nares MRSA Culture - Final NO METHICILLIN RESISTANT STAPH AUREUS... Complete 05/01/18 17:26 Rectum VRE Culture - Final NO VANCOMYCIN RESISTANT ENTEROCOCCUS ... Complete 05/01/18 17:26 Rectum - Final NO CARBAPENEM-RESISTANT ENTEROBACTERI... Complete Laboratory Tests 05/04/18 05:45: White Blood Count 5.9, Red Blood Count 4.03L, Hemoglobin 11.9L, Hematocrit 36.9L , Mean Corpuscular Volume 92, Mean Corpuscular Hemoglobin 29.5, Mean Corpuscular Hemoglobin Concent 32.3, Red Cell Distribution Width 13.2, Platelet Count 152, Mean Platelet Volume 6.9, Neutrophils (%) (Auto) 57.3, Lymphocytes (% ) (Auto) 30.0, Monocytes (%) (Auto) 9.7, Eosinophils (%) (Auto) 2.2, Basophils ( %) (Auto) 0.8, Sodium Level 141, Potassium Level 4.0, Chloride Level 106, Carbon Dioxide Level 29, Anion Gap 6, Blood Urea Nitrogen 17, Creatinine 0.9, Estimat Glomerular Filtration Rate > 60, Glucose Level 121H, Calcium Level 8.7 Current Medications Medications (Trade) Dose Ordered Sig/Carmen Route PRN Reason Start Time Stop Time Status Last Admin Dose Admin Acetaminophen (Tylenol) 650 mg Q4H PRN ORAL fever 05/01/18 19:00 05/31/18 18:59 Al Hydroxide/Mg Hydroxide (Mylanta II) 30 ml Q6H PRN ORAL dyspepsia 05/01/18 19:00 05/31/18 18:59 Albuterol/ Ipratropium (Albuterol/ Ipratropium) 3 ml Q6H PRN HHN Shortness of Breath 05/02/18 11:30 05/07/18 11:29 Dextrose (Dextrose 50%) 25 ml PRN IV Hypoglycemia 9/17/18 19:15 05/31/18 19:14 Dextrose (Dextrose 50%) 50 ml PRN IV hypoglycemia 05/01/18 19:15 05/31/18 19:14 Famotidine (Pepcid) 20 mg DAILY ORAL 05/02/18 09:00 06/01/18 08:59 05/04/18 08:28 Gabapentin (Neurontin) 300 mg BID ORAL 05/02/18 09:00 06/01/18 08:59 05/04/18 08:29 Lorazepam (Ativan 2mg/ml 1ml) 0.5 mg Q4H PRN IV For Anxiety 05/01/18 19:00 05/08/18 18:59 05/04/18 05:19 Lorazepam (Ativan) 2 mg Q4H PRN ORAL Agitation 05/02/18 15:00 05/09/18 14:59 05/03/18 09:22 Morphine Sulfate (Morphine Sulfate) 1 mg Q4H PRN IVP For Pain 05/01/18 19:00 05/08/18 18:59 Ondansetron HCl (Zofran) 4 mg Q6H PRN IVP Nausea & Vomiting 05/01/18 19:00 05/31/18 18:59 Oxcarbazepine (Trileptal) 300 mg DAILY ORAL 05/02/18 09:00 06/01/18 08:59 05/04/18 08:29 Piperacillin Sod/ Tazobactam Sod 3.375 gm/Dextrose 110 ml @ 27.5 mls/hr EVERY 8 HOURS IVPB 05/02/18 14:00 05/07/18 13:59 05/04/18 05:19 Polyethylene Glycol (Miralax) 17 gm HSPRN PRN ORAL Constipation 05/01/18 19:00 05/31/18 18:59 Promethazine HCl/ Codeine (Phenergan with Codeine) 5 ml Q4H PRN ORAL For Cough 05/02/18 12:15 06/01/18 12:14 05/03/18 21:52 Risperidone (RisperDAL) 6 mg BEDTIME ORAL 05/01/18 21:00 05/31/18 20:59 05/03/18 20:14 Theophylline (Bharat-Dur) 100 mg EVERY 12 HOURS ORAL 05/02/18 21:00 06/01/18 20:59 05/04/18 08:29 Valproic Acid (Depakene) 500 mg Q6HR NG 05/03/18 12:00 06/02/18 11:59 05/04/18 11:54 Zolpidem Tartrate (Ambien) 5 mg HSPRN PRN ORAL Insomnia 05/01/18 19:00 05/08/18 18:59 05/03/18 23:11 Joana Morton MD May 04, 2018 13:24
--- NOTE | 2018-05-04 13:59 | GI Initial Consult Note ---
History of Present Illness General Date patient seen: May 04, 2018 Time patient seen: 14:08 Reason for Hospitalization: Behavioral Complaint Referring physician: THADDEUS Reason for Consultation: PEG EVALUATION Present Illness HPI 63-year-old male with history of dementia, psychosis, sent from snf by for increased agitation. Patient has a baseline of being alert and oriented to person only, so very difficult to obtain further history. GI consulted for PEG evaluation. ROS limited, patient with psychiatric history unable to obtain history. Pt seen, awake sitting on side of bed NAD, has verbal mumbles, no active s/sx of N/V/D. Per ST report via video swallow study , the patient had aspiration on all liquids expect pudding. No known history of endoscopy / colonoscopy. Home Meds Reported Medications Divalproex Sodium* (DEPAKOTE ER*) 500 Mg Tab.er.24h, 1000 MG ORAL EVERY 12 HOURS , TAB 02/21/18 Divalproex Sodium* (DEPAKOTE ER*) 500 Mg Tab.er.24h, 1000 MG ORAL EVERY 12 HOURS , TAB 02/21/18 Topiramate* (TOPAMAX*) 100 Mg Tablet, 100 MG ORAL TWICE A DAY, #60 TAB 0 Refills 02/21/18 Risperidone* (RISPERDAL*) 2 Mg Tablet, 6 MG ORAL BEDTIME, #30 TAB 0 Refills 02/21/18 Lorazepam* (ATIVAN*) 1 Mg Tablet, 1 MG ORAL EVERY 4 HOURS PRN for Agitation, TAB 02/21/18 Divalproex Sodium* (DEPAKOTE ER*) 500 Mg Tab.er.24h, 500 MG ORAL EVERY 12 HOURS , TAB 02/21/18 Divalproex Sodium* (DEPAKOTE*) 250 Mg Tablet.dr, 250 MG PO QID, TAB 02/14/18 Ascorbic Acid* (ASCORBIC ACID*) 500 Mg Tablet, 500 MG ORAL DAILY, #30 TAB 0 Refills 02/14/18 Multivitamins* (MULTIVITAMINS*) 1 Each Tablet, 1 TAB ORAL DAILY, TAB 0 Refills 02/14/18 Famotidine (FAMOTIDINE) 20 Mg Tablet, 20 MG ORAL DAILY, #30 TAB 0 Refills 02/14/18 Topiramate* (TOPAMAX*) 100 Mg Tablet, 100 MG ORAL TWICE A DAY, #60 TAB 0 Refills 02/14/18 Oxcarbazepine* (TRILEPTAL*) 600 Mg Tablet, 300 MG PO DAILY, TAB 02/14/18 Gabapentin* (GABAPENTIN*) 300 Mg Capsule, 300 MG ORAL BID, CAP 0 Refills 02/14/18 Ferrous Sulfate* (FERROUS SULFATE*) 325 Mg Tablet, 325 MG ORAL DAILY, #30 TAB 0 Refills 02/14/18 Med list reviewed/reconciled: Yes Allergies: Coded Allergies: No Known Allergies (Unverified , 02/13/18) Patient History Limited by: medical condition History Provided By: Medical Record PMH Narrative Limited by: medical condition Past Medical History: see triage record Reviewed Nursing Documentation: PMH: Agreed; PSxH: Agreed Nursing Documentation-PMH Hx Cardiac Problems: No Hx COPD: Yes - acute respiratory distress syndrome, COPD Hx Cancer: No Hx Gastrointestinal Problems: No Hx Neurological Problems: No Hx Seizures: Yes - epilepsy Hx Speech Problem: Yes Social History: Denies: smoking, alcohol use, drug use, other Review of Systems All Other Systems: negative except mentioned in HPI Physical Exam Vital Signs Date Time Temp Pulse Resp B/P (MAP) Pulse Ox O2 Delivery O2 Flow Rate FiO2 05/01/18 15:18 98.5 104 22 122/74 94 Room Air 98.4 05/02/18 15:13 21 Sp02 EP Interpretation: reviewed, normal Labs Laboratory Tests Test 05/04/18 05:45 White Blood Count 5.9 K/UL (4.8-10.8) Red Blood Count 4.03 M/UL (4.70-6.10) L Hemoglobin 11.9 G/DL (14.2-18.0) L Hematocrit 36.9 % (42.0-52.0) L Mean Corpuscular Volume 92 FL (80-99) Mean Corpuscular Hemoglobin 29.5 PG (27.0-31.0) Mean Corpuscular Hemoglobin Concent 32.3 G/DL (32.0-36.0) Red Cell Distribution Width 13.2 % (11.6-14.8) Platelet Count 152 K/UL (150-450) Mean Platelet Volume 6.9 FL (6.5-10.1) Neutrophils (%) (Auto) 57.3 % (45.0-75.0) Lymphocytes (%) (Auto) 30.0 % (20.0-45.0) Monocytes (%) (Auto) 9.7 % (1.0-10.0) Eosinophils (%) (Auto) 2.2 % (0.0-3.0) Basophils (%) (Auto) 0.8 % (0.0-2.0) Sodium Level 141 MMOL/L (136-145) Potassium Level 4.0 MMOL/L (3.5-5.1) Chloride Level 106 MMOL/L (98-107) Carbon Dioxide Level 29 MMOL/L (21-32) Anion Gap 6 mmol/L (5-15) Blood Urea Nitrogen 17 mg/dL (7-18) Creatinine 0.9 MG/DL (0.55-1.30) Estimat Glomerular Filtration Rate > 60 mL/min (>60) Glucose Level 121 MG/DL (74-106) H Calcium Level 8.7 MG/DL (8.5-10.1) General Appearance: well appearing, no apparent distress, alert Head: normocephalic EENT: PERRL/EOMI, normal ENT inspection Neck: supple Respiratory: normal breath sounds, no respiratory distress Cardiovascular: normal rate Gastrointestinal: normal inspection, non tender, soft, normal bowel sounds, non -distended Rectal: deferred Genitourinary: deferred Musculoskeletal: normal inspection, back normal Neurologic: normal inspection, alert, responsive Skin: normal inspection, normal color, no rash, warm/dry, palpation normal, well hydrated Lymphatic: normal inspection, no adenopathy Current Medications Current Medications Medications (Trade) Dose Ordered Sig/Carmen Route PRN Reason Start Time Stop Time Status Last Admin Dose Admin Acetaminophen (Tylenol) 650 mg Q4H PRN ORAL fever 05/01/18 19:00 05/31/18 18:59 Al Hydroxide/Mg Hydroxide (Mylanta II) 30 ml Q6H PRN ORAL dyspepsia 05/01/18 19:00 05/31/18 18:59 Albuterol/ Ipratropium (Albuterol/ Ipratropium) 3 ml Q6H PRN HHN Shortness of Breath 05/02/18 11:30 05/07/18 11:29 Dextrose (Dextrose 50%) 25 ml PRN IV Hypoglycemia 05/01/18 19:15 05/31/18 19:14 Dextrose (Dextrose 50%) 50 ml PRN IV hypoglycemia 05/01/18 19:15 05/31/18 19:14 Famotidine (Pepcid) 20 mg DAILY ORAL 05/02/18 09:00 06/01/18 08:59 05/04/18 08:28 Gabapentin (Neurontin) 300 mg BID ORAL 05/02/18 09:00 06/01/18 08:59 05/04/18 08:29 Lorazepam (Ativan 2mg/ml 1ml) 0.5 mg Q4H PRN IV For Anxiety 05/01/18 19:00 05/08/18 18:59 05/04/18 05:19 Lorazepam (Ativan) 2 mg Q4H PRN ORAL Agitation 05/02/18 15:00 05/09/18 14:59 05/03/18 09:22 Morphine Sulfate (Morphine Sulfate) 1 mg Q4H PRN IVP For Pain 05/01/18 19:00 05/08/18 18:59 Ondansetron HCl (Zofran) 4 mg Q6H PRN IVP Nausea & Vomiting 05/01/18 19:00 05/31/18 18:59 Oxcarbazepine (Trileptal) 300 mg DAILY ORAL 05/02/18 09:00 06/01/18 08:59 05/04/18 08:29 Piperacillin Sod/ Tazobactam Sod 3.375 gm/Dextrose 110 ml @ 27.5 mls/hr EVERY 8 HOURS IVPB 05/02/18 14:00 05/07/18 13:59 05/04/18 05:19 Polyethylene Glycol (Miralax) 17 gm HSPRN PRN ORAL Constipation 05/01/18 19:00 05/31/18 18:59 Promethazine HCl/ Codeine (Phenergan with Codeine) 5 ml Q4H PRN ORAL For Cough 05/02/18 12:15 06/01/18 12:14 05/03/18 21:52 Risperidone (RisperDAL) 6 mg BEDTIME ORAL 05/01/18 21:00 05/31/18 20:59 05/03/18 20:14 Theophylline (Bharat-Dur) 100 mg EVERY 12 HOURS ORAL 05/02/18 21:00 06/01/18 20:59 05/04/18 08:29 Valproic Acid (Depakene) 500 mg Q6HR NG 05/03/18 12:00 06/02/18 11:59 05/04/18 11:54 Zolpidem Tartrate (Ambien) 5 mg HSPRN PRN ORAL Insomnia 05/01/18 19:00 05/08/18 18:59 05/03/18 23:11 GI: Plan Problems: (1) Malnutrition (2) Anemia (3) Altered mental status (4) At high risk for aspiration Plan we do not recommend GT placement given patient psychiatric history resume diet per ST supportive care fu psychiatric recs ppi prn transfusions outpatient GI procedures Discussed with Dr. Anderson. Thank you for this patient referral, we will follow. The patient was seen and examined at bedside and all new and available data was reviewed in the patients chart. I agree with the above findings, impression and plan. (Patient seen earlier today. Signature stamp does not reflect patient encounter time.). - MD Chey Camarillo Anh-Karthik DIVE SUPERINTENDENT May 04, 2018 13:59
--- NOTE | 2018-05-04 15:17 | Diagnostic Imaging Report ---
Indications: Dysphagia Technique: Patient ingested multiple substances under the supervision of speech pathology. Video fluoroscopic recording performed. Total fluoroscopy time and 36 seconds. Total dose area product 0.88368 mGycm2. Total number fluoroscopic runs-7 Comparison: none Findings: Gross aspiration of thin liquid barium is demonstrated, results in coughing. There is also aspiration of nectar thick liquid barium and honey thick liquid barium. Ingestion of barium puree does not result in any aspiration. Impression: Positive for aspiration of thin, honey thick, nectar thick liquid barium Please refer to speech pathology report for more detailed analysis
--- NOTE | 2018-05-04 15:26 | General Progress Note ---
Assessment/Plan Problem List: (1) Malnutrition ICD Codes: E46 - Unspecified protein-calorie malnutrition SNOMED: 78379813 (2) UTI (urinary tract infection) ICD Codes: N39.0 - Urinary tract infection, site not specified SNOMED: 75446046 (3) Anemia ICD Codes: D64.9 - Anemia, unspecified SNOMED: 869937486 (4) COPD (chronic obstructive pulmonary disease) ICD Codes: J44.9 - Chronic obstructive pulmonary disease, unspecified SNOMED: 09715811 (5) Psychosis ICD Codes: F29 - Unspecified psychosis not due to a substance or known physiological condition SNOMED: 81284216 (6) Seizure disorder ICD Codes: G40.909 - Epilepsy, unspecified, not intractable, without status epilepticus SNOMED: 087588156 (7) Altered mental status ICD Codes: R41.82 - Altered mental status, unspecified SNOMED: 198899415 Status: stable, progressing Assessment/Plan ot pt diet ebx seizure control neuro psyc f/u cbc bmp am Subjective Constitutional: Reports: weakness Allergies: Coded Allergies: No Known Allergies (Unverified , 02/13/18) All Systems: reviewed and negative except above Subjective confused in bed Objective Last 24 Hour Vital Signs Date Time Temp Pulse Resp B/P (MAP) Pulse Ox O2 Delivery O2 Flow Rate FiO2 05/04/18 11:42 98.1 79 19 124/79 (94) 96 98.1 05/04/18 11:25 Room Air 21 05/04/18 11:25 Room Air 21 05/04/18 08:15 98.6 89 18 126/90 (102) 96 98.6 05/04/18 07:32 Room Air 05/04/18 07:31 81 20 95 Room Air 21 05/04/18 07:31 Room Air 21 05/04/18 04:00 97.2 68 18 100/65 (77) 94 97.2 05/04/18 03:00 Room Air 05/04/18 03:00 Room Air 05/04/18 00:00 97.0 72 20 106/58 (74) 95 97.0 05/03/18 23:36 Room Air 05/03/18 23:36 Room Air 05/03/18 21:00 Room Air 05/03/18 20:00 97.5 82 21 120/77 (91) 94 97.5 05/03/18 19:04 Room Air 05/03/18 19:04 Room Air 05/03/18 16:00 97.1 70 20 107/68 (81) 97 97.1 05/03/18 15:40 91 18 97 Room Air 21 05/03/18 15:40 91 18 97 Room Air 21 Intake and Output 05/03/18 05/04/18 19:00 07:00 Intake Total 912.5 ml 365.0 ml Balance 912.5 ml 365.0 ml Intake Oral 720 ml 200 ml IV Total 192.5 ml 165.0 ml # Voids 4 2 Laboratory Tests 05/04/18 05:45: White Blood Count 5.9, Red Blood Count 4.03L, Hemoglobin 11.9L, Hematocrit 36.9L , Mean Corpuscular Volume 92, Mean Corpuscular Hemoglobin 29.5, Mean Corpuscular Hemoglobin Concent 32.3, Red Cell Distribution Width 13.2, Platelet Count 152, Mean Platelet Volume 6.9, Neutrophils (%) (Auto) 57.3, Lymphocytes (% ) (Auto) 30.0, Monocytes (%) (Auto) 9.7, Eosinophils (%) (Auto) 2.2, Basophils ( %) (Auto) 0.8, Sodium Level 141, Potassium Level 4.0, Chloride Level 106, Carbon Dioxide Level 29, Anion Gap 6, Blood Urea Nitrogen 17, Creatinine 0.9, Estimat Glomerular Filtration Rate > 60, Glucose Level 121H, Calcium Level 8.7 Height (Feet): 5 Height (Inches): 6.00 Weight (Pounds): 129 General Appearance: lethargic EENT: normal ENT inspection Neck: normal alignment Cardiovascular: normal peripheral pulses, normal rate, regular rhythm Respiratory/Chest: chest wall non-tender, lungs clear, normal breath sounds Abdomen: normal bowel sounds, non tender, soft Extremities: normal inspection Edema: no edema noted Arm (L), no edema noted Arm (R), no edema noted Leg (L), no edema noted Leg (R), no edema noted Pedal (L), no edema noted Pedal (R), no edema noted Generalized Neurologic: motor weakness Skin: normal pigmentation, warm/dry Jose Treadwell DO May 04, 2018 15:26
--- NOTE | 2018-05-04 15:50 | General Progress Note ---
Assessment/Plan Status: stable Status Narrative acute change in condition dysphagia possible aspiration pneumonia dysarthria HTN debility Assessment/Plan speech evaluation video swallow evaluation monitor symptoms GI consultation supportive care see orders; Subjective Date patient seen: May 04, 2018 Time patient seen: 15:47 Constitutional: Reports: weakness HEENT: Reports: no symptoms Cardiovascular: Reports: no symptoms Respiratory: Reports: no symptoms Gastrointestinal/Abdominal: Reports: no symptoms Genitourinary: Reports: no symptoms Neurologic/Psychiatric: Reports: no symptoms Endocrine: Reports: no symptoms Hematologic/Lymphatic: Reports: no symptoms Allergies: Coded Allergies: No Known Allergies (Unverified , 02/13/18) Subjective patient reports that he is hungry, patient is seen after i was informed today that patient was indeed changed to my service. Objective Last 24 Hour Vital Signs Date Time Temp Pulse Resp B/P (MAP) Pulse Ox O2 Delivery O2 Flow Rate FiO2 05/04/18 11:42 98.1 79 19 124/79 (94) 96 98.1 05/04/18 11:25 Room Air 21 05/04/18 11:25 Room Air 21 05/04/18 08:15 98.6 89 18 126/90 (102) 96 98.6 05/04/18 07:32 Room Air 05/04/18 07:31 81 20 95 Room Air 21 05/04/18 07:31 Room Air 21 05/04/18 04:00 97.2 68 18 100/65 (77) 94 97.2 05/04/18 03:00 Room Air 05/04/18 03:00 Room Air 05/04/18 00:00 97.0 72 20 106/58 (74) 95 97.0 05/03/18 23:36 Room Air 05/03/18 23:36 Room Air 05/03/18 21:00 Room Air 05/03/18 20:00 97.5 82 21 120/77 (91) 94 97.5 05/03/18 19:04 Room Air 05/03/18 19:04 Room Air 05/03/18 16:00 97.1 70 20 107/68 (81) 97 97.1 Intake and Output 05/03/18 05/04/18 19:00 07:00 Intake Total 912.5 ml 365.0 ml Balance 912.5 ml 365.0 ml Intake Oral 720 ml 200 ml IV Total 192.5 ml 165.0 ml # Voids 4 2 Laboratory Tests 05/04/18 05:45: White Blood Count 5.9, Red Blood Count 4.03L, Hemoglobin 11.9L, Hematocrit 36.9L , Mean Corpuscular Volume 92, Mean Corpuscular Hemoglobin 29.5, Mean Corpuscular Hemoglobin Concent 32.3, Red Cell Distribution Width 13.2, Platelet Count 152, Mean Platelet Volume 6.9, Neutrophils (%) (Auto) 57.3, Lymphocytes (% ) (Auto) 30.0, Monocytes (%) (Auto) 9.7, Eosinophils (%) (Auto) 2.2, Basophils ( %) (Auto) 0.8, Sodium Level 141, Potassium Level 4.0, Chloride Level 106, Carbon Dioxide Level 29, Anion Gap 6, Blood Urea Nitrogen 17, Creatinine 0.9, Estimat Glomerular Filtration Rate > 60, Glucose Level 121H, Calcium Level 8.7 Height (Feet): 5 Height (Inches): 6.00 Weight (Pounds): 129 General Appearance: no apparent distress EENT: PERRL/EOMI Neck: non-tender Cardiovascular: normal rate Respiratory/Chest: normal breath sounds Abdomen: soft Pelvis: no active bleeding Genitourinary/Rectal: other Extremities: non-tender Edema: no edema noted Arm (L), no edema noted Arm (R), no edema noted Leg (L), no edema noted Leg (R), no edema noted Pedal (L), no edema noted Pedal (R), no edema noted 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 May 04, 2018 15:50
[2018-05-04 16:00] VITALS: BP 108/77
[2018-05-04 20:00] VITALS: BP 125/80
[2018-05-05] VITALS: BP 119/69
[2018-05-05] MEDS: LORazepam Inj 2mg/ml 1ml IV PRN ×2 (03:37→08:44)
[2018-05-05 03:57] VITALS: BP 100/70
[2018-05-05] MEDS: Piperacillin/Tazobactam 3.375 GM in D5W 110 ML IVPB SCH ×3 (04:45→20:19)
[2018-05-05] MEDS: Valproic Acid 500mg/10ml liquid NG SCH ×4 (06:12→23:40)
[2018-05-05 06:32] LABS: BASOPHILS % (AUTO) 1.1 % (0.0-2.0); EOSINOPHILS % (AUTO) 1.6 % (0.0-3.0); HEMATOCRIT 38.1 % (42.0-52.0); HEMOGLOBIN 12.4 G/DL (14.2-18.0); LYMPHOCYTES % (AUTO) 23.8 % (20.0-45.0); MEAN CORPUSCULAR VOLUME 91 FL (80-99); MONOCYTES % (AUTO) 9.4 % (1.0-10.0); NEUTROPHILS % (AUTO) 64.1 % (45.0-75.0); PLATELET COUNT 160 K/UL (150-450); RED BLOOD COUNT 4.18 M/UL (4.70-6.10); RED CELL DISTRIBUTION WIDTH 12.9 % (11.6-14.8); WHITE BLOOD COUNT 5.8 K/UL (4.8-10.8)
[2018-05-05 06:51] LABS: ANION GAP 6 mmol/L (5-15); BLOOD UREA NITROGEN 15 mg/dL (7-18); CALCIUM 8.6 MG/DL (8.5-10.1); CARBON DIOXIDE 29 MMOL/L (21-32); CHLORIDE 105 MMOL/L (98-107); CREATININE 0.9 MG/DL (0.55-1.30); POTASSIUM 4.2 MMOL/L (3.5-5.1); SODIUM 140 MMOL/L (136-145)
[2018-05-05 08:00] VITALS: BP 99/56
[2018-05-05] MEDS: Theophylline ER 100mg ORAL SCH ×2 (08:35→20:20)
[2018-05-05] MEDS: OXcarbazepine 150mg tab ORAL SCH (08:36)
--- NOTE | 2018-05-05 10:55 | GI Progress Note ---
Assessment/Plan Problems: (1) UTI (urinary tract infection) ICD Codes: N39.0 - Urinary tract infection, site not specified SNOMED: 88884161 (2) Malnutrition ICD Codes: E46 - Unspecified protein-calorie malnutrition SNOMED: 51891437 (3) Anemia ICD Codes: D64.9 - Anemia, unspecified SNOMED: 884534523 (4) Altered mental status ICD Codes: R41.82 - Altered mental status, unspecified SNOMED: 525713975 (5) At high risk for aspiration ICD Codes: Z91.89 - Other specified personal risk factors, not elsewhere classified SNOMED: 819998973 (6) Aspiration pneumonia ICD Codes: J69.0 - Pneumonitis due to inhalation of food and vomit SNOMED: 625584608 (7) Seizure disorder ICD Codes: G40.909 - Epilepsy, unspecified, not intractable, without status epilepticus SNOMED: 849426123 (8) Psychosis ICD Codes: F29 - Unspecified psychosis not due to a substance or known physiological condition SNOMED: 55690833 Status: stable Status Narrative Discussed with Dr. Anderson. Assessment/Plan we do not recommend GT placement given patient psychiatric history resume diet per ST, on honey thick supportive care fu psychiatric recs ppi prn transfusions outpatient GI procedures The patient was seen and examined at bedside and all new and available data was reviewed in the patients chart. I agree with the above findings, impression and plan. (Patient seen earlier today. Signature stamp does not reflect patient encounter time.). - Garcia Anderson MD Subjective Subjective limited Objective Last 24 Hour Vital Signs Date Time Temp Pulse Resp B/P (MAP) Pulse Ox O2 Delivery O2 Flow Rate FiO2 05/05/18 08:00 97.4 92 19 99/56 (70) 97 97.4 05/05/18 07:34 Room Air 05/05/18 07:01 98 Room Air 21 05/05/18 03:57 97.3 70 20 100/70 (80) 91 97.3 05/05/18 00:00 97.6 74 20 119/69 (86) 93 97.6 05/04/18 21:00 Room Air 05/04/18 20:28 97 Room Air 05/04/18 20:00 97.9 83 20 125/80 (95) 98 97.9 05/04/18 17:35 Room Air 21 05/04/18 17:34 Room Air 21 05/04/18 16:00 98.1 77 21 108/77 (87) 96 98.1 05/04/18 11:42 98.1 79 19 124/79 (94) 96 98.1 05/04/18 11:25 Room Air 21 05/04/18 11:25 Room Air 21 Intake and Output 05/04/18 05/05/18 19:00 07:00 Intake Total 165.0 ml 137.5 ml Output Total 3 ml Balance 162.0 ml 137.5 ml IV Total 165.0 ml 137.5 ml Output Urine Total 3 ml # Voids 2 Laboratory Tests Test 05/05/18 05:35 White Blood Count 5.8 K/UL (4.8-10.8) Red Blood Count 4.18 M/UL (4.70-6.10) L Hemoglobin 12.4 G/DL (14.2-18.0) L Hematocrit 38.1 % (42.0-52.0) L Mean Corpuscular Volume 91 FL (80-99) Mean Corpuscular Hemoglobin 29.6 PG (27.0-31.0) Mean Corpuscular Hemoglobin Concent 32.5 G/DL (32.0-36.0) Red Cell Distribution Width 12.9 % (11.6-14.8) Platelet Count 160 K/UL (150-450) Mean Platelet Volume 6.7 FL (6.5-10.1) Neutrophils (%) (Auto) 64.1 % (45.0-75.0) Lymphocytes (%) (Auto) 23.8 % (20.0-45.0) Monocytes (%) (Auto) 9.4 % (1.0-10.0) Eosinophils (%) (Auto) 1.6 % (0.0-3.0) Basophils (%) (Auto) 1.1 % (0.0-2.0) Sodium Level 140 MMOL/L (136-145) Potassium Level 4.2 MMOL/L (3.5-5.1) Chloride Level 105 MMOL/L (98-107) Carbon Dioxide Level 29 MMOL/L (21-32) Anion Gap 6 mmol/L (5-15) Blood Urea Nitrogen 15 mg/dL (7-18) Creatinine 0.9 MG/DL (0.55-1.30) Estimat Glomerular Filtration Rate > 60 mL/min (>60) Glucose Level 94 MG/DL (74-106) Calcium Level 8.6 MG/DL (8.5-10.1) Height (Feet): 5 Height (Inches): 6.00 Weight (Pounds): 129 General Appearance: WD/WN, no apparent distress, alert, other - garbled speech Cardiovascular: normal rate Respiratory/Chest: normal breath sounds, no respiratory distress Abdominal Exam: normal bowel sounds, non tender, soft Extremities: normal range of motion, non-tender Renée Guerrier NP May 05, 2018 10:55
[2018-05-05 11:56] VITALS: BP 112/75
--- NOTE | 2018-05-05 13:24 | Pulmonology Progress Note ---
Assessment/Plan Problems: (1) Aspiration pneumonia (2) COPD (chronic obstructive pulmonary disease) (3) At high risk for aspiration (4) Psychosis (5) Seizure disorder Assessment/Plan swallow test reviewed FOR QUALITY OF LIFE, CONTINUE ORAL DIET AND ADD HONEY THICK LIQUIDS ON THE DIET AT TSP LEVEL WITH 1ON1 ASSIST.CONSIDER TO CHANGE TO PUDDING-THICK LIQUIDS IF NEEDED. continue abx respiratory treatment check electrolytes f/u by psych dvt prophylaxis Subjective ROS Limited/Unobtainable: No Constitutional: Reports: no symptoms HEENT: Repors: no symptoms Respiratory: Reports: no symptoms Allergies: Coded Allergies: No Known Allergies (Unverified , 02/13/18) Objective Last 24 Hour Vital Signs Date Time Temp Pulse Resp B/P (MAP) Pulse Ox O2 Delivery O2 Flow Rate FiO2 05/05/18 11:56 98.1 89 18 112/75 (87) 95 98.1 05/05/18 08:00 97.4 92 19 99/56 (70) 97 97.4 05/05/18 07:34 Room Air 05/05/18 07:01 98 Room Air 21 05/05/18 03:57 97.3 70 20 100/70 (80) 91 97.3 05/05/18 00:00 97.6 74 20 119/69 (86) 93 97.6 05/04/18 21:00 Room Air 05/04/18 20:28 97 Room Air 05/04/18 20:00 97.9 83 20 125/80 (95) 98 97.9 05/04/18 17:35 Room Air 21 05/04/18 17:34 Room Air 21 05/04/18 16:00 98.1 77 21 108/77 (87) 96 98.1 Intake and Output 05/04/18 05/05/18 19:00 07:00 Intake Total 165.0 ml 137.5 ml Output Total 3 ml Balance 162.0 ml 137.5 ml IV Total 165.0 ml 137.5 ml Output Urine Total 3 ml # Voids 2 General Appearance: WD/WN HEENT: normocephalic, anicteric Respiratory/Chest: chest wall non-tender, lungs clear Cardiovascular: normal peripheral pulses, normal rate Extremities: no cyanosis Skin: no rash Neurologic/Psychiatric: no motor/sensory deficits Microbiology Date/Time Source Procedure Growth Status 05/02/18 16:00 Sputum Gram Stain - Final Complete 05/02/18 16:00 Sputum Sputum Culture - Final NORMAL UPPER RESPIRATORY CHRIS PRESENT Complete Laboratory Tests 05/05/18 05:35: White Blood Count 5.8, Red Blood Count 4.18L, Hemoglobin 12.4L, Hematocrit 38.1L , Mean Corpuscular Volume 91, Mean Corpuscular Hemoglobin 29.6, Mean Corpuscular Hemoglobin Concent 32.5, Red Cell Distribution Width 12.9, Platelet Count 160, Mean Platelet Volume 6.7, Neutrophils (%) (Auto) 64.1, Lymphocytes (% ) (Auto) 23.8, Monocytes (%) (Auto) 9.4, Eosinophils (%) (Auto) 1.6, Basophils ( %) (Auto) 1.1, Sodium Level 140, Potassium Level 4.2, Chloride Level 105, Carbon Dioxide Level 29, Anion Gap 6, Blood Urea Nitrogen 15, Creatinine 0.9, Estimat Glomerular Filtration Rate > 60, Glucose Level 94, Calcium Level 8.6 Current Medications Medications (Trade) Dose Ordered Sig/Carmen Route PRN Reason Start Time Stop Time Status Last Admin Dose Admin Acetaminophen (Tylenol) 650 mg Q4H PRN ORAL fever 05/01/18 19:00 05/31/18 18:59 Al Hydroxide/Mg Hydroxide (Mylanta II) 30 ml Q6H PRN ORAL dyspepsia 05/01/18 19:00 05/31/18 18:59 Albuterol/ Ipratropium (Albuterol/ Ipratropium) 3 ml Q6H PRN HHN Shortness of Breath 05/02/18 11:30 05/07/18 11:29 Dextrose (Dextrose 50%) 25 ml PRN IV Hypoglycemia 05/01/18 19:15 05/31/18 19:14 Dextrose (Dextrose 50%) 50 ml PRN IV hypoglycemia 05/01/18 19:15 05/31/18 19:14 Famotidine (Pepcid) 20 mg DAILY ORAL 05/02/18 09:00 06/01/18 08:59 05/05/18 08:35 Gabapentin (Neurontin) 300 mg BID ORAL 05/02/18 09:00 06/01/18 08:59 05/05/18 08:35 Lorazepam (Ativan 2mg/ml 1ml) 0.5 mg Q4H PRN IV For Anxiety 05/01/18 19:00 05/08/18 18:59 05/05/18 08:44 Lorazepam (Ativan) 2 mg Q4H PRN ORAL Agitation 05/02/18 15:00 05/09/18 14:59 05/03/18 09:22 Morphine Sulfate (Morphine Sulfate) 1 mg Q4H PRN IVP For Pain 05/01/18 19:00 05/08/18 18:59 Ondansetron HCl (Zofran) 4 mg Q6H PRN IVP Nausea & Vomiting 05/01/18 19:00 05/31/18 18:59 Oxcarbazepine (Trileptal) 300 mg DAILY ORAL 05/02/18 09:00 06/01/18 08:59 05/05/18 08:36 Piperacillin Sod/ Tazobactam Sod 3.375 gm/Dextrose 110 ml @ 27.5 mls/hr EVERY 8 HOURS IVPB 05/02/18 14:00 05/07/18 13:59 05/05/18 04:45 Polyethylene Glycol (Miralax) 17 gm HSPRN PRN ORAL Constipation 05/01/18 19:00 05/31/18 18:59 Promethazine HCl/ Codeine (Phenergan with Codeine) 5 ml Q4H PRN ORAL For Cough 05/02/18 12:15 06/01/18 12:14 05/03/18 21:52 Risperidone (RisperDAL) 6 mg BEDTIME ORAL 05/01/18 21:00 05/31/18 20:59 05/04/18 22:33 Theophylline (Bharat-Dur) 100 mg EVERY 12 HOURS ORAL 05/02/18 21:00 06/01/18 20:59 05/05/18 08:35 Valproic Acid (Depakene) 500 mg Q6HR NG 05/03/18 12:00 06/02/18 11:59 05/05/18 11:43 Zolpidem Tartrate (Ambien) 5 mg HSPRN PRN ORAL Insomnia 05/01/18 19:00 05/08/18 18:59 05/03/18 23:11 Joana Morton MD May 05, 2018 13:24
--- NOTE | 2018-05-05 13:40 | General Progress Note ---
Assessment/Plan Assessment/Plan [place] [facility] [place]izoaffective d/o Ativan prn Risperdal 6mg po qhs Depakote 1000mg bid dc Topamax Subjective Date patient seen: May 05, 2018 Neurologic/Psychiatric: Reports: anxiety, depressed Allergies: Coded Allergies: No Known Allergies (Unverified , 02/13/18) Objective Last 24 Hour Vital Signs Date Time Temp Pulse Resp B/P (MAP) Pulse Ox O2 Delivery O2 Flow Rate FiO2 05/05/18 11:56 98.1 89 18 112/75 (87) 95 98.1 05/05/18 08:00 97.4 92 19 99/56 (70) 97 97.4 05/05/18 07:34 Room Air 05/05/18 07:01 98 Room Air 21 05/05/18 03:57 97.3 70 20 100/70 (80) 91 97.3 05/05/18 00:00 97.6 74 20 119/69 (86) 93 97.6 05/04/18 21:00 Room Air 05/04/18 20:28 97 Room Air 05/04/18 20:00 97.9 83 20 125/80 (95) 98 97.9 05/04/18 17:35 Room Air 21 05/04/18 17:34 Room Air 21 05/04/18 16:00 98.1 77 21 108/77 (87) 96 98.1 Intake and Output 05/04/18 05/05/18 19:00 07:00 Intake Total 165.0 ml 137.5 ml Output Total 3 ml Balance 162.0 ml 137.5 ml IV Total 165.0 ml 137.5 ml Output Urine Total 3 ml # Voids 2 Laboratory Tests 05/05/18 05:35: White Blood Count 5.8, Red Blood Count 4.18L, Hemoglobin 12.4L, Hematocrit 38.1L , Mean Corpuscular Volume 91, Mean Corpuscular Hemoglobin 29.6, Mean Corpuscular Hemoglobin Concent 32.5, Red Cell Distribution Width 12.9, Platelet Count 160, Mean Platelet Volume 6.7, Neutrophils (%) (Auto) 64.1, Lymphocytes (% ) (Auto) 23.8, Monocytes (%) (Auto) 9.4, Eosinophils (%) (Auto) 1.6, Basophils ( %) (Auto) 1.1, Sodium Level 140, Potassium Level 4.2, Chloride Level 105, Carbon Dioxide Level 29, Anion Gap 6, Blood Urea Nitrogen 15, Creatinine 0.9, Estimat Glomerular Filtration Rate > 60, Glucose Level 94, Calcium Level 8.6 Height (Feet): 5 Height (Inches): 6.00 Weight (Pounds): 129 General Appearance: no apparent distress, alert Neurologic: oriented x 3, responsive Meeta Quintana MD May 05, 2018 13:40
--- NOTE | 2018-05-05 14:17 | General Progress Note ---
Assessment/Plan Problem List: (1) Malnutrition ICD Codes: E46 - Unspecified protein-calorie malnutrition SNOMED: 40262471 (2) UTI (urinary tract infection) ICD Codes: N39.0 - Urinary tract infection, site not specified SNOMED: 74030270 (3) Anemia ICD Codes: D64.9 - Anemia, unspecified SNOMED: 745146230 (4) COPD (chronic obstructive pulmonary disease) ICD Codes: J44.9 - Chronic obstructive pulmonary disease, unspecified SNOMED: 51983116 (5) Psychosis ICD Codes: F29 - Unspecified psychosis not due to a substance or known physiological condition SNOMED: 02917505 (6) Seizure disorder ICD Codes: G40.909 - Epilepsy, unspecified, not intractable, without status epilepticus SNOMED: 818819854 (7) Altered mental status ICD Codes: R41.82 - Altered mental status, unspecified SNOMED: 891808316 Status: stable, progressing Assessment/Plan ot pt diet abx seizure control neuro psyc f/u cbc bmp am dc plan Subjective Constitutional: Reports: weakness Allergies: Coded Allergies: No Known Allergies (Unverified , 02/13/18) All Systems: reviewed and negative except above Subjective confused in bed Objective Last 24 Hour Vital Signs Date Time Temp Pulse Resp B/P (MAP) Pulse Ox O2 Delivery O2 Flow Rate FiO2 05/05/18 11:56 98.1 89 18 112/75 (87) 95 98.1 05/05/18 08:00 97.4 92 19 99/56 (70) 97 97.4 05/05/18 07:34 Room Air 05/05/18 07:01 98 Room Air 21 05/05/18 03:57 97.3 70 20 100/70 (80) 91 97.3 05/05/18 00:00 97.6 74 20 119/69 (86) 93 97.6 05/04/18 21:00 Room Air 05/04/18 20:28 97 Room Air 05/04/18 20:00 97.9 83 20 125/80 (95) 98 97.9 05/04/18 17:35 Room Air 21 05/04/18 17:34 Room Air 21 05/04/18 16:00 98.1 77 21 108/77 (87) 96 98.1 Intake and Output 05/04/18 05/05/18 19:00 07:00 Intake Total 165.0 ml 137.5 ml Output Total 3 ml Balance 162.0 ml 137.5 ml IV Total 165.0 ml 137.5 ml Output Urine Total 3 ml # Voids 2 Laboratory Tests 05/05/18 05:35: White Blood Count 5.8, Red Blood Count 4.18L, Hemoglobin 12.4L, Hematocrit 38.1L , Mean Corpuscular Volume 91, Mean Corpuscular Hemoglobin 29.6, Mean Corpuscular Hemoglobin Concent 32.5, Red Cell Distribution Width 12.9, Platelet Count 160, Mean Platelet Volume 6.7, Neutrophils (%) (Auto) 64.1, Lymphocytes (% ) (Auto) 23.8, Monocytes (%) (Auto) 9.4, Eosinophils (%) (Auto) 1.6, Basophils ( %) (Auto) 1.1, Sodium Level 140, Potassium Level 4.2, Chloride Level 105, Carbon Dioxide Level 29, Anion Gap 6, Blood Urea Nitrogen 15, Creatinine 0.9, Estimat Glomerular Filtration Rate > 60, Glucose Level 94, Calcium Level 8.6 Height (Feet): 5 Height (Inches): 6.00 Weight (Pounds): 129 General Appearance: lethargic EENT: normal ENT inspection Neck: normal alignment Cardiovascular: normal peripheral pulses, normal rate, regular rhythm Respiratory/Chest: chest wall non-tender, lungs clear, normal breath sounds Abdomen: normal bowel sounds, non tender, soft Extremities: normal inspection Edema: no edema noted Arm (L), no edema noted Arm (R), no edema noted Leg (L), no edema noted Leg (R), no edema noted Pedal (L), no edema noted Pedal (R), no edema noted Generalized Neurologic: motor weakness Skin: normal pigmentation, warm/dry Jose Treadwell DO May 05, 2018 14:17
[2018-05-05 16:00] VITALS: BP 118/79
[2018-05-05 20:00] VITALS: BP 120/77
[2018-05-05] MEDS: Zolpidem 5mg tab ORAL PRN (20:20)
--- NOTE | 2018-05-05 22:59 | General Progress Note ---
Assessment/Plan Assessment/Plan dysphagia encephalopathy HTN possible psychosis GI evaluation; video swallow evaluation completed; monitor symptoms; pt seems to be able to eat GI consultation appreciated; supportive care no family available; see orders; Subjective Date patient seen: May 05, 2018 Time patient seen: 22:58 ROS Limited/Unobtainable: Yes Allergies: Coded Allergies: No Known Allergies (Unverified , 02/13/18) All Systems: reviewed and negative except above Subjective No new issues; Objective Last 24 Hour Vital Signs Date Time Temp Pulse Resp B/P (MAP) Pulse Ox O2 Delivery O2 Flow Rate FiO2 05/05/18 20:00 97.6 95 19 120/77 (91) 97 97.6 05/05/18 18:59 97 Room Air 21 05/05/18 16:00 98.1 88 19 118/79 (92) 96 98.1 05/05/18 11:56 98.1 89 18 112/75 (87) 95 98.1 05/05/18 08:00 97.4 92 19 99/56 (70) 97 97.4 05/05/18 07:34 Room Air 05/05/18 07:01 98 Room Air 21 05/05/18 03:57 97.3 70 20 100/70 (80) 91 97.3 05/05/18 00:00 97.6 74 20 119/69 (86) 93 97.6 Intake and Output 05/04/18 05/05/18 19:00 07:00 Intake Total 165.0 ml 137.5 ml Output Total 3 ml Balance 162.0 ml 137.5 ml IV Total 165.0 ml 137.5 ml Output Urine Total 3 ml # Voids 2 Laboratory Tests 05/05/18 05:35: White Blood Count 5.8, Red Blood Count 4.18L, Hemoglobin 12.4L, Hematocrit 38.1L , Mean Corpuscular Volume 91, Mean Corpuscular Hemoglobin 29.6, Mean Corpuscular Hemoglobin Concent 32.5, Red Cell Distribution Width 12.9, Platelet Count 160, Mean Platelet Volume 6.7, Neutrophils (%) (Auto) 64.1, Lymphocytes (% ) (Auto) 23.8, Monocytes (%) (Auto) 9.4, Eosinophils (%) (Auto) 1.6, Basophils ( %) (Auto) 1.1, Sodium Level 140, Potassium Level 4.2, Chloride Level 105, Carbon Dioxide Level 29, Anion Gap 6, Blood Urea Nitrogen 15, Creatinine 0.9, Estimat Glomerular Filtration Rate > 60, Glucose Level 94, Calcium Level 8.6 Height (Feet): 5 Height (Inches): 6.00 Weight (Pounds): 129 General Appearance: no apparent distress EENT: PERRL/EOMI Neck: non-tender Cardiovascular: normal rate Abdomen: non tender Pelvis: normal rectal exam Extremities: non-tender Edema: no edema noted Arm (L), no edema noted Arm (R), no edema noted Leg (L), no edema noted Leg (R), no edema noted Pedal (L), no edema noted Pedal (R), no edema noted Generalized Neurologic: alert Kristopher Doyle M.D. May 05, 2018 22:59
[2018-05-05] MEDS: LORazepam 1mg tab ORAL PRN (23:40)
[2018-05-06] VITALS: BP 121/90
[2018-05-06 04:00] VITALS: BP 120/82
[2018-05-06] MEDS: Piperacillin/Tazobactam 3.375 GM in D5W 110 ML IVPB SCH ×3 (05:17→22:15)
[2018-05-06] MEDS: Valproic Acid 500mg/10ml liquid NG SCH ×3 (05:22→17:17)
[2018-05-06 06:15] LABS: BASOPHILS % (AUTO) 1.9 % (0.0-2.0); EOSINOPHILS % (AUTO) 2.4 % (0.0-3.0); HEMATOCRIT 35.1 % (42.0-52.0); HEMOGLOBIN 11.3 G/DL (14.2-18.0); LYMPHOCYTES % (AUTO) 38.6 % (20.0-45.0); MEAN CORPUSCULAR VOLUME 91 FL (80-99); MONOCYTES % (AUTO) 11.9 % (1.0-10.0); NEUTROPHILS % (AUTO) 45.3 % (45.0-75.0); PLATELET COUNT 138 K/UL (150-450); RED BLOOD COUNT 3.84 M/UL (4.70-6.10); RED CELL DISTRIBUTION WIDTH 13.1 % (11.6-14.8); WHITE BLOOD COUNT 3.8 K/UL (4.8-10.8)
[2018-05-06 06:34] LABS: ANION GAP 5 mmol/L (5-15); BLOOD UREA NITROGEN 14 mg/dL (7-18); CALCIUM 8.5 MG/DL (8.5-10.1); CARBON DIOXIDE 30 MMOL/L (21-32); CHLORIDE 107 MMOL/L (98-107); CREATININE 0.8 MG/DL (0.55-1.30); POTASSIUM 4.2 MMOL/L (3.5-5.1); SODIUM 142 MMOL/L (136-145)
[2018-05-06 08:00] VITALS: BP 126/74
[2018-05-06] MEDS: LORazepam Inj 2mg/ml 1ml IV PRN ×2 (08:28→17:17)
[2018-05-06] MEDS: Theophylline ER 100mg ORAL SCH ×2 (08:31→21:00)
[2018-05-06] MEDS: OXcarbazepine 150mg tab ORAL SCH (08:31)
--- NOTE | 2018-05-06 09:17 | General Progress Note ---
Assessment/Plan Problem List: (1) Malnutrition ICD Codes: E46 - Unspecified protein-calorie malnutrition SNOMED: 67311918 (2) UTI (urinary tract infection) ICD Codes: N39.0 - Urinary tract infection, site not specified SNOMED: 95061246 (3) Anemia ICD Codes: D64.9 - Anemia, unspecified SNOMED: 007022468 (4) COPD (chronic obstructive pulmonary disease) ICD Codes: J44.9 - Chronic obstructive pulmonary disease, unspecified SNOMED: 88683041 (5) Psychosis ICD Codes: F29 - Unspecified psychosis not due to a substance or known physiological condition SNOMED: 90668377 (6) Seizure disorder ICD Codes: G40.909 - Epilepsy, unspecified, not intractable, without status epilepticus SNOMED: 147293383 (7) Altered mental status ICD Codes: R41.82 - Altered mental status, unspecified SNOMED: 439799049 Status: stable, progressing Assessment/Plan ot pt diet abx seizure control neuro psyc f/u cbc bmp am dc plan Subjective Constitutional: Reports: weakness Allergies: Coded Allergies: No Known Allergies (Unverified , 02/13/18) All Systems: reviewed and negative except above Subjective confused in bed Objective Last 24 Hour Vital Signs Date Time Temp Pulse Resp B/P (MAP) Pulse Ox O2 Delivery O2 Flow Rate FiO2 05/06/18 08:03 98 Room Air 21 05/06/18 08:00 97.8 86 20 126/74 (91) 96 97.8 05/06/18 04:00 97.5 72 20 120/82 (95) 100 97.5 05/06/18 00:00 97.2 87 20 121/90 (100) 95 97.2 05/05/18 21:00 Room Air 05/05/18 20:00 97.6 95 19 120/77 (91) 97 97.6 05/05/18 18:59 97 Room Air 21 05/05/18 16:00 98.1 88 19 118/79 (92) 96 98.1 05/05/18 11:56 98.1 89 18 112/75 (87) 95 98.1 Intake and Output 05/05/18 05/06/18 19:00 07:00 Intake Total 415.0 ml 257.5 ml Balance 415.0 ml 257.5 ml Intake Oral 120 ml IV Total 165.0 ml 137.5 ml Other 250 ml # Voids 3 2 Laboratory Tests 05/06/18 05:05: White Blood Count 3.8L, Red Blood Count 3.84L, Hemoglobin 11.3L, Hematocrit 35.1L, Mean Corpuscular Volume 91, Mean Corpuscular Hemoglobin 29.4, Mean Corpuscular Hemoglobin Concent 32.2, Red Cell Distribution Width 13.1, Platelet Count 138L, Mean Platelet Volume 6.3L, Neutrophils (%) (Auto) 45.3, Lymphocytes (%) (Auto) 38.6, Monocytes (%) (Auto) 11.9H, Eosinophils (%) (Auto) 2.4, Basophils (%) (Auto) 1.9, Sodium Level 142, Potassium Level 4.2, Chloride Level 107, Carbon Dioxide Level 30, Anion Gap 5, Blood Urea Nitrogen 14, Creatinine 0.8, Estimat Glomerular Filtration Rate > 60, Glucose Level 88, Calcium Level 8.5 Height (Feet): 5 Height (Inches): 6.00 Weight (Pounds): 129 General Appearance: lethargic EENT: normal ENT inspection Neck: normal alignment Cardiovascular: normal peripheral pulses, normal rate, regular rhythm Respiratory/Chest: chest wall non-tender, lungs clear, normal breath sounds Abdomen: normal bowel sounds, non tender, soft Extremities: normal inspection Edema: no edema noted Arm (L), no edema noted Arm (R), no edema noted Leg (L), no edema noted Leg (R), no edema noted Pedal (L), no edema noted Pedal (R), no edema noted Generalized Neurologic: motor weakness Skin: normal pigmentation, warm/dry Jose Treadwell DO May 06, 2018 09:17
--- NOTE | 2018-05-06 09:55 | Pulmonology Progress Note ---
Assessment/Plan Assessment/Plan ASSESSMENT probable aspiration pneumonia high aspiration risk COPD dysphagia encephalopathy 2 to [facility] [place] severe protein calorie malnutrition schizoaffective disorder history of hypertension PLAN OF CARE Med Surg floor O2 to keep pulse ox above 92%, pulmonary toilet, empiric abx ; sputum cx -; initial CXR with R basilar opacity ,possible developing pneumonia fup with CXR in am abx last day in am VSS + aspiration Per POLST no artificial means of nutrition GI also not recommends artificial nutrition, given psych history Diet per ST recs with strict aspiration /reflux precautions GI prophylaxis outpatient GI procedure prn initial CT head no acute intracranial pathology psych follows; per psych encephalopathy 2 to [facility] [place] and schizoaffective disorder. psych med regimen optimized per psych nutritional recommendations implemented in plan of care BP management seizure precaution ,Depakote DNR/DNI status dc plan case discussed and evaluated by supervising physician Subjective Allergies: Coded Allergies: No Known Allergies (Unverified , 02/13/18) Subjective no signs of resp distress patient unable to provide any history Objective Last 24 Hour Vital Signs Date Time Temp Pulse Resp B/P (MAP) Pulse Ox O2 Delivery O2 Flow Rate FiO2 05/06/18 09:00 Room Air 05/06/18 08:03 98 Room Air 21 05/06/18 08:00 97.8 86 20 126/74 (91) 96 97.8 05/06/18 04:00 97.5 72 20 120/82 (95) 100 97.5 05/06/18 00:00 97.2 87 20 121/90 (100) 95 97.2 05/05/18 21:00 Room Air 05/05/18 20:00 97.6 95 19 120/77 (91) 97 97.6 05/05/18 18:59 97 Room Air 21 05/05/18 16:00 98.1 88 19 118/79 (92) 96 98.1 05/05/18 11:56 98.1 89 18 112/75 (87) 95 98.1 Intake and Output 05/05/18 05/06/18 19:00 07:00 Intake Total 415.0 ml 257.5 ml Balance 415.0 ml 257.5 ml Intake Oral 120 ml IV Total 165.0 ml 137.5 ml Other 250 ml # Voids 3 2 General Appearance: no acute distress, cachetic - confused HEENT: normocephalic, atraumatic, anicteric Respiratory/Chest: lungs clear - with moderate air exchange , no respiratory distress Cardiovascular: normal peripheral pulses, normal rate Abdomen: normal bowel sounds, soft, non tender, non distended Neurologic/Psychiatric: abnormal gait, alert - verbal, but confused Musculoskeletal: atrophy - BLE Laboratory Tests 05/06/18 05:05: White Blood Count 3.8L, Red Blood Count 3.84L, Hemoglobin 11.3L, Hematocrit 35.1L, Mean Corpuscular Volume 91, Mean Corpuscular Hemoglobin 29.4, Mean Corpuscular Hemoglobin Concent 32.2, Red Cell Distribution Width 13.1, Platelet Count 138L, Mean Platelet Volume 6.3L, Neutrophils (%) (Auto) 45.3, Lymphocytes (%) (Auto) 38.6, Monocytes (%) (Auto) 11.9H, Eosinophils (%) (Auto) 2.4, Basophils (%) (Auto) 1.9, Sodium Level 142, Potassium Level 4.2, Chloride Level 107, Carbon Dioxide Level 30, Anion Gap 5, Blood Urea Nitrogen 14, Creatinine 0.8, Estimat Glomerular Filtration Rate > 60, Glucose Level 88, Calcium Level 8.5 Current Medications Medications (Trade) Dose Ordered Sig/Carmen Route PRN Reason Start Time Stop Time Status Last Admin Dose Admin Acetaminophen (Tylenol) 650 mg Q4H PRN ORAL fever 05/01/18 19:00 05/31/18 18:59 Al Hydroxide/Mg Hydroxide (Mylanta II) 30 ml Q6H PRN ORAL dyspepsia 05/01/18 19:00 05/31/18 18:59 Albuterol/ Ipratropium (Albuterol/ Ipratropium) 3 ml Q6H PRN HHN Shortness of Breath 05/02/18 11:30 05/07/18 11:29 Dextrose (Dextrose 50%) 25 ml PRN IV Hypoglycemia 05/01/18 19:15 05/31/18 19:14 Dextrose (Dextrose 50%) 50 ml PRN IV hypoglycemia 05/01/18 19:15 05/31/18 19:14 Famotidine (Pepcid) 20 mg DAILY ORAL 05/02/18 09:00 06/01/18 08:59 05/06/18 08:31 Gabapentin (Neurontin) 300 mg BID ORAL 05/02/18 09:00 06/01/18 08:59 05/06/18 08:31 Lorazepam (Ativan 2mg/ml 1ml) 0.5 mg Q4H PRN IV For Anxiety 05/01/18 19:00 05/08/18 18:59 05/06/18 08:28 Lorazepam (Ativan) 2 mg Q4H PRN ORAL Agitation 05/02/18 15:00 05/09/18 14:59 05/05/18 23:40 Morphine Sulfate (Morphine Sulfate) 1 mg Q4H PRN IVP For Pain 05/01/18 19:00 05/08/18 18:59 Ondansetron HCl (Zofran) 4 mg Q6H PRN IVP Nausea & Vomiting 05/01/18 19:00 05/31/18 18:59 Oxcarbazepine (Trileptal) 300 mg DAILY ORAL 05/02/18 09:00 06/01/18 08:59 05/06/18 08:31 Piperacillin Sod/ Tazobactam Sod 3.375 gm/Dextrose 110 ml @ 27.5 mls/hr EVERY 8 HOURS IVPB 05/02/18 14:00 05/07/18 13:59 05/06/18 05:17 Polyethylene Glycol (Miralax) 17 gm HSPRN PRN ORAL Constipation 05/01/18 19:00 05/31/18 18:59 Promethazine HCl/ Codeine (Phenergan with Codeine) 5 ml Q4H PRN ORAL For Cough 05/02/18 12:15 06/01/18 12:14 05/03/18 21:52 Risperidone (RisperDAL) 6 mg BEDTIME ORAL 05/01/18 21:00 05/31/18 20:59 05/05/18 20:20 Theophylline (Bharat-Dur) 100 mg EVERY 12 HOURS ORAL 05/02/18 21:00 06/01/18 20:59 05/06/18 08:31 Valproic Acid (Depakene) 500 mg Q6HR NG 05/03/18 12:00 06/02/18 11:59 05/06/18 05:22 Zolpidem Tartrate (Ambien) 5 mg HSPRN PRN ORAL Insomnia 05/01/18 19:00 05/08/18 18:59 05/05/18 20:20 Shaye Devi NP May 06, 2018 09:55
[2018-05-06 12:00] VITALS: BP 98/64
[2018-05-06] MEDS: LORazepam 1mg tab ORAL PRN (12:13)
[2018-05-06] MEDS ORDERED: Zolpidem 5mg tab ORAL PRN (12:45)
[2018-05-06] MEDS ORDERED: Albuterol/Ipratropium 3ml neb HHN PRN (13:00)
[2018-05-06 15:49] VITALS: BP 110/75
--- NOTE | 2018-05-06 16:35 | Discharge Summary ---
Discharge Summary Hospital Course Date of Admission May 01, 2018 at 17:06 Date of Discharge 05/06/18 Admitting Diagnosis ALTERD MENTAL STATUS HPI Asif Serna is a 63 year old male who was admitted on May 01, 2018 at 17 :06 for Altered Mental Status Consultations gi; psychiatry Procedures video swallow; Hospital Course Patient was seen by GI and PEG was not recommended; Patient family unable to be contacted; patient to be dc to snf w/ IVF and abx; Discharge Condition Upon Discharge: stable Discharge Disposition Patient was discharged to Discharge Diagnoses: (1) COPD (chronic obstructive pulmonary disease) (2) Psychosis (3) Seizure disorder (4) Aspiration pneumonia (5) At high risk for aspiration (6) Altered mental status (7) Anemia (8) Malnutrition (9) UTI (urinary tract infection) Kristopher Doyle M.D. May 06, 2018 16:35
--- NOTE | 2018-05-06 16:37 | Discharge Instructions ---
Discharge Instructions Discharge Instructions Follow up with: gi for possible PEG placement in future; Diet: other - nectar thick; aspiration precautions; Resume Normal Activity?: No Activity: light activity For Congestive Heart Failure Reminder Report to your physician any weight gain of 5 pounds or more in one week. Kristopher Doyle M.D. May 06, 2018 16:37
[2018-05-06] MEDS: D5 1/2NS 1,000 ML IV SCH (17:40)
[2018-05-06 20:00] VITALS: BP 104/63
[2018-05-07] VITALS: BP 106/72
[2018-05-07] MEDS: Valproic Acid 500mg/10ml liquid NG SCH ×6 (00:29→23:33)
[2018-05-07] MEDS: LORazepam Inj 2mg/ml 1ml IV PRN ×2 (03:26→12:06)
[2018-05-07 04:00] VITALS: BP 119/76
[2018-05-07] MEDS: Theophylline 80mg/15ml ORAL SCH ×4 (05:10→23:26)
[2018-05-07] MEDS: Piperacillin/Tazobactam 3.375 GM in D5W 110 ML IVPB SCH (05:11)
[2018-05-07 06:24] LABS: BASOPHILS % (AUTO) 1.6 % (0.0-2.0); EOSINOPHILS % (AUTO) 1.9 % (0.0-3.0); HEMATOCRIT 35.7 % (42.0-52.0); HEMOGLOBIN 11.9 G/DL (14.2-18.0); LYMPHOCYTES % (AUTO) 30.8 % (20.0-45.0); MEAN CORPUSCULAR VOLUME 91 FL (80-99); MONOCYTES % (AUTO) 7.8 % (1.0-10.0); NEUTROPHILS % (AUTO) 57.8 % (45.0-75.0); PLATELET COUNT 154 K/UL (150-450); RED BLOOD COUNT 3.93 M/UL (4.70-6.10); WHITE BLOOD COUNT 5.2 K/UL (4.8-10.8)
[2018-05-07] MEDS: D5 1/2NS 1,000 ML IV SCH ×2 (06:25→14:14)
[2018-05-07 06:49] LABS: ANION GAP 5 mmol/L (5-15); BLOOD UREA NITROGEN 14 mg/dL (7-18); CALCIUM 8.3 MG/DL (8.5-10.1); CARBON DIOXIDE 30 MMOL/L (21-32); CHLORIDE 106 MMOL/L (98-107); CREATININE 0.8 MG/DL (0.55-1.30); POTASSIUM 3.9 MMOL/L (3.5-5.1); SODIUM 141 MMOL/L (136-145)
[2018-05-07] MEDS: LORazepam 1mg tab ORAL PRN ×2 (07:10→17:01)
[2018-05-07 08:00] VITALS: BP 120/67
[2018-05-07] MEDS: OXcarbazepine 150mg tab ORAL SCH (08:00)
--- NOTE | 2018-05-07 08:22 | General Progress Note ---
Assessment/Plan Problem List: (1) Malnutrition ICD Codes: E46 - Unspecified protein-calorie malnutrition SNOMED: 42767327 (2) UTI (urinary tract infection) ICD Codes: N39.0 - Urinary tract infection, site not specified SNOMED: 59315055 (3) Anemia ICD Codes: D64.9 - Anemia, unspecified SNOMED: 116821283 (4) COPD (chronic obstructive pulmonary disease) ICD Codes: J44.9 - Chronic obstructive pulmonary disease, unspecified SNOMED: 59723152 (5) Psychosis ICD Codes: F29 - Unspecified psychosis not due to a substance or known physiological condition SNOMED: 98207030 (6) Seizure disorder ICD Codes: G40.909 - Epilepsy, unspecified, not intractable, without status epilepticus SNOMED: 014405119 (7) Altered mental status ICD Codes: R41.82 - Altered mental status, unspecified SNOMED: 279262006 Status: stable, progressing Assessment/Plan ot pt diet abx seizure control neuro psyc f/u cbc bmp am dc if clear Subjective Constitutional: Reports: weakness Allergies: Coded Allergies: No Known Allergies (Unverified , 02/13/18) All Systems: reviewed and negative except above Subjective confused in bed Objective Last 24 Hour Vital Signs Date Time Temp Pulse Resp B/P (MAP) Pulse Ox O2 Delivery O2 Flow Rate FiO2 05/07/18 04:00 98.8 78 21 119/76 (90) 95 98.8 05/07/18 00:00 97.8 89 18 106/72 (83) 95 97.8 05/06/18 21:00 Room Air 05/06/18 20:00 98.2 71 22 104/63 (77) 94 98.2 05/06/18 19:34 97 Room Air 21 05/06/18 15:49 97.5 75 20 110/75 (87) 96 97.5 05/06/18 12:00 97.5 76 20 98/64 (75) 98 97.5 05/06/18 09:00 Room Air Intake and Output 05/06/18 05/07/18 19:00 07:00 Intake Total 702.5 ml 1040.0 ml Balance 702.5 ml 1040.0 ml Intake Oral 600 ml IV Total 102.5 ml 560.0 ml Other 480 ml # Voids 3 2 # Bowel Movements 2 Laboratory Tests 05/07/18 05:20: White Blood Count 5.2, Red Blood Count 3.93L, Hemoglobin 11.9L, Hematocrit 35.7L , Mean Corpuscular Volume 91, Mean Corpuscular Hemoglobin 30.3, Mean Corpuscular Hemoglobin Concent 33.5, Red Cell Distribution Width 13.0, Platelet Count 154, Mean Platelet Volume 7.1, Neutrophils (%) (Auto) 57.8, Lymphocytes (% ) (Auto) 30.8, Monocytes (%) (Auto) 7.8, Eosinophils (%) (Auto) 1.9, Basophils ( %) (Auto) 1.6, Sodium Level 141, Potassium Level 3.9, Chloride Level 106, Carbon Dioxide Level 30, Anion Gap 5, Blood Urea Nitrogen 14, Creatinine 0.8, Estimat Glomerular Filtration Rate > 60, Glucose Level 100, Calcium Level 8.3L Height (Feet): 5 Height (Inches): 6.00 Weight (Pounds): 129 General Appearance: lethargic EENT: normal ENT inspection Neck: non-tender, normal alignment, supple Cardiovascular: normal peripheral pulses, normal rate, regular rhythm Respiratory/Chest: chest wall non-tender, lungs clear, normal breath sounds Abdomen: normal bowel sounds, non tender, soft Extremities: normal inspection Edema: no edema noted Arm (L), no edema noted Arm (R), no edema noted Leg (L), no edema noted Leg (R), no edema noted Pedal (L), no edema noted Pedal (R), no edema noted Generalized Neurologic: motor weakness Skin: normal pigmentation, warm/dry Jose Treadwell DO May 07, 2018 08:21
--- NOTE | 2018-05-07 08:54 | Pulmonology Progress Note ---
Assessment/Plan Assessment/Plan ASSESSMENT probable aspiration pneumonia high aspiration risk COPD dysphagia encephalopathy 2 to [facility] severe protein calorie malnutrition schizoaffective disorder history of hypertension PLAN OF CARE Med Surg floor O2 to keep pulse ox above 92%, pulmonary toilet, empiric abx ; sputum cx -; initial CXR with R basilar opacity ,possible developing pneumonia fup with CXR this am abx last day in am VSS + aspiration Per POLST no artificial means of nutrition GI also not recommends artificial nutrition, given psych history Diet per ST recs with strict aspiration /reflux precautions GI prophylaxis outpatient GI procedure prn initial CT head no acute intracranial pathology psych follows; per psych encephalopathy 2 to [facility] and schizoaffective disorder. psych med regimen optimized per psych nutritional recommendations implemented in plan of care BP management seizure precaution ,Depakote DNR/DNI status dc today as per PMD orders to SNF case discussed and evaluated by supervising physician Subjective Allergies: Coded Allergies: No Known Allergies (Unverified , 02/13/18) Subjective no signs of resp distress pulse ox stable Objective Last 24 Hour Vital Signs Date Time Temp Pulse Resp B/P (MAP) Pulse Ox O2 Delivery O2 Flow Rate FiO2 05/07/18 08:32 97 Room Air 21 05/07/18 08:00 97.2 95 20 120/67 (84) 98 97.2 05/07/18 04:00 98.8 78 21 119/76 (90) 95 98.8 05/07/18 00:00 97.8 89 18 106/72 (83) 95 97.8 05/06/18 21:00 Room Air 05/06/18 20:00 98.2 71 22 104/63 (77) 94 98.2 05/06/18 19:34 97 Room Air 21 05/06/18 15:49 97.5 75 20 110/75 (87) 96 97.5 05/06/18 12:00 97.5 76 20 98/64 (75) 98 97.5 05/06/18 09:00 Room Air Intake and Output 05/06/18 05/07/18 19:00 07:00 Intake Total 702.5 ml 1040.0 ml Balance 702.5 ml 1040.0 ml Intake Oral 600 ml IV Total 102.5 ml 560.0 ml Other 480 ml # Voids 3 2 # Bowel Movements 2 Objective General Appearance: no acute distress, cachetic, confused HEENT: normocephalic, atraumatic, anicteric Respiratory/Chest: lungs clear - with moderate air exchange , no respiratory distress Cardiovascular: normal peripheral pulses, normal rate Abdomen: normal bowel sounds, soft, non tender, non distended Neurologic/Psychiatric: abnormal gait, alert, verbal, but confused Musculoskeletal: atrophy - BLE Laboratory Tests 05/07/18 05:20: White Blood Count 5.2, Red Blood Count 3.93L, Hemoglobin 11.9L, Hematocrit 35.7L , Mean Corpuscular Volume 91, Mean Corpuscular Hemoglobin 30.3, Mean Corpuscular Hemoglobin Concent 33.5, Red Cell Distribution Width 13.0, Platelet Count 154, Mean Platelet Volume 7.1, Neutrophils (%) (Auto) 57.8, Lymphocytes (% ) (Auto) 30.8, Monocytes (%) (Auto) 7.8, Eosinophils (%) (Auto) 1.9, Basophils ( %) (Auto) 1.6, Sodium Level 141, Potassium Level 3.9, Chloride Level 106, Carbon Dioxide Level 30, Anion Gap 5, Blood Urea Nitrogen 14, Creatinine 0.8, Estimat Glomerular Filtration Rate > 60, Glucose Level 100, Calcium Level 8.3L Current Medications Medications (Trade) Dose Ordered Sig/Carmen Route PRN Reason Start Time Stop Time Status Last Admin Dose Admin Acetaminophen (Tylenol) 650 mg Q4H PRN ORAL fever 05/01/18 19:00 05/31/18 18:59 Al Hydroxide/Mg Hydroxide (Mylanta II) 30 ml Q6H PRN ORAL dyspepsia 05/01/18 19:00 05/31/18 18:59 Albuterol/ Ipratropium (Albuterol/ Ipratropium) 3 ml Q6H PRN HHN Shortness of Breath 05/06/18 13:00 05/11/18 12:59 Dextrose (Dextrose 50%) 25 ml PRN IV Hypoglycemia 05/01/18 19:15 05/31/18 19:14 Dextrose (Dextrose 50%) 50 ml PRN IV hypoglycemia 05/01/18 19:15 05/31/18 19:14 Dextrose/Sodium Chloride 1,000 ml @ 75 mls/hr [id number] IV 05/06/18 17:30 05/09/18 17:29 05/06/18 17:40 Famotidine (Pepcid) 20 mg DAILY ORAL 05/02/18 09:00 06/01/18 08:59 05/07/18 08:00 Gabapentin (Neurontin) 300 mg BID ORAL 05/02/18 09:00 06/01/18 08:59 05/07/18 08:00 Lorazepam (Ativan 2mg/ml 1ml) 0.5 mg Q4H PRN IV For Anxiety 05/06/18 13:00 05/13/18 12:59 05/07/18 03:26 Lorazepam (Ativan) 2 mg Q4H PRN ORAL Agitation 05/02/18 15:00 05/09/18 14:59 05/07/18 07:10 Morphine Sulfate (Morphine Sulfate) 1 mg Q4H PRN IVP For Pain 05/01/18 19:00 05/08/18 18:59 Ondansetron HCl (Zofran) 4 mg Q6H PRN IVP Nausea & Vomiting 05/06/18 13:00 06/05/18 12:59 Oxcarbazepine (Trileptal) 300 mg DAILY ORAL 05/02/18 09:00 06/01/18 08:59 05/07/18 08:00 Piperacillin Sod/ Tazobactam Sod 3.375 gm/Dextrose 110 ml @ 27.5 mls/hr EVERY 8 HOURS IVPB 05/02/18 14:00 05/07/18 13:59 05/07/18 05:11 Polyethylene Glycol (Miralax) 17 gm HSPRN PRN ORAL Constipation 05/01/18 19:00 05/31/18 18:59 Promethazine HCl/ Codeine (Phenergan with Codeine) 5 ml Q4H PRN ORAL For Cough 05/02/18 12:15 06/01/18 12:14 05/03/18 21:52 Risperidone (RisperDAL) 6 mg BEDTIME ORAL 05/01/18 21:00 05/31/18 20:59 05/06/18 22:22 Theophylline (Theophylline) 80 mg Q8HR ORAL 05/07/18 06:00 06/06/18 05:59 05/07/18 05:10 Valproic Acid (Depakene) 500 mg Q6HR NG 05/03/18 12:00 06/02/18 11:59 05/07/18 05:43 Zolpidem Tartrate (Ambien) 5 mg HSPRN PRN ORAL Insomnia 05/06/18 12:45 05/13/18 12:44 Shaye Devi NP May 07, 2018 08:54
--- NOTE | 2018-05-07 10:08 | Diagnostic Imaging Report ---
INDICATION: Shortness of breath COMPARISON: Comparison chest x-ray dated 05/01/18 FINDINGS: Single frontal view demonstrates a normal cardiomediastinal silhouette. The lungs are clear. No pleural effusions. Mild levoscoliosis of the midthoracic spine. Stable regular calcifications in the left midlung zone, may be related to prior rib fracture and trauma. The visualized osseous structures are within normal limits. IMPRESSION: No acute cardiopulmonary disease.
[2018-05-07] MEDS ORDERED: ATIVAN2 MG ORAL (10:14)
[2018-05-07] MEDS ORDERED: PEPCID40 MG/5 ML PO (10:15)
[2018-05-07] MEDS ORDERED: MIRALAX17 G2 ORAL (10:16)
[2018-05-07] MEDS ORDERED: AMBIEN5 MG ORAL (10:16)
[2018-05-07] MEDS ORDERED: TRILEPTAL600 MG PO (10:17)
[2018-05-07] MEDS ORDERED: NEURONTIN100 MG ORAL (10:18)
[2018-05-07] MEDS ORDERED: THEOPHYLLINE A100 MG ORAL (10:18)
[2018-05-07 12:00] VITALS: BP 113/60
[2018-05-07] MEDS ORDERED: ZOSYN 3.373.375 GM/1 IVPB (15:27)
[2018-05-07 16:00] VITALS: BP 122/84
--- NOTE | 2018-05-07 20:28 | Diagnostic Imaging Report ---
APPROVED REPORT CPT Code: 83488 Present Symptoms Lower Extremity Pain: Bilateral Comments: Screening BILATERAL: Imaging reveals a patent deep venous system bilaterally. There is no evidence of thrombus within the femoral, popliteal or tibial segments. The greater saphenous veins are also within normal limits. Doppler indicates normal spontaneous flow within these segments.
[2018-05-08] MEDS: LORazepam Inj 2mg/ml 1ml IV PRN (01:38)
[2018-05-08] MEDS: D5 1/2NS 1,000 ML IV SCH (03:01)
[2018-05-08 04:00] VITALS: BP 138/92
[2018-05-08] MEDS: Theophylline 80mg/15ml ORAL SCH ×2 (05:17→14:38)
[2018-05-08] MEDS: Valproic Acid 500mg/10ml liquid NG SCH ×2 (05:17→11:54)
[2018-05-08] MEDS: LORazepam 1mg tab ORAL PRN ×2 (07:03→11:57)
[2018-05-08 07:18] LABS: ANION GAP 4 mmol/L (5-15); BLOOD UREA NITROGEN 9 mg/dL (7-18); CALCIUM 8.7 MG/DL (8.5-10.1); CARBON DIOXIDE 31 MMOL/L (21-32); CHLORIDE 105 MMOL/L (98-107); CREATININE 0.8 MG/DL (0.55-1.30); POTASSIUM 4.2 MMOL/L (3.5-5.1); SODIUM 140 MMOL/L (136-145)
[2018-05-08 07:24] LABS: BASOPHILS % (AUTO) 1.1 % (0.0-2.0); EOSINOPHILS % (AUTO) 1.7 % (0.0-3.0); HEMATOCRIT 37.2 % (42.0-52.0); LYMPHOCYTES % (AUTO) 33.7 % (20.0-45.0); MEAN CORPUSCULAR VOLUME 92 FL (80-99); MONOCYTES % (AUTO) 9.3 % (1.0-10.0); NEUTROPHILS % (AUTO) 54.2 % (45.0-75.0); PLATELET COUNT 166 K/UL (150-450); RED BLOOD COUNT 4.05 M/UL (4.70-6.10); RED CELL DISTRIBUTION WIDTH 12.7 % (11.6-14.8); WHITE BLOOD COUNT 4.9 K/UL (4.8-10.8)
[2018-05-08 08:03] VITALS: BP 123/66
[2018-05-08] MEDS: OXcarbazepine 150mg tab ORAL SCH (08:12)
--- NOTE | 2018-05-08 11:17 | GI Progress Note ---
Assessment/Plan Problems: (1) UTI (urinary tract infection) ICD Codes: N39.0 - Urinary tract infection, site not specified SNOMED: 81853754 (2) Malnutrition ICD Codes: E46 - Unspecified protein-calorie malnutrition SNOMED: 23141358 (3) Anemia ICD Codes: D64.9 - Anemia, unspecified SNOMED: 204390772 (4) Altered mental status ICD Codes: R41.82 - Altered mental status, unspecified SNOMED: 780581697 (5) At high risk for aspiration ICD Codes: Z91.89 - Other specified personal risk factors, not elsewhere classified SNOMED: 657288891 (6) Aspiration pneumonia ICD Codes: J69.0 - Pneumonitis due to inhalation of food and vomit SNOMED: 118344882 (7) Seizure disorder ICD Codes: G40.909 - Epilepsy, unspecified, not intractable, without status epilepticus SNOMED: 107742855 (8) Psychosis ICD Codes: F29 - Unspecified psychosis not due to a substance or known physiological condition SNOMED: 82158411 Status: stable, unchanged Status Narrative Discussed with Dr. Anderson. Assessment/Plan we do not recommend GT placement given patient psychiatric history resume diet per ST, on honey thick supportive care fu psychiatric recs ppi prn transfusions outpatient GI procedures The patient was seen and examined at bedside and all new and available data was reviewed in the patients chart. I agree with the above findings, impression and plan. (Patient seen earlier today. Signature stamp does not reflect patient encounter time.). - Garcia Anderson MD Subjective Subjective limited Objective Last 24 Hour Vital Signs Date Time Temp Pulse Resp B/P (MAP) Pulse Ox O2 Delivery O2 Flow Rate FiO2 05/08/18 08:13 97 Room Air 21 05/08/18 08:03 98.0 94 20 123/66 (85) 97 98.0 05/08/18 07:38 Room Air 05/08/18 04:00 97.4 92 20 138/92 (107) 97 97.4 05/07/18 21:00 Room Air 05/07/18 19:25 98 Room Air 21 05/07/18 16:00 96.3 95 20 122/84 (97) 97 96.3 05/07/18 12:00 96.8 71 20 113/60 (77) 98 96.8 Intake and Output 05/07/18 05/08/18 19:00 07:00 Intake Total 1477.5 ml 1140 ml Balance 1477.5 ml 1140 ml Intake Oral 720 ml IV Total 757.5 ml 900 ml Other 240 ml # Voids 3 2 # Bowel Movements 1 Laboratory Tests Test 05/08/18 06:30 White Blood Count 4.9 K/UL (4.8-10.8) Red Blood Count 4.05 M/UL (4.70-6.10) L Hemoglobin 12.0 G/DL (14.2-18.0) L Hematocrit 37.2 % (42.0-52.0) L Mean Corpuscular Volume 92 FL (80-99) Mean Corpuscular Hemoglobin 29.6 PG (27.0-31.0) Mean Corpuscular Hemoglobin Concent 32.3 G/DL (32.0-36.0) Red Cell Distribution Width 12.7 % (11.6-14.8) Platelet Count 166 K/UL (150-450) Mean Platelet Volume 6.8 FL (6.5-10.1) Neutrophils (%) (Auto) 54.2 % (45.0-75.0) Lymphocytes (%) (Auto) 33.7 % (20.0-45.0) Monocytes (%) (Auto) 9.3 % (1.0-10.0) Eosinophils (%) (Auto) 1.7 % (0.0-3.0) Basophils (%) (Auto) 1.1 % (0.0-2.0) Sodium Level 140 MMOL/L (136-145) Potassium Level 4.2 MMOL/L (3.5-5.1) Chloride Level 105 MMOL/L (98-107) Carbon Dioxide Level 31 MMOL/L (21-32) Anion Gap 4 mmol/L (5-15) L Blood Urea Nitrogen 9 mg/dL (7-18) Creatinine 0.8 MG/DL (0.55-1.30) Estimat Glomerular Filtration Rate > 60 mL/min (>60) Glucose Level 216 MG/DL (74-106) #H Calcium Level 8.7 MG/DL (8.5-10.1) Height (Feet): 5 Height (Inches): 6.00 Weight (Pounds): 129 General Appearance: WD/WN, no apparent distress, alert, thin Cardiovascular: normal rate Respiratory/Chest: normal breath sounds, no respiratory distress Abdominal Exam: normal bowel sounds, non tender, soft Extremities: normal range of motion, non-tender Renée Guerrier NP May 08, 2018 11:17
[2018-05-08 12:01] VITALS: BP 96/70
--- NOTE | 2018-05-08 12:35 | Pulmonology Progress Note ---
Assessment/Plan Problems: (1) Aspiration pneumonia (2) COPD (chronic obstructive pulmonary disease) (3) At high risk for aspiration (4) Psychosis (5) Seizure disorder Assessment/Plan still confused looks comfortable continue abx respiratory treatment check electrolytes f/u by psych dvt prophylaxis Subjective ROS Limited/Unobtainable: No Constitutional: Reports: no symptoms HEENT: Repors: no symptoms Respiratory: Reports: no symptoms Allergies: Coded Allergies: No Known Allergies (Unverified , 02/13/18) Objective Last 24 Hour Vital Signs Date Time Temp Pulse Resp B/P (MAP) Pulse Ox O2 Delivery O2 Flow Rate FiO2 05/08/18 12:01 97.8 83 20 96/70 (79) 96 97.8 05/08/18 08:13 97 Room Air 21 05/08/18 08:03 98.0 94 20 123/66 (85) 97 98.0 05/08/18 07:38 Room Air 05/08/18 04:00 97.4 92 20 138/92 (107) 97 97.4 05/07/18 21:00 Room Air 05/07/18 19:25 98 Room Air 21 05/07/18 16:00 96.3 95 20 122/84 (97) 97 96.3 Intake and Output 05/07/18 05/08/18 19:00 07:00 Intake Total 1477.5 ml 1140 ml Balance 1477.5 ml 1140 ml Intake Oral 720 ml IV Total 757.5 ml 900 ml Other 240 ml # Voids 3 2 # Bowel Movements 1 General Appearance: WD/WN HEENT: normocephalic, atraumatic Respiratory/Chest: chest wall non-tender, lungs clear Cardiovascular: normal peripheral pulses, normal rate Abdomen: normal bowel sounds, soft, non tender Genitourinary: normal external genitalia Extremities: no clubbing Skin: no rash Neurologic/Psychiatric: pharmacy informaticist II-XII grossly normal Laboratory Tests 05/08/18 06:30: White Blood Count 4.9, Red Blood Count 4.05L, Hemoglobin 12.0L, Hematocrit 37.2L , Mean Corpuscular Volume 92, Mean Corpuscular Hemoglobin 29.6, Mean Corpuscular Hemoglobin Concent 32.3, Red Cell Distribution Width 12.7, Platelet Count 166, Mean Platelet Volume 6.8, Neutrophils (%) (Auto) 54.2, Lymphocytes (% ) (Auto) 33.7, Monocytes (%) (Auto) 9.3, Eosinophils (%) (Auto) 1.7, Basophils ( %) (Auto) 1.1, Sodium Level 140, Potassium Level 4.2, Chloride Level 105, Carbon Dioxide Level 31, Anion Gap 4L, Blood Urea Nitrogen 9, Creatinine 0.8, Estimat Glomerular Filtration Rate > 60, Glucose Level 216#H, Calcium Level 8.7 Current Medications Medications (Trade) Dose Ordered Sig/Carmen Route PRN Reason Start Time Stop Time Status Last Admin Dose Admin Acetaminophen (Tylenol) 650 mg Q4H PRN ORAL fever 05/01/18 19:00 05/31/18 18:59 Al Hydroxide/Mg Hydroxide (Mylanta II) 30 ml Q6H PRN ORAL dyspepsia 05/01/18 19:00 05/31/18 18:59 Albuterol/ Ipratropium (Albuterol/ Ipratropium) 3 ml Q6H PRN HHN Shortness of Breath 05/06/18 13:00 05/11/18 12:59 Dextrose (Dextrose 50%) 25 ml PRN IV Hypoglycemia 05/01/18 19:15 05/31/18 19:14 Dextrose (Dextrose 50%) 50 ml PRN IV hypoglycemia 05/01/18 19:15 05/31/18 19:14 Dextrose/Sodium Chloride 1,000 ml @ 75 mls/hr [id number] IV 05/06/18 17:30 05/09/18 17:29 05/08/18 03:01 Famotidine (Pepcid) 20 mg DAILY ORAL 05/02/18 09:00 06/01/18 08:59 05/08/18 08:12 Gabapentin (Neurontin) 300 mg BID ORAL 05/02/18 09:00 06/01/18 08:59 05/08/18 08:12 Lorazepam (Ativan 2mg/ml 1ml) 2 mg Q4H PRN IV For Anxiety 05/08/18 13:00 05/15/18 12:59 Lorazepam (Ativan) 2 mg Q4H PRN ORAL Agitation 05/02/18 15:00 05/09/18 14:59 05/08/18 11:57 Morphine Sulfate (Morphine Sulfate) 1 mg Q4H PRN IVP For Pain 05/01/18 19:00 05/08/18 18:59 Ondansetron HCl (Zofran) 4 mg Q6H PRN IVP Nausea & Vomiting 05/06/18 13:00 06/05/18 12:59 Oxcarbazepine (Trileptal) 300 mg DAILY ORAL 05/02/18 09:00 06/01/18 08:59 05/08/18 08:12 Piperacillin Sod/ Tazobactam Sod 3.375 gm/Dextrose 110 ml @ 27.5 mls/hr EVERY 8 HOURS IVPB 05/08/18 14:00 05/13/18 13:59 Polyethylene Glycol (Miralax) 17 gm HSPRN PRN ORAL Constipation 05/01/18 19:00 05/31/18 18:59 Promethazine HCl/ Codeine (Phenergan with Codeine) 5 ml Q4H PRN ORAL For Cough 05/02/18 12:15 06/01/18 12:14 05/03/18 21:52 Risperidone (RisperDAL) 6 mg BEDTIME ORAL 05/01/18 21:00 05/31/18 20:59 05/06/18 22:22 Theophylline (Theophylline) 80 mg Q8HR ORAL 05/07/18 06:00 06/06/18 05:59 05/08/18 05:17 Valproic Acid (Depakene) 500 mg Q6HR NG 05/03/18 12:00 06/02/18 11:59 05/08/18 11:54 Zolpidem Tartrate (Ambien) 5 mg HSPRN PRN ORAL Insomnia 05/06/18 12:45 05/13/18 12:44 Joana Morton MD May 08, 2018 12:35
[2018-05-08] MEDS ORDERED: LORazepam Inj 2mg/ml 1ml IV PRN (13:00)
--- NOTE | 2018-05-08 13:08 | General Progress Note ---
Assessment/Plan Problem List: (1) Malnutrition ICD Codes: E46 - Unspecified protein-calorie malnutrition SNOMED: 19237867 (2) UTI (urinary tract infection) ICD Codes: N39.0 - Urinary tract infection, site not specified SNOMED: 54248280 (3) Anemia ICD Codes: D64.9 - Anemia, unspecified SNOMED: 404922654 (4) COPD (chronic obstructive pulmonary disease) ICD Codes: J44.9 - Chronic obstructive pulmonary disease, unspecified SNOMED: 10582559 (5) Psychosis ICD Codes: F29 - Unspecified psychosis not due to a substance or known physiological condition SNOMED: 33947728 (6) Seizure disorder ICD Codes: G40.909 - Epilepsy, unspecified, not intractable, without status epilepticus SNOMED: 126958216 (7) Altered mental status ICD Codes: R41.82 - Altered mental status, unspecified SNOMED: 130562245 Status: unchanged Assessment/Plan ot pt diet abx seizure control neuro psyc f/u cbc bmp am dc if clear Subjective Constitutional: Reports: weakness Allergies: Coded Allergies: No Known Allergies (Unverified , 02/13/18) All Systems: reviewed and negative except above Subjective confused in bed Objective Last 24 Hour Vital Signs Date Time Temp Pulse Resp B/P (MAP) Pulse Ox O2 Delivery O2 Flow Rate FiO2 05/08/18 12:01 97.8 83 20 96/70 (79) 96 97.8 05/08/18 08:13 97 Room Air 21 05/08/18 08:03 98.0 94 20 123/66 (85) 97 98.0 05/08/18 07:38 Room Air 05/08/18 04:00 97.4 92 20 138/92 (107) 97 97.4 05/07/18 21:00 Room Air 05/07/18 19:25 98 Room Air 21 05/07/18 16:00 96.3 95 20 122/84 (97) 97 96.3 Intake and Output 05/07/18 05/08/18 19:00 07:00 Intake Total 1477.5 ml 1140 ml Balance 1477.5 ml 1140 ml Intake Oral 720 ml IV Total 757.5 ml 900 ml Other 240 ml # Voids 3 2 # Bowel Movements 1 Laboratory Tests 05/08/18 06:30: White Blood Count 4.9, Red Blood Count 4.05L, Hemoglobin 12.0L, Hematocrit 37.2L , Mean Corpuscular Volume 92, Mean Corpuscular Hemoglobin 29.6, Mean Corpuscular Hemoglobin Concent 32.3, Red Cell Distribution Width 12.7, Platelet Count 166, Mean Platelet Volume 6.8, Neutrophils (%) (Auto) 54.2, Lymphocytes (% ) (Auto) 33.7, Monocytes (%) (Auto) 9.3, Eosinophils (%) (Auto) 1.7, Basophils ( %) (Auto) 1.1, Sodium Level 140, Potassium Level 4.2, Chloride Level 105, Carbon Dioxide Level 31, Anion Gap 4L, Blood Urea Nitrogen 9, Creatinine 0.8, Estimat Glomerular Filtration Rate > 60, Glucose Level 216#H, Calcium Level 8.7 Height (Feet): 5 Height (Inches): 6.00 Weight (Pounds): 129 General Appearance: lethargic EENT: normal ENT inspection Neck: normal alignment Cardiovascular: normal peripheral pulses, normal rate, regular rhythm Respiratory/Chest: chest wall non-tender, lungs clear, normal breath sounds Abdomen: normal bowel sounds, non tender, soft Extremities: normal inspection Edema: no edema noted Arm (L), no edema noted Arm (R), no edema noted Leg (L), no edema noted Leg (R), no edema noted Pedal (L), no edema noted Pedal (R), no edema noted Generalized Neurologic: motor weakness Skin: normal pigmentation, warm/dry Jose Treadwell DO May 08, 2018 13:08
[2018-05-08] MEDS ORDERED: Piperacillin/Tazobactam 3.375 GM in D5W 110 ML IVPB SCH (14:00)
[2018-05-08 16:00] VITALS: BP 123/76
== END 2018-05-08 17:59 | DRG 177 ==
LOC: EDBD 15:26 → EDBEDREQ 15:49 → EMR 16:38 → EDBEDREQ 16:44 → 4E 17:06 → EDBEDREQ 17:54 → 4E 21:32
DX: J69.0 Pneumonitis due to inhalation of food and vomit (principal); E43 Unspecified severe protein-calorie malnutrition; G93.40 Encephalopathy, unspecified; N39.0 Urinary tract infection, site not specified; F29 Unspecified psychosis not due to a substance or known physiological condition; J44.9 Chronic obstructive pulmonary disease, unspecified; G40.909 Epilepsy, unspecified, not intractable, without status epilepticus; D64.9 Anemia, unspecified; F03.90 Unspecified dementia, unspecified severity, without behavioral disturbance, psychotic disturbance, mood disturbance, and anxiety; F25.9 Schizoaffective disorder, unspecified; R13.10 Dysphagia, unspecified; R47.1 Dysarthria and anarthria; I10 Essential (primary) hypertension; Z66 Do not resuscitate
CPT/HCPCS: 36415; 70450; 71045; 74230; 80048; 80053; 80061; 80164; 81003; 82553; 83735; 84100; 84443; 84484; 85025; 85651; 87070; 87081; 87205; 92610; 93005; 93970; 94760; 96360; 99285

== ENCOUNTER 2018-10-30 12:46 | Inpatient (IN) | payer MEDICARE, OTHER ==
[~2018-10-30] VITALS: Ht 175.3 cm; Wt 61.2 kg
[~2018-10-30 12:46] MED LIST changes: +AMBIEN5 MG ORAL; +ATIVAN2 MG ORAL; +MIRALAX17 G2 ORAL; +NEURONTIN100 MG ORAL; +PEPCID40 MG/5 ML PO; +THEOPHYLLINE A100 MG ORAL; +ZOSYN 3.373.375 GM/1 IVPB
[2018-10-30 12:55] VITALS: BP 125/77
--- NOTE | 2018-10-30 12:55 | NUR ---
ED Nurse Note: PT BROUGHT IN BY AMBULANCE FROM [facility] DUE TO INCREASING AGITATION X THIS AM. PT IS NONVERBAL WHICH IS BASELINE PER EMS. UPON ARRIVAL, PT IS CALM AND COOPERATIVE. AT ARRIVAL, O2 SAT AT 88%. PT PLACED ON 2L O2 VIA NASAL CANNULA. RR13 @ 99% O2 SATURATION.
[2018-10-30 14:28] LABS: BASOPHILS % (AUTO) 0.7 % (0.0-2.0); EOSINOPHILS % (AUTO) 1.7 % (0.0-3.0); HEMATOCRIT 34.7 % (42.0-52.0); HEMOGLOBIN 11.4 G/DL (14.2-18.0); LYMPHOCYTES % (AUTO) 19.1 % (20.0-45.0); MEAN CORPUSCULAR VOLUME 91 FL (80-99); MONOCYTES % (AUTO) 10.9 % (1.0-10.0); NEUTROPHILS % (AUTO) 67.6 % (45.0-75.0); PLATELET COUNT 158 K/UL (150-450); RED BLOOD COUNT 3.82 M/UL (4.70-6.10); RED CELL DISTRIBUTION WIDTH 14.3 % (11.6-14.8); WHITE BLOOD COUNT 7.3 K/UL (4.8-10.8)
[2018-10-30 14:42] LABS: APPEARANCE,URINE CLEAR; BILIRUBIN, URINE NEGATIVE (NEGATIVE); COLOR,URINE PALE YELLOW; GLUCOSE, URINE (UA) NEGATIVE (NEGATIVE); KETONES,URINE NEGATIVE (NEGATIVE); LEUKOCYTE ESTERASE ,URINE NEGATIVE (NEGATIVE); NITRITE,URINE NEGATIVE (NEGATIVE); PH,URINE 7 (4.5-8.0); PROTEIN,URINE NEGATIVE (NEGATIVE); UROBILINOGEN,URINE NORMAL MG/DL (0.0-1.0)
[2018-10-30 14:47] LABS: ANION GAP 6 mmol/L (5-15); BLOOD UREA NITROGEN 14 mg/dL (7-18); CALCIUM 8.6 MG/DL (8.5-10.1); CARBON DIOXIDE 31 MMOL/L (21-32); CHLORIDE 101 MMOL/L (98-107); CREATININE 0.8 MG/DL (0.55-1.30); POTASSIUM 4.4 MMOL/L (3.5-5.1); SODIUM 138 MMOL/L (136-145)
[2018-10-30 14:52] LABS: ALANINE AMINOTRANSFERASE 14 U/L (12-78); ALBUMIN 3.2 G/DL (3.4-5.0); ALKALINE PHOSPHATASE 101 U/L (46-116); ASPARTATE AMINO TRANSFERASE 15 U/L (15-37); BILIRUBIN,TOTAL 0.2 MG/DL (0.2-1.0)
[2018-10-30 14:55] VITALS: BP 116/74
--- NOTE | 2018-10-30 15:25 | Emergency Room Report ---
History of Present Illness General Chief Complaint: General Complaint Source: Medical Record, EMS Present Illness HPI 63-year-old male presents ED for evaluation. Brought in for increased agitation times one day from longterm facility. Per nursing staff patient has been attempting to hit nursing staff. Has psychiatric history. Was seen a Brotman a few weeks ago for similar presentation and subsequent be discharged back to longterm facility. Upon arrival patient not answering any questions. No signs of distress. No other aggravating relieving factors. No other associated symptoms Allergies: Coded Allergies: No Known Allergies (Unverified , 02/13/18) Patient History Past Medical History: COPD, seizures, psych hx Past Surgical History: none Pertinent Family History: none Social History: Denies: smoking, alcohol use, drug use Immunizations: UTD Reviewed Nursing Documentation: PMH: Agreed; PSxH: Agreed Nursing Documentation-PMH Hx Cardiac Problems: No Hx COPD: Yes Hx Cancer: No Hx Gastrointestinal Problems: No Hx Neurological Problems: Yes - altered mental status Hx Seizures: Yes Hx Epilepsy: Yes Hx Speech Problem: Yes Review of Systems All Other Systems: limited Physical Exam Vital Signs Date Time Temp Pulse Resp B/P (MAP) Pulse Ox O2 Delivery O2 Flow Rate FiO2 10/30/18 12:47 97.9 97 18 122/73 90 Nasal Cannula 2.0 Sp02 EP Interpretation: reviewed, normal General Appearance: no apparent distress, non-toxic, lethargic Head: normocephalic, atraumatic Eyes: bilateral eye normal inspection, bilateral eye PERRL ENT: hearing grossly normal, normal pharynx, no angioedema, normal voice Neck: full range of motion, supple/symm/no masses Respiratory: chest non-tender, lungs clear, normal breath sounds, speaking full sentences Cardiovascular #1: regular rate, rhythm, no edema Cardiovascular #2: 2+ carotid (R), 2+ carotid (L), 2+ radial (R), 2+ radial (L) , 2+ dorsalis pedis (R), 2+ dorsalis pedis (L) Gastrointestinal: normal bowel sounds, non tender, soft, non-distended, no guarding, no rebound Rectal: deferred Genitourinary: normal inspection, no CVA tenderness Musculoskeletal: back normal, gait/station normal, normal range of motion, non- tender Neurologic: other - nonverbal Psychiatric: other - nonverbal Reflexes: 3+ bicep (R), 3+ bicep (L), 3+ tricep (R), 3+ tricep (L), 3+ knee (R) , 3+ knee (L) Skin: normal color, no rash, warm/dry, well hydrated Lymphatic: no adenopathy Medical Decision Making Diagnostic Impression: Primary Impression: Altered mental status Qualified Codes: R41.82 - Altered mental status, unspecified Additional Impression: Psychosis Qualified Codes: F29 - Unspecified psychosis not due to a substance or known physiological condition ER Course Hospital Course CC 3-year-old male presents ED for increased agitation from longterm facility, aggressive with nursing staff Differential diagnoses include: UTI, dehydration, psychosis Clinical course Patient placed on stretcher. On endo tech. After initial history and physical, I ordered labs, IV fluids, UA Labs - no leukocytosis, hb/hct stable, electrolytes ok, ua negative, UDS + opiates patient is well-known to Dr. Quintana; agrees that patient will require admission Case discussed with Dr Treadwell and they agreed to admit patient to their service for further care and support I feel this is a highly complex case requiring extensive working including EKG/ Rhythm strip, Xray/CT/US, Blood/urine lab work, repeat exams while in ED, and administration of strong opiates/narcotics for pain control, admission to hospital or close patient follow up. Diagnosis - AMS, psychosis Patient admitted to floor in serious condition Labs Test 10/30/18 14:05 White Blood Count 7.3 K/UL (4.8-10.8) Red Blood Count 3.82 M/UL (4.70-6.10) Hemoglobin 11.4 G/DL (14.2-18.0) Hematocrit 34.7 % (42.0-52.0) Mean Corpuscular Volume 91 FL (80-99) Mean Corpuscular Hemoglobin 29.7 PG (27.0-31.0) Mean Corpuscular Hemoglobin Concent 32.7 G/DL (32.0-36.0) Red Cell Distribution Width 14.3 % (11.6-14.8) Platelet Count 158 K/UL (150-450) Mean Platelet Volume 7.0 FL (6.5-10.1) Neutrophils (%) (Auto) 67.6 % (45.0-75.0) Lymphocytes (%) (Auto) 19.1 % (20.0-45.0) Monocytes (%) (Auto) 10.9 % (1.0-10.0) Eosinophils (%) (Auto) 1.7 % (0.0-3.0) Basophils (%) (Auto) 0.7 % (0.0-2.0) Urine Color Pale yellow Urine Appearance Clear Urine pH 7 (4.5-8.0) Urine Specific [place] 1.005 (1.005-1.035) Urine Protein Negative (NEGATIVE) Urine Glucose (UA) Negative (NEGATIVE) Urine Ketones Negative (NEGATIVE) Urine Blood Negative (NEGATIVE) Urine Nitrite Negative (NEGATIVE) Urine Bilirubin Negative (NEGATIVE) Urine Urobilinogen Normal MG/DL (0.0-1.0) Urine Leukocyte Esterase Negative (NEGATIVE) Sodium Level 138 MMOL/L (136-145) Potassium Level 4.4 MMOL/L (3.5-5.1) Chloride Level 101 MMOL/L (98-107) Carbon Dioxide Level 31 MMOL/L (21-32) Anion Gap 6 mmol/L (5-15) Blood Urea Nitrogen 14 mg/dL (7-18) Creatinine 0.8 MG/DL (0.55-1.30) Estimat Glomerular Filtration Rate > 60 mL/min (>60) Glucose Level 92 MG/DL (74-106) Calcium Level 8.6 MG/DL (8.5-10.1) Total Bilirubin 0.2 MG/DL (0.2-1.0) Aspartate Amino Transf (AST/SGOT) 15 U/L (15-37) Alanine Aminotransferase (ALT/SGPT) 14 U/L (12-78) Alkaline Phosphatase 101 U/L (46-116) Total Protein 6.5 G/DL (6.4-8.2) Albumin 3.2 G/DL (3.4-5.0) Globulin 3.3 g/dL Albumin/Globulin Ratio 1.0 (1.0-2.7) Salicylates Level 2.4 ug/mL (2.8-20) Urine Opiates Screen Positive (NEGATIVE) Acetaminophen Level < 2 MCG/ML (10-30) Urine Barbiturates Screen Negative (NEGATIVE) Phencyclidine (PCP) Screen Negative (NEGATIVE) Urine Amphetamines Screen Negative (NEGATIVE) Urine Benzodiazepines Screen Negative (NEGATIVE) Urine Cocaine Screen Negative (NEGATIVE) Urine Marijuana (THC) Screen Negative (NEGATIVE) Serum Alcohol < 3 mg/dL Last Vital Signs Date Time Temp Pulse Resp B/P (MAP) Pulse Ox O2 Delivery O2 Flow Rate FiO2 10/30/18 12:55 98.2 83 13 125/77 99 Nasal Cannula 2.0 Status: improved Disposition: ADMITTED INPATIENT Condition: Serious Referrals: NON PHYSICIAN (PCP) Noel Mojica MD Oct 30, 2018 15:25
[2018-10-30 16:55] VITALS: BP 124/76
[2018-10-30] MEDS ORDERED: LORazepam Inj 2mg/ml 1ml IV PRN (17:00)
[2018-10-30] MEDS ORDERED: Mylanta II UD 30ml ORAL PRN (17:00)
[2018-10-30] MEDS ORDERED: ALBUTEROL2.5 MG/3 M INH (17:43)
[2018-10-30] MEDS ORDERED: ATIVAN1 MG ORAL (17:47)
[2018-10-30] MEDS ORDERED: DOCUSATE SODIU100 MG ORAL (17:49)
[2018-10-30] MEDS ORDERED: CRANBERRY450 M4 PO (17:52)
[2018-10-30] MEDS ORDERED: DULCOLAX10 MG RC (17:54)
[2018-10-30] MEDS ORDERED: FLEET ENEMA133 ML RECTAL (17:56)
--- NOTE | 2018-10-30 17:57 | NUR ---
ED Nurse Note: [facility] CALLED FOR PT TRANSFER. RN NOT AVAILABLE. WILL CALL BACK IN 5 MINUTES.
[2018-10-30] MEDS ORDERED: LOMOTIL TABLET1 EACH ORAL (18:01)
[2018-10-30] MEDS ORDERED: MILK OF MA400 MG/51 ORAL (18:02)
--- NOTE | 2018-10-30 18:07 | NUR ---
ED Nurse Note: [facility] CALLED FOR PT TRANSFER. REPORT GIVEN TO ROBBI NICHOLSON. PT TAKEN UP TO [facility] VIA GURNEY WITH ALL BELONGINGS ACCOMPANIED BY EMT. VSS.
[2018-10-30] MEDS ORDERED: MORPHINE IR15 MG ORAL (18:13)
[2018-10-30] MEDS ORDERED: Dextrose 50% 25ml Syringe IV PRN (18:15)
[2018-10-30] MEDS ORDERED: ANTACID SUSPEN PO (18:23)
[2018-10-30] MEDS ORDERED: CODEINE PO (18:27)
[2018-10-30] MEDS ORDERED: PROMETHAZINE PO (18:27)
--- NOTE | 2018-10-30 18:30 | NUR ---
NURSE NOTES: PT RECEIVED FROM ER PER REPORT OF ER PT ADMITTED FOR INCREASE AGITATION. WAS NOT GIVEN ANXIOLYTIC IN ER . BELONGING AT BEDSIDE. PT ABLE TO VERBALIZE HE INJECTED HIMSELF IN THE NECK. DR PRICE PAGED FOR ORDERS. 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 . PT TALKING TO SELF RAMBLING IS ABLE TO ANSWER DIRECT QUESTIONS.
[2018-10-30] MEDS ORDERED: ACETAMINOPHEN325 M1 ORAL (18:42)
[2018-10-30] MEDS ORDERED: TYLENOL EXTRA500 MG ORAL (18:43)
[2018-10-30] MEDS ORDERED: VALPROIC A250 MG/5 M PO (18:44)
[2018-10-30 20:00] VITALS: BP 120/75
--- NOTE | 2018-10-30 20:00 | NUR ---
NURSE NOTES: Patient received grunting/yelling in bed, appears very anxious. Patient communicates with written language, patient has own pen and papers. Patient keeps getting out of bed. Educated with risk of falls, patient too anxious to understand teachings. Patient moved closer to nursing unit 409 for close monitoring. Yellow socks, Yellow band, bed alarm on. Fall risk sign outside of door. Will continue to monitor.
--- NOTE | 2018-10-30 20:58 | NUR ---
HAND-OFF: Report given to CAM.ROBBI
[2018-10-30] MEDS ORDERED: Miralax 17gm pkt ORAL PRN (21:00)
[2018-10-30] MEDS ORDERED: Zolpidem 5mg tab ORAL PRN (21:00)
--- NOTE | 2018-10-30 21:00 | NUR ---
NURSE NOTES: Patient instructed to use the call light but patient repeatedly yells and repeatedly hits his hand on the table if he wanted something. Patient also refuses to keep hospital gown on, patient noncompliant and has increased agitation when hospital gown is put on patient.
[2018-10-30] MEDS: Topiramate 100mg tab ORAL SCH (21:25)
[2018-10-30] MEDS ORDERED: clonazePAM 0.5mg tab ORAL PRN (22:45)
--- NOTE | 2018-10-30 23:22 | Consultation ---
History of Present Illness General Chief Complaint: General Complaint Present Illness HPI 63 yo male with hx of mmp, schizophrenia, depression who was admitted for weakness and increase agitation. the pt was found lying on the floor of the intermediate. the pt was combative and trowing stuff at staff. the pt is delusional and responds to internal stimuli. the pt is unable to participate and provide any history. no si/hi. Allergies: Coded Allergies: No Known Allergies (Unverified , 02/13/18) Medication History Scheduled Ascorbic Acid* (Ascorbic Acid*), 500 MG ORAL DAILY, (Reported) Cranberry Fruit Concentrate (Cranberry), 900 MG PO TWICE A DAY, (Reported) Famotidine (Famotidine), 20 MG ORAL DAILY, (Reported) Ferrous Sulfate* (Ferrous Sulfate*), 325 MG ORAL DAILY, (Reported) Gabapentin* (Gabapentin*), 300 MG ORAL BID, (Reported) Multivitamins* (Multivitamins*), 1 TAB ORAL DAILY, (Reported) Oxcarbazepine* (Trileptal*), 300 MG PO DAILY, (Reported) Risperidone* (Risperdal*), 6 MG ORAL BEDTIME, (Reported) Topiramate* (Topamax*), 100 MG ORAL TWICE A DAY, (Reported) Valproate Sodium (Valproic Acid), 250 MG PO QHS, (Reported) Scheduled PRN Acetaminophen* (Acetaminophen 325MG Tablet*), 650 MG ORAL Q6H PRN for Mild Pain (Pain Scale 1-3), (Reported) Acetaminophen* (Tylenol Extra Strength*), 1,000 MG ORAL Q6H PRN for Moderate Pain (Pain Scale 4-6), (Reported) Albuterol Sulfate* (Albuterol Sulfate Hhn*), 3 ML INH Q6H PRN for Shortness of Breath, (Reported) Bisacodyl (Dulcolax), 10 MG RC DAILY PRN for Constipation, (Reported) Diphenoxylate Hcl/Atropine (Lomotil Tablet), 1 TAB ORAL EVERY 6 HOURS PRN for Diarrhea, (Reported) Docusate Sodium* (Docusate Sodium*), 100 MG ORAL DAILY PRN for Constipation, ( Reported) Lorazepam* (Ativan*), 1 MG ORAL EVERY 6 HOURS PRN for For Anxiety, (Reported) Mag Hydrox/Aluminum Hyd/Simeth (Antacid Suspension), 10 ML PO EVERY 6 HOURS PRN for UPSET STOMACH, (Reported) Magnesium Hydroxide* (Milk Of Magnesia*), 30 ML ORAL DAILY PRN for Constipation, (Reported) Morphine Sulfate (Morphine Sulfate), 15 MG PO Q4HR PRN for Severe Pain (Pain Scale 7-10), (Reported) Na Phos,M-B/Na Phos,Di-Ba* (Fleet Enema*), 133 ML RECTAL DAILY PRN for Constipation, (Reported) Theophylline Anhydrous (Theophylline), 80 MG PO Q8HR PRN for Shortness of Breath , (Reported) [Phenergen w/ Codeine], 5 ML PO Q4HR PRN for For Cough, (Reported) Patient History Limited by: medical condition History Provided By: Medical Record, PMD Healthcare decision maker Resuscitation status Advanced Directive on File Past Medical/Surgical History Past Medical/Surgical History: (1) Aspiration pneumonia (2) UTI (urinary tract infection) (3) Psychosis (4) COPD (chronic obstructive pulmonary disease) (5) Seizure disorder (6) Malnutrition (7) Agitation (8) Altered mental status (9) At high risk for aspiration (10) Anemia Review of Systems Psychiatric: Reports: anxiety, depressed feelings, emotional problems, hallucinations Physical Exam General Appearance: alert, severe distress, agitated, combative Last 24 Hour Vital Signs Date Time Temp Pulse Resp B/P (MAP) Pulse Ox O2 Delivery O2 Flow Rate FiO2 10/30/18 18:06 98.3 74 18 122/82 98 Room Air 2.0 10/30/18 16:55 98.5 76 16 124/76 98 Nasal Cannula 2.0 10/30/18 14:55 98.4 81 18 116/74 96 Nasal Cannula 2.0 10/30/18 12:55 98.2 83 13 125/77 99 Nasal Cannula 2.0 10/30/18 12:55 83 13 Nasal Cannula 2.0 10/30/18 12:47 97.9 97 18 122/73 90 Nasal Cannula 2.0 Laboratory Tests Test 10/30/18 14:05 White Blood Count 7.3 K/UL (4.8-10.8) Red Blood Count 3.82 M/UL (4.70-6.10) L Hemoglobin 11.4 G/DL (14.2-18.0) L Hematocrit 34.7 % (42.0-52.0) L Mean Corpuscular Volume 91 FL (80-99) Mean Corpuscular Hemoglobin 29.7 PG (27.0-31.0) Mean Corpuscular Hemoglobin Concent 32.7 G/DL (32.0-36.0) Red Cell Distribution Width 14.3 % (11.6-14.8) Platelet Count 158 K/UL (150-450) Mean Platelet Volume 7.0 FL (6.5-10.1) Neutrophils (%) (Auto) 67.6 % (45.0-75.0) Lymphocytes (%) (Auto) 19.1 % (20.0-45.0) L Monocytes (%) (Auto) 10.9 % (1.0-10.0) H Eosinophils (%) (Auto) 1.7 % (0.0-3.0) Basophils (%) (Auto) 0.7 % (0.0-2.0) Urine Color Pale yellow Urine Appearance Clear Urine pH 7 (4.5-8.0) Urine Specific [place] 1.005 (1.005-1.035) Urine Protein Negative (NEGATIVE) Urine Glucose (UA) Negative (NEGATIVE) Urine Ketones Negative (NEGATIVE) Urine Blood Negative (NEGATIVE) Urine Nitrite Negative (NEGATIVE) Urine Bilirubin Negative (NEGATIVE) Urine Urobilinogen Normal MG/DL (0.0-1.0) Urine Leukocyte Esterase Negative (NEGATIVE) Sodium Level 138 MMOL/L (136-145) Potassium Level 4.4 MMOL/L (3.5-5.1) Chloride Level 101 MMOL/L (98-107) Carbon Dioxide Level 31 MMOL/L (21-32) Anion Gap 6 mmol/L (5-15) Blood Urea Nitrogen 14 mg/dL (7-18) Creatinine 0.8 MG/DL (0.55-1.30) Estimat Glomerular Filtration Rate > 60 mL/min (>60) Glucose Level 92 MG/DL (74-106) Calcium Level 8.6 MG/DL (8.5-10.1) Total Bilirubin 0.2 MG/DL (0.2-1.0) Aspartate Amino Transf (AST/SGOT) 15 U/L (15-37) Alanine Aminotransferase (ALT/SGPT) 14 U/L (12-78) Alkaline Phosphatase 101 U/L (46-116) Total Protein 6.5 G/DL (6.4-8.2) Albumin 3.2 G/DL (3.4-5.0) L Globulin 3.3 g/dL Albumin/Globulin Ratio 1.0 (1.0-2.7) Salicylates Level 2.4 ug/mL (2.8-20) L Urine Opiates Screen Positive (NEGATIVE) H Acetaminophen Level < 2 MCG/ML (10-30) L Urine Barbiturates Screen Negative (NEGATIVE) Phencyclidine (PCP) Screen Negative (NEGATIVE) Urine Amphetamines Screen Negative (NEGATIVE) Urine Benzodiazepines Screen Negative (NEGATIVE) Urine Cocaine Screen Negative (NEGATIVE) Urine Marijuana (THC) Screen Negative (NEGATIVE) Serum Alcohol < 3 mg/dL Height (Feet): 5 Height (Inches): 9.00 Weight (Pounds): 135 Medications Current Medications Medications (Trade) Dose Ordered Sig/Carmen Route PRN Reason Start Time Stop Time Status Last Admin Dose Admin Acetaminophen (Tylenol) 650 mg Q4H PRN ORAL T>100.5 10/30/18 16:15 11/29/18 16:14 Al Hydroxide/Mg Hydroxide (Mylanta II) 30 ml Q6H PRN ORAL dyspepsia 10/30/18 17:00 11/29/18 16:59 Dextrose (Dextrose 50%) 25 ml Q30M PRN IV Hypoglycemia 10/30/18 18:15 11/29/18 18:13 Dextrose (Dextrose 50%) 50 ml Q30M PRN IV hypoglycemia 10/30/18 18:15 11/29/18 18:14 Gabapentin (Neurontin) 300 mg BID ORAL 10/30/18 20:00 11/29/18 19:59 10/30/18 21:25 Haloperidol Lactate (Haldol) 5 mg Q6H PRN IM Agitation 10/30/18 23:30 11/29/18 23:29 UNV Lorazepam (Ativan) 2 mg Q6H PRN ORAL For Anxiety 10/30/18 23:30 11/06/18 23:29 UNV Morphine Sulfate (Morphine Sulfate) 1 mg Q4H PRN IVP PAIN 4-10 10/30/18 16:15 11/06/18 16:14 Ondansetron HCl (Zofran) 4 mg Q6H PRN IVP Nausea & Vomiting 10/30/18 16:15 11/29/18 16:14 Oxcarbazepine (Trileptal) 300 mg DAILY ORAL 10/31/18 09:00 11/30/18 08:59 Polyethylene Glycol (Miralax) 17 gm HSPRN PRN ORAL Constipation 10/30/18 21:00 11/29/18 20:59 Quetiapine Fumarate (SEROquel) 50 mg BID ORAL 10/31/18 09:00 11/30/18 08:59 UNV Topiramate (Topamax) 100 mg TWICE A DAY ORAL 10/30/18 20:00 11/29/18 19:59 10/30/18 21:25 Valproic Acid (Depakene) 1,000 mg QHS ORAL 10/31/18 21:00 11/30/18 20:59 UNV Assessment/Plan Problem List: (1) schizophrneia Assessment/Plan seroquel ativan prn haldol prn Meeta Rojas MD Oct 30, 2018 23:22
[2018-10-30] MEDS: Morphine Sulfate 2mg/ml Inj(IV/IM USE ONLY) IVP PRN (23:55)
[2018-10-31] VITALS: BP 122/73
[2018-10-31] MEDS ORDERED: MORPHINE SULFAT30 M4 PO (00:10)
[2018-10-31] MEDS ORDERED: THEOPHYLLI80 MG/153 PO (00:10)
--- NOTE | 2018-10-31 00:30 | History and Physical Report ---
DATE OF ADMISSION: 10/30/2018 TIME SEEN: At 3 p.m. CONSULTANTS: 1. Meeta Quintana M.D. 2. Joana Morton M.D. 3. Watson Zhu M.D. CHIEF COMPLAINT: Confusion, agitation, weakness, and short of breath. BRIEF HISTORY: This is a 63-year-old male from [facility], presented with increased agitation, confusion, and slight short of breath, came to [place] ER, diagnosed with the above, being admitted to medical floor for further treatment. Currently, O2 NC, lethargic, sleepy in bed, and not talking much. REVIEW OF SYSTEMS: Unobtainable. PAST MEDICAL HISTORY: Include agitation, confusion, weakness, COPD, seizure, and malnutrition. PAST SURGICAL HISTORY: Unknown. ALLERGIES: Denies. SOCIAL HISTORY: Unable to obtain secondary to the patient's condition. PHYSICAL EXAMINATION: GENERAL: O2 NC, lethargic in bed, not responding to questions. VITAL SIGNS: Temperature is 98 degrees, pulse 81, respirations 18, and blood pressure 116/74. CARDIOVASCULAR: No murmur. LUNGS: Poor air exchange. ABDOMEN: Bowel sounds distant. EXTREMITIES: No cyanosis or edema. NEUROLOGIC: The patient is flaccid in bed, not following directions. LABORATORY AND DIAGNOSTIC DATA: Labs at this time show H and H 11/34, otherwise CBC is normal. BMP shows albumin 3.2, otherwise BMP is normal. Urinalysis is negative. Urine toxicology is positive for opiates. Salicylate 2.4. MEDICATIONS: Includes just IV fluids. ASSESSMENT: 1. Agitation. 2. Confusion. 3. Short of breath. 4. Weakness. 5. Anemia. 6. COPD. 7. Seizure. 8. Malnutrition. PLAN: 1. O2 and pulmonary treatment. 2. PT and dietary evaluation. 3. CBC and BMP in the morning. 4. Resume home medications. 5. Dr. Quintana, Dr. Morton, and Dr. Zhu to consult. 6. We will continue to follow this patient. Jose Treadwell D.O. DR: STEPHANIE JOB#: [id number] CC:
[2018-10-31] MEDS ORDERED: Promethazine/Codeine 5ml UD ORAL PRN (02:45)
[2018-10-31] MEDS ORDERED: Albuterol ud Inhalation HHN PRN (02:45)
[2018-10-31 06:51] LABS: BASOPHILS % (AUTO) 1.2 % (0.0-2.0); EOSINOPHILS % (AUTO) 2.3 % (0.0-3.0); HEMATOCRIT 37.2 % (42.0-52.0); HEMOGLOBIN 11.9 G/DL (14.2-18.0); LYMPHOCYTES % (AUTO) 23.7 % (20.0-45.0); MEAN CORPUSCULAR VOLUME 92 FL (80-99); MONOCYTES % (AUTO) 9.4 % (1.0-10.0); NEUTROPHILS % (AUTO) 63.4 % (45.0-75.0); PLATELET COUNT 181 K/UL (150-450); RED BLOOD COUNT 4.04 M/UL (4.70-6.10); RED CELL DISTRIBUTION WIDTH 14.1 % (11.6-14.8); WHITE BLOOD COUNT 6.2 K/UL (4.8-10.8)
[2018-10-31 07:16] LABS: ALANINE AMINOTRANSFERASE 16 U/L (12-78); ALBUMIN 3.1 G/DL (3.4-5.0); ALBUMIN/GLOBULIN RATIO 0.9 (1.0-2.7); ALKALINE PHOSPHATASE 107 U/L (46-116); ANION GAP 7 mmol/L (5-15); ASPARTATE AMINO TRANSFERASE 13 U/L (15-37); BILIRUBIN,TOTAL 0.2 MG/DL (0.2-1.0); BLOOD UREA NITROGEN 14 mg/dL (7-18); CALCIUM 8.8 MG/DL (8.5-10.1); CARBON DIOXIDE 28 MMOL/L (21-32); CHLORIDE 105 MMOL/L (98-107); CHOLESTEROL 130 MG/DL (< 200); CREATININE 0.8 MG/DL (0.55-1.30); HDL CHOLESTEROL 64 MG/DL (40-60); POTASSIUM 4.8 MMOL/L (3.5-5.1); SODIUM 140 MMOL/L (136-145); TRIGLYCERIDES 51 MG/DL (30-150)
--- NOTE | 2018-10-31 07:18 | NUR ---
HAND-OFF: Report given to Ruben CULP.
--- NOTE | 2018-10-31 07:30 | NUR ---
Received patient from Shyla RN, patient is up in bed, no distress noted, bed is locked and in lowest position, call light within reach, will continue to monitor.NURSE NOTES:
[2018-10-31 08:00] VITALS: BP 129/82
[2018-10-31] MEDS: Topiramate 100mg tab ORAL SCH (08:11)
[2018-10-31] MEDS: OXcarbazepine 150mg tab ORAL SCH (08:11)
[2018-10-31] MEDS: Haloperidol 5mg/ml Inj IM PRN (09:27)
--- NOTE | 2018-10-31 10:34 | NUR ---
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
[2018-10-31] MEDS ORDERED: clonazePAM 0.5mg tab ORAL PRN (12:45)
[2018-10-31] MEDS: LORazepam 1mg tab ORAL PRN (12:50)
--- NOTE | 2018-10-31 12:53 | Consultation ---
History of Present Illness General Date patient seen: Oct 31, 2018 Chief Complaint: General Complaint Present Illness HPI 63-year-old male presents with psychiatric history, COPD, seizures brought to ED for evaluation of increased agitation for [facility] facility. Per nursing staff patient has been attempting to hit nursing staff. Upon arrival patient not answering any questions. No signs of distress. No other aggravating relieving factors. No other associated symptoms Allergies: Coded Allergies: No Known Allergies (Unverified , 02/13/18) Medication History Scheduled Ascorbic Acid* (Ascorbic Acid*), 500 MG ORAL DAILY, (Reported) Cranberry Fruit Concentrate (Cranberry), 900 MG PO TWICE A DAY, (Reported) Famotidine (Famotidine), 20 MG ORAL DAILY, (Reported) Ferrous Sulfate* (Ferrous Sulfate*), 325 MG ORAL DAILY, (Reported) Gabapentin* (Gabapentin*), 300 MG ORAL BID, (Reported) Multivitamins* (Multivitamins*), 1 TAB ORAL DAILY, (Reported) Oxcarbazepine* (Trileptal*), 300 MG PO DAILY, (Reported) Risperidone* (Risperdal*), 6 MG ORAL BEDTIME, (Reported) Topiramate* (Topamax*), 100 MG ORAL TWICE A DAY, (Reported) Valproate Sodium (Valproic Acid), 250 MG PO QHS, (Reported) Scheduled PRN Acetaminophen* (Acetaminophen 325MG Tablet*), 650 MG ORAL Q6H PRN for Mild Pain (Pain Scale 1-3), (Reported) Acetaminophen* (Tylenol Extra Strength*), 1,000 MG ORAL Q6H PRN for Moderate Pain (Pain Scale 4-6), (Reported) Albuterol Sulfate* (Albuterol Sulfate Hhn*), 3 ML INH Q6H PRN for Shortness of Breath, (Reported) Bisacodyl (Dulcolax), 10 MG RC DAILY PRN for Constipation, (Reported) Diphenoxylate Hcl/Atropine (Lomotil Tablet), 1 TAB ORAL EVERY 6 HOURS PRN for Diarrhea, (Reported) Docusate Sodium* (Docusate Sodium*), 100 MG ORAL DAILY PRN for Constipation, ( Reported) Lorazepam* (Ativan*), 1 MG ORAL EVERY 6 HOURS PRN for For Anxiety, (Reported) Mag Hydrox/Aluminum Hyd/Simeth (Antacid Suspension), 10 ML PO EVERY 6 HOURS PRN for UPSET STOMACH, (Reported) Magnesium Hydroxide* (Milk Of Magnesia*), 30 ML ORAL DAILY PRN for Constipation, (Reported) Morphine Sulfate (Morphine Sulfate), 15 MG PO Q4HR PRN for Severe Pain (Pain Scale 7-10), (Reported) Na Phos,M-B/Na Phos,Di-Ba* (Fleet Enema*), 133 ML RECTAL DAILY PRN for Constipation, (Reported) Theophylline Anhydrous (Theophylline), 80 MG PO Q8HR PRN for Shortness of Breath , (Reported) [Phenergen w/ Codeine], 5 ML PO Q4HR PRN for For Cough, (Reported) Patient History Healthcare decision maker Resuscitation status Advanced Directive on File Past Medical/Surgical History Past Medical/Surgical History: (1) COPD (chronic obstructive pulmonary disease) (2) Seizure disorder (3) Malnutrition (4) Psychosis Review of Systems All Other Systems: negative except mentioned in HPI Physical Exam General Appearance: cachetic Lines, tubes and drains: peripheral, central line HEENT: normocephalic, atraumatic Neck: non-tender, normal alignment Respiratory/Chest: chest wall non-tender, lungs clear Breasts: no masses Cardiovascular/Chest: normal peripheral pulses Last 24 Hour Vital Signs Date Time Temp Pulse Resp B/P (MAP) Pulse Ox O2 Delivery O2 Flow Rate FiO2 10/31/18 08:15 Room Air 10/31/18 08:00 97.1 88 18 129/82 (98) 95 10/31/18 00:25 98.6 10/31/18 00:00 98.6 90 20 122/73 (89) 92 10/30/18 20:00 Room Air 10/30/18 20:00 98.8 92 19 120/75 (90) 90 10/30/18 18:06 98.3 74 18 122/82 98 Room Air 2.0 10/30/18 16:55 98.5 76 16 124/76 98 Nasal Cannula 2.0 10/30/18 14:55 98.4 81 18 116/74 96 Nasal Cannula 2.0 10/30/18 12:55 98.2 83 13 125/77 99 Nasal Cannula 2.0 10/30/18 12:55 83 13 Nasal Cannula 2.0 10/30/18 12:47 97.9 97 18 122/73 90 Nasal Cannula 2.0 Intake and Output 10/30/18 10/31/18 19:00 07:00 Intake Total 500 ml 480 ml Balance 500 ml 480 ml Intake Oral 480 ml IV Total 500 ml # Voids 1 4 Laboratory Tests Test 10/30/18 14:05 10/31/18 05:45 White Blood Count 7.3 K/UL (4.8-10.8) 6.2 K/UL (4.8-10.8) Red Blood Count 3.82 M/UL (4.70-6.10) L 4.04 M/UL (4.70-6.10) L Hemoglobin 11.4 G/DL (14.2-18.0) L 11.9 G/DL (14.2-18.0) L Hematocrit 34.7 % (42.0-52.0) L 37.2 % (42.0-52.0) L Mean Corpuscular Volume 91 FL (80-99) 92 FL (80-99) Mean Corpuscular Hemoglobin 29.7 PG (27.0-31.0) 29.5 PG (27.0-31.0) Mean Corpuscular Hemoglobin Concent 32.7 G/DL (32.0-36.0) 32.0 G/DL (32.0-36.0) Red Cell Distribution Width 14.3 % (11.6-14.8) 14.1 % (11.6-14.8) Platelet Count 158 K/UL (150-450) 181 K/UL (150-450) Mean Platelet Volume 7.0 FL (6.5-10.1) 6.4 FL (6.5-10.1) L Neutrophils (%) (Auto) 67.6 % (45.0-75.0) 63.4 % (45.0-75.0) Lymphocytes (%) (Auto) 19.1 % (20.0-45.0) L 23.7 % (20.0-45.0) Monocytes (%) (Auto) 10.9 % (1.0-10.0) H 9.4 % (1.0-10.0) Eosinophils (%) (Auto) 1.7 % (0.0-3.0) 2.3 % (0.0-3.0) Basophils (%) (Auto) 0.7 % (0.0-2.0) 1.2 % (0.0-2.0) Urine Color Pale yellow Urine Appearance Clear Urine pH 7 (4.5-8.0) Urine Specific Coyle 1.005 (1.005-1.035) Urine Protein Negative (NEGATIVE) Urine Glucose (UA) Negative (NEGATIVE) Urine Ketones Negative (NEGATIVE) Urine Blood Negative (NEGATIVE) Urine Nitrite Negative (NEGATIVE) Urine Bilirubin Negative (NEGATIVE) Urine Urobilinogen Normal MG/DL (0.0-1.0) Urine Leukocyte Esterase Negative (NEGATIVE) Sodium Level 138 MMOL/L (136-145) 140 MMOL/L (136-145) Potassium Level 4.4 MMOL/L (3.5-5.1) 4.8 MMOL/L (3.5-5.1) Chloride Level 101 MMOL/L (98-107) 105 MMOL/L (98-107) Carbon Dioxide Level 31 MMOL/L (21-32) 28 MMOL/L (21-32) Anion Gap 6 mmol/L (5-15) 7 mmol/L (5-15) Blood Urea Nitrogen 14 mg/dL (7-18) 14 mg/dL (7-18) Creatinine 0.8 MG/DL (0.55-1.30) 0.8 MG/DL (0.55-1.30) Estimat Glomerular Filtration Rate > 60 mL/min (>60) > 60 mL/min (>60) Glucose Level 92 MG/DL (74-106) 89 MG/DL (74-106) Calcium Level 8.6 MG/DL (8.5-10.1) 8.8 MG/DL (8.5-10.1) Total Bilirubin 0.2 MG/DL (0.2-1.0) 0.2 MG/DL (0.2-1.0) Aspartate Amino Transf (AST/SGOT) 15 U/L (15-37) 13 U/L (15-37) L Alanine Aminotransferase (ALT/SGPT) 14 U/L (12-78) 16 U/L (12-78) Alkaline Phosphatase 101 U/L (46-116) 107 U/L (46-116) Total Protein 6.5 G/DL (6.4-8.2) 6.6 G/DL (6.4-8.2) Albumin 3.2 G/DL (3.4-5.0) L 3.1 G/DL (3.4-5.0) L Globulin 3.3 g/dL 3.5 g/dL Albumin/Globulin Ratio 1.0 (1.0-2.7) 0.9 (1.0-2.7) L Salicylates Level 2.4 ug/mL (2.8-20) L Urine Opiates Screen Positive (NEGATIVE) H Acetaminophen Level < 2 MCG/ML (10-30) L Urine Barbiturates Screen Negative (NEGATIVE) Phencyclidine (PCP) Screen Negative (NEGATIVE) Urine Amphetamines Screen Negative (NEGATIVE) Urine Benzodiazepines Screen Negative (NEGATIVE) Urine Cocaine Screen Negative (NEGATIVE) Urine Marijuana (THC) Screen Negative (NEGATIVE) Serum Alcohol < 3 mg/dL Triglycerides Level 51 MG/DL (30-150) Cholesterol Level 130 MG/DL (< 200) LDL Cholesterol 55 mg/dL (<100) HDL Cholesterol 64 MG/DL (40-60) H Cholesterol/HDL Ratio 2.0 (3.3-4.4) L Thyroid Stimulating Hormone (TSH) 1.861 uiU/mL (0.358-3.740) Height (Feet): 5 Height (Inches): 9.00 Weight (Pounds): 135 Medications Current Medications Medications (Trade) Dose Ordered Sig/Carmen Route PRN Reason Start Time Stop Time Status Last Admin Dose Admin Acetaminophen (Tylenol) 650 mg Q4H PRN ORAL T>100.5 10/30/18 16:15 11/29/18 16:14 Al Hydroxide/Mg Hydroxide (Mylanta II) 30 ml Q6H PRN ORAL dyspepsia 10/30/18 17:00 11/29/18 16:59 10/31/18 08:10 Albuterol Sulfate (Proventil) 2.5 mg Q6H PRN HHN Shortness of Breath 10/31/18 02:45 11/05/18 02:44 Clonazepam (KlonoPIN) 0.5 mg Q4HR PRN ORAL For Anxiety 10/31/18 12:45 11/07/18 12:44 UNV Dextrose (Dextrose 50%) 25 ml Q30M PRN IV Hypoglycemia 10/30/18 18:15 11/29/18 18:13 Dextrose (Dextrose 50%) 50 ml Q30M PRN IV hypoglycemia 10/30/18 18:15 11/29/18 18:14 Gabapentin (Neurontin) 300 mg BID ORAL 10/30/18 20:00 11/29/18 19:59 10/31/18 08:10 Haloperidol Lactate (Haldol) 5 mg Q6H PRN IM Agitation 10/30/18 23:30 11/29/18 23:29 10/31/18 09:27 Lorazepam (Ativan) 2 mg Q6H PRN ORAL For Anxiety 10/30/18 23:30 11/06/18 23:29 Morphine Sulfate (Morphine Sulfate) 1 mg Q4H PRN IVP PAIN 4-10 10/30/18 16:15 11/06/18 16:14 10/30/18 23:55 Olanzapine (ZyPREXA) 25 mg BID ORAL 10/31/18 18:00 11/30/18 17:59 UNV Ondansetron HCl (Zofran) 4 mg Q6H PRN IVP Nausea & Vomiting 10/30/18 16:15 11/29/18 16:14 Oxcarbazepine (Trileptal) 300 mg DAILY ORAL 10/31/18 09:00 11/30/18 08:59 10/31/18 08:11 Polyethylene Glycol (Miralax) 17 gm HSPRN PRN ORAL Constipation 10/30/18 21:00 11/29/18 20:59 Promethazine HCl/ Codeine (Phenergan with Codeine) 5 ml Q4H PRN ORAL For Cough 10/31/18 02:45 11/30/18 02:44 Quetiapine Fumarate (SEROquel) 25 mg Q12HR ORAL 10/31/18 12:45 11/30/18 12:44 UNV Quetiapine Fumarate (SEROquel) 50 mg BID ORAL 10/31/18 09:00 11/30/18 08:59 10/31/18 08:10 Topiramate (Topamax) 100 mg TWICE A DAY ORAL 10/30/18 20:00 11/29/18 19:59 10/31/18 08:11 Valproic Acid (Depakene) 1,000 mg QHS ORAL 10/31/18 21:00 11/30/18 20:59 Assessment/Plan Problem List: (1) Altered mental status ICD Codes: R41.82 - Altered mental status, unspecified SNOMED: 218162092 Qualifiers: Qualified Codes: R41.82 - Altered mental status, unspecified (2) COPD (chronic obstructive pulmonary disease) ICD Codes: J44.9 - Chronic obstructive pulmonary disease, unspecified SNOMED: 96366870 (3) Agitation ICD Codes: R45.1 - Restlessness and agitation SNOMED: 769994215 (4) At high risk for aspiration ICD Codes: Z91.89 - Other specified personal risk factors, not elsewhere classified SNOMED: 974982259 (5) Psychosis ICD Codes: F29 - Unspecified psychosis not due to a substance or known physiological condition SNOMED: 94276750 Qualifiers: Qualified Codes: F29 - Unspecified psychosis not due to a substance or known physiological condition (6) Seizure disorder ICD Codes: G40.909 - Epilepsy, unspecified, not intractable, without status epilepticus SNOMED: 860083076 (7) Malnutrition ICD Codes: E46 - Unspecified protein-calorie malnutrition SNOMED: 95833726 Assessment/Plan Seroquel Klonipin prn respiratory treatment psych evaluation dvt prophylaxis. Joana Morton MD Oct 31, 2018 12:53
--- NOTE | 2018-10-31 13:50 | NUR ---
Social Service Note GRZEGORZ spoke with patient's cousin Marguerite Rivero [phone] and discussed the POLST she completed 07/2018. Marguerite states she supports patient's wishes he has verbalized to her. POLST was not signed by SNF MD. Marguerite states DNR/DNI, comfort focused care, no artificial means of nutrition is patient's wishes. GRZEGORZ informed charge nurse who will contact MD for code status orders. Patient has been a resident of [facility] since 2018. Patient is anticipated to return to facility once medically appropriate.
--- NOTE | 2018-10-31 14:19 | General Progress Note ---
Assessment/Plan Problem List: (1) Anemia ICD Codes: D64.9 - Anemia, unspecified SNOMED: 183288809 (2) Psychosis ICD Codes: F29 - Unspecified psychosis not due to a substance or known physiological condition SNOMED: 52227232 Qualifiers: Qualified Codes: F29 - Unspecified psychosis not due to a substance or known physiological condition (3) Seizure disorder ICD Codes: G40.909 - Epilepsy, unspecified, not intractable, without status epilepticus SNOMED: 686036171 (4) Malnutrition ICD Codes: E46 - Unspecified protein-calorie malnutrition SNOMED: 20860818 (5) Agitation ICD Codes: R45.1 - Restlessness and agitation SNOMED: 634954423 (6) Altered mental status ICD Codes: R41.82 - Altered mental status, unspecified SNOMED: 628332854 Qualifiers: Qualified Codes: R41.82 - Altered mental status, unspecified (7) COPD (chronic obstructive pulmonary disease) ICD Codes: J44.9 - Chronic obstructive pulmonary disease, unspecified SNOMED: 64659720 Status: unchanged Assessment/Plan o2 pulm tx pt diet cbc bmp am dc plan snf Subjective Constitutional: Reports: weakness Allergies: Coded Allergies: No Known Allergies (Unverified , 02/13/18) All Systems: reviewed and negative except above Subjective sleepy calm Objective Last 24 Hour Vital Signs Date Time Temp Pulse Resp B/P (MAP) Pulse Ox O2 Delivery O2 Flow Rate FiO2 10/31/18 08:15 Room Air 10/31/18 08:00 97.1 88 18 129/82 (98) 95 10/31/18 00:25 98.6 10/31/18 00:00 98.6 90 20 122/73 (89) 92 10/30/18 20:00 Room Air 10/30/18 20:00 98.8 92 19 120/75 (90) 90 10/30/18 18:06 98.3 74 18 122/82 98 Room Air 2.0 10/30/18 16:55 98.5 76 16 124/76 98 Nasal Cannula 2.0 10/30/18 14:55 98.4 81 18 116/74 96 Nasal Cannula 2.0 Intake and Output 10/30/18 10/31/18 19:00 07:00 Intake Total 500 ml 480 ml Balance 500 ml 480 ml Intake Oral 480 ml IV Total 500 ml # Voids 1 4 Laboratory Tests 10/31/18 05:45: White Blood Count 6.2, Red Blood Count 4.04L, Hemoglobin 11.9L, Hematocrit 37.2L , Mean Corpuscular Volume 92, Mean Corpuscular Hemoglobin 29.5, Mean Corpuscular Hemoglobin Concent 32.0, Red Cell Distribution Width 14.1, Platelet Count 181, Mean Platelet Volume 6.4L, Neutrophils (%) (Auto) 63.4, Lymphocytes ( %) (Auto) 23.7, Monocytes (%) (Auto) 9.4, Eosinophils (%) (Auto) 2.3, Basophils (%) (Auto) 1.2, Sodium Level 140, Potassium Level 4.8, Chloride Level 105, Carbon Dioxide Level 28, Anion Gap 7, Blood Urea Nitrogen 14, Creatinine 0.8, Estimat Glomerular Filtration Rate > 60, Glucose Level 89, Calcium Level 8.8, Total Bilirubin 0.2, Aspartate Amino Transf (AST/SGOT) 13L, Alanine Aminotransferase (ALT/SGPT) 16, Alkaline Phosphatase 107, Total Protein 6.6, Albumin 3.1L, Globulin 3.5, Albumin/Globulin Ratio 0.9L, Triglycerides Level 51 , Cholesterol Level 130, LDL Cholesterol 55, HDL Cholesterol 64H, Cholesterol/ HDL Ratio 2.0L, Thyroid Stimulating Hormone (TSH) 1.861 Height (Feet): 5 Height (Inches): 9.00 Weight (Pounds): 135 General Appearance: lethargic EENT: normal ENT inspection Neck: normal alignment Cardiovascular: normal peripheral pulses, normal rate, regular rhythm Respiratory/Chest: chest wall non-tender, lungs clear, normal breath sounds Abdomen: normal bowel sounds, non tender, soft Extremities: normal inspection Edema: no edema noted Arm (L), no edema noted Arm (R), no edema noted Leg (L), no edema noted Leg (R), no edema noted Pedal (L), no edema noted Pedal (R), no edema noted Generalized Neurologic: responsive, motor weakness Skin: normal pigmentation, warm/dry Jose Treadwell DO Oct 31, 2018 14:19
--- NOTE | 2018-10-31 15:49 | General Progress Note ---
Assessment/Plan Problem List: (1) schizophrneia Assessment/Plan increase seroquel ativan prn haldol prn depakote dc topomax haldol dec Subjective Neurologic/Psychiatric: Reports: anxiety, depressed, emotional problems Allergies: Coded Allergies: No Known Allergies (Unverified , 02/13/18) Objective Last 24 Hour Vital Signs Date Time Temp Pulse Resp B/P (MAP) Pulse Ox O2 Delivery O2 Flow Rate FiO2 10/31/18 08:15 Room Air 10/31/18 08:00 97.1 88 18 129/82 (98) 95 10/31/18 00:25 98.6 10/31/18 00:00 98.6 90 20 122/73 (89) 92 10/30/18 20:00 Room Air 10/30/18 20:00 98.8 92 19 120/75 (90) 90 10/30/18 18:06 98.3 74 18 122/82 98 Room Air 2.0 10/30/18 16:55 98.5 76 16 124/76 98 Nasal Cannula 2.0 Intake and Output 10/30/18 10/31/18 19:00 07:00 Intake Total 500 ml 480 ml Balance 500 ml 480 ml Intake Oral 480 ml IV Total 500 ml # Voids 1 4 Laboratory Tests 10/31/18 05:45: White Blood Count 6.2, Red Blood Count 4.04L, Hemoglobin 11.9L, Hematocrit 37.2L , Mean Corpuscular Volume 92, Mean Corpuscular Hemoglobin 29.5, Mean Corpuscular Hemoglobin Concent 32.0, Red Cell Distribution Width 14.1, Platelet Count 181, Mean Platelet Volume 6.4L, Neutrophils (%) (Auto) 63.4, Lymphocytes ( %) (Auto) 23.7, Monocytes (%) (Auto) 9.4, Eosinophils (%) (Auto) 2.3, Basophils (%) (Auto) 1.2, Sodium Level 140, Potassium Level 4.8, Chloride Level 105, Carbon Dioxide Level 28, Anion Gap 7, Blood Urea Nitrogen 14, Creatinine 0.8, Estimat Glomerular Filtration Rate > 60, Glucose Level 89, Calcium Level 8.8, Total Bilirubin 0.2, Aspartate Amino Transf (AST/SGOT) 13L, Alanine Aminotransferase (ALT/SGPT) 16, Alkaline Phosphatase 107, Total Protein 6.6, Albumin 3.1L, Globulin 3.5, Albumin/Globulin Ratio 0.9L, Triglycerides Level 51 , Cholesterol Level 130, LDL Cholesterol 55, HDL Cholesterol 64H, Cholesterol/ HDL Ratio 2.0L, Thyroid Stimulating Hormone (TSH) 1.861 Height (Feet): 5 Height (Inches): 9.00 Weight (Pounds): 135 General Appearance: WD/WN, alert, confused, severe distress, agitated, thin Meeta Quintana MD Oct 31, 2018 15:49
--- NOTE | 2018-10-31 16:22 | NUR ---
P.T Note: P.T evaluation completed. Based on P.T evaluation, patient already at baseline function : Independent/supervision in all basic functional mobilities. Current functional status does not warrant skilled P.T service at this time. Recommend DC to prior living arrangement. DC P.T services. Thank you for this referral.
[2018-10-31] MEDS ORDERED: Haloperidol Decanoate 50mg Inj IM SCH (17:00)
[2018-10-31] MEDS ORDERED: OLANZapine 10mg tab ORAL SCH (18:00)
--- NOTE | 2018-10-31 19:18 | NUR ---
HAND-OFF: Report given to Hollie CULP.
--- NOTE | 2018-10-31 19:27 | NUR ---
NURSE NOTES: Received patient in bed, asleep, no acute distress noted, call light is within reach, bed is locked, alarm is on, bed in lowest position. Will continue to monitor for safety and comfort.
[2018-10-31 20:00] VITALS: BP 138/84
[2018-11-01] VITALS: BP 112/86
[2018-11-01 04:00] VITALS: BP 116/80
--- NOTE | 2018-11-01 06:04 | NUR ---
NURSE NOTES: Wasted 2 mg/ml of Morphine sulfate, was not able to administer to the patient , patient was combative and agitated towards RN.
[2018-11-01 07:02] LABS: BASOPHILS % (AUTO) 1.1 % (0.0-2.0); HEMATOCRIT 38.6 % (42.0-52.0); HEMOGLOBIN 12.3 G/DL (14.2-18.0); LYMPHOCYTES % (AUTO) 20.5 % (20.0-45.0); MEAN CORPUSCULAR VOLUME 91 FL (80-99); MONOCYTES % (AUTO) 6.2 % (1.0-10.0); NEUTROPHILS % (AUTO) 71.2 % (45.0-75.0); PLATELET COUNT 188 K/UL (150-450); RED BLOOD COUNT 4.22 M/UL (4.70-6.10); RED CELL DISTRIBUTION WIDTH 13.8 % (11.6-14.8); WHITE BLOOD COUNT 9.8 K/UL (4.8-10.8)
--- NOTE | 2018-11-01 07:25 | NUR ---
nurse notes received patient in bed, patient awake, alert, confused combative, reality orientation provided, HL patent , on fall precaution observed kept clean dry and intact, needs met and anticipated kerwin colon
[2018-11-01 07:26] LABS: ANION GAP 10 mmol/L (5-15); BLOOD UREA NITROGEN 22 mg/dL (7-18); CALCIUM 9.2 MG/DL (8.5-10.1); CARBON DIOXIDE 25 MMOL/L (21-32); CHLORIDE 105 MMOL/L (98-107); CREATININE 0.9 MG/DL (0.55-1.30); POTASSIUM 4.3 MMOL/L (3.5-5.1); SODIUM 140 MMOL/L (136-145)
--- NOTE | 2018-11-01 07:38 | NUR ---
HAND-OFF: Report given to Eileen CULP.
[2018-11-01 08:00] VITALS: BP 144/76
[2018-11-01] MEDS: OXcarbazepine 150mg tab ORAL SCH (08:15)
[2018-11-01] MEDS: LORazepam 1mg tab ORAL PRN ×2 (08:19→16:37)
--- NOTE | 2018-11-01 08:19 | NUR ---
nurse notes patient very anxious and agitated throwing papers on floor ativan given as ordered kerwin colon
[2018-11-01 12:13] VITALS: BP 132/63
--- NOTE | 2018-11-01 12:53 | Pulmonology Progress Note ---
Assessment/Plan Problems: (1) Altered mental status (2) COPD (chronic obstructive pulmonary disease) (3) Agitation (4) At high risk for aspiration (5) Psychosis (6) Seizure disorder (7) Malnutrition Assessment/Plan calmer today symptomatic treatment titrate fio2 seizure precaution f/u consultants recommendation dvt prophylaxis Subjective ROS Limited/Unobtainable: No Constitutional: Reports: no symptoms HEENT: Repors: no symptoms Respiratory: Reports: no symptoms Allergies: Coded Allergies: No Known Allergies (Unverified , 02/13/18) Objective Last 24 Hour Vital Signs Date Time Temp Pulse Resp B/P (MAP) Pulse Ox O2 Delivery O2 Flow Rate FiO2 11/01/18 12:13 97.5 99 18 132/63 (86) 11/01/18 08:00 Room Air 11/01/18 08:00 97.5 73 18 144/76 (98) 11/01/18 04:00 99.4 97 19 116/80 (92) 11/01/18 00:00 100.5 98 19 112/86 (95) 10/31/18 21:39 94 20 10/31/18 21:00 Room Air 10/31/18 20:00 99.5 99 18 138/84 (102) Intake and Output 10/31/18 11/01/18 18:59 06:59 Intake Total 880 ml Output Total 3 ml Balance 880 ml -3 ml Intake Oral 880 ml Output Urine Total 3 ml # Voids 8 Objective General Appearance: combative, cachetic Lines, tubes and drains: peripheral HEENT: normocephalic, atraumatic Neck: non-tender, normal alignment Respiratory/Chest: chest wall non-tender, lungs clear Cardiovascular/Chest: normal rate Abdomen: normal bowel sounds, soft Genitourinary/Rectal: normal genital exam Extremities: normal range of motion Microbiology Date/Time Source Procedure Growth Status 10/30/18 14:20 Nasal Nares MRSA Culture - Final NO METHICILLIN RESISTANT STAPH AUREUS... Complete 10/30/18 14:20 Rectum VRE Culture - Final NO VANCOMYCIN RESISTANT ENTEROCOCCUS ... Complete 10/30/18 14:20 Rectum - Final NO CARBAPENEM-RESISTANT ENTEROBACTERI... Complete Laboratory Tests 11/01/18 05:40: White Blood Count 9.8#, Red Blood Count 4.22L, Hemoglobin 12.3L, Hematocrit 38.6L, Mean Corpuscular Volume 91, Mean Corpuscular Hemoglobin 29.3, Mean Corpuscular Hemoglobin Concent 32.0, Red Cell Distribution Width 13.8, Platelet Count 188, Mean Platelet Volume 5.6L, Neutrophils (%) (Auto) 71.2, Lymphocytes ( %) (Auto) 20.5, Monocytes (%) (Auto) 6.2, Eosinophils (%) (Auto) 1.0, Basophils (%) (Auto) 1.1, Sodium Level 140, Potassium Level 4.3, Chloride Level 105, Carbon Dioxide Level 25, Anion Gap 10, Blood Urea Nitrogen 22H, Creatinine 0.9, Estimat Glomerular Filtration Rate > 60, Glucose Level 106, Calcium Level 9.2 Current Medications Medications (Trade) Dose Ordered Sig/Carmen Route PRN Reason Start Time Stop Time Status Last Admin Dose Admin Acetaminophen (Tylenol) 650 mg Q4H PRN ORAL T>100.5 10/30/18 16:15 11/29/18 16:14 Al Hydroxide/Mg Hydroxide (Mylanta II) 30 ml Q6H PRN ORAL dyspepsia 10/30/18 17:00 11/29/18 16:59 10/31/18 08:10 Albuterol Sulfate (Proventil) 2.5 mg Q6H PRN HHN Shortness of Breath 10/31/18 02:45 11/05/18 02:44 Dextrose (Dextrose 50%) 25 ml Q30M PRN IV Hypoglycemia 10/30/18 18:15 11/29/18 18:13 Dextrose (Dextrose 50%) 50 ml Q30M PRN IV hypoglycemia 10/30/18 18:15 11/29/18 18:14 Gabapentin (Neurontin) 300 mg BID ORAL 10/30/18 20:00 11/29/18 19:59 11/01/18 08:14 Haloperidol Lactate (Haldol) 5 mg Q6H PRN IM Agitation 10/30/18 23:30 11/29/18 23:29 10/31/18 09:27 Lorazepam (Ativan) 2 mg Q6H PRN ORAL For Anxiety 10/30/18 23:30 11/06/18 23:29 11/01/18 08:19 Morphine Sulfate (Morphine Sulfate) 1 mg Q4H PRN IVP PAIN 4-10 10/30/18 16:15 11/06/18 16:14 10/30/18 23:55 Ondansetron HCl (Zofran) 4 mg Q6H PRN IVP Nausea & Vomiting 10/30/18 16:15 11/29/18 16:14 Oxcarbazepine (Trileptal) 300 mg DAILY ORAL 10/31/18 09:00 11/30/18 08:59 11/01/18 08:15 Polyethylene Glycol (Miralax) 17 gm HSPRN PRN ORAL Constipation 10/30/18 21:00 11/29/18 20:59 Promethazine HCl/ Codeine (Phenergan with Codeine) 5 ml Q4H PRN ORAL For Cough 10/31/18 02:45 11/30/18 02:44 Quetiapine Fumarate (SEROquel) 50 mg TID ORAL 10/31/18 18:00 11/30/18 17:59 11/01/18 12:25 Valproic Acid (Depakene) 1,000 mg QHS ORAL 10/31/18 21:00 11/30/18 20:59 10/31/18 21:12 Joana Morton MD Nov 01, 2018 12:53
--- NOTE | 2018-11-01 14:42 | General Progress Note ---
Assessment/Plan Problem List: (1) Anemia ICD Codes: D64.9 - Anemia, unspecified SNOMED: 585577650 (2) Psychosis ICD Codes: F29 - Unspecified psychosis not due to a substance or known physiological condition SNOMED: 51084516 Qualifiers: Qualified Codes: F29 - Unspecified psychosis not due to a substance or known physiological condition (3) Seizure disorder ICD Codes: G40.909 - Epilepsy, unspecified, not intractable, without status epilepticus SNOMED: 547121535 (4) Malnutrition ICD Codes: E46 - Unspecified protein-calorie malnutrition SNOMED: 23436082 (5) Agitation ICD Codes: R45.1 - Restlessness and agitation SNOMED: 326963450 (6) Altered mental status ICD Codes: R41.82 - Altered mental status, unspecified SNOMED: 794420054 Qualifiers: Qualified Codes: R41.82 - Altered mental status, unspecified (7) COPD (chronic obstructive pulmonary disease) ICD Codes: J44.9 - Chronic obstructive pulmonary disease, unspecified SNOMED: 73089977 Status: stable, progressing Assessment/Plan o2 pulm tx pt diet cbc bmp am dc plan snf Subjective Constitutional: Reports: weakness Allergies: Coded Allergies: No Known Allergies (Unverified , 02/13/18) All Systems: reviewed and negative except above Subjective sleepy calm Objective Last 24 Hour Vital Signs Date Time Temp Pulse Resp B/P (MAP) Pulse Ox O2 Delivery O2 Flow Rate FiO2 11/01/18 12:13 97.5 99 18 132/63 (86) 11/01/18 08:00 Room Air 11/01/18 08:00 97.5 73 18 144/76 (98) 11/01/18 04:00 99.4 97 19 116/80 (92) 11/01/18 00:00 100.5 98 19 112/86 (95) 10/31/18 21:39 94 20 10/31/18 21:00 Room Air 10/31/18 20:00 99.5 99 18 138/84 (102) Intake and Output 10/31/18 11/01/18 19:00 07:00 Intake Total 880 ml Output Total 3 ml Balance 880 ml -3 ml Intake Oral 880 ml Output Urine Total 3 ml # Voids 8 Laboratory Tests 11/01/18 05:40: White Blood Count 9.8#, Red Blood Count 4.22L, Hemoglobin 12.3L, Hematocrit 38.6L, Mean Corpuscular Volume 91, Mean Corpuscular Hemoglobin 29.3, Mean Corpuscular Hemoglobin Concent 32.0, Red Cell Distribution Width 13.8, Platelet Count 188, Mean Platelet Volume 5.6L, Neutrophils (%) (Auto) 71.2, Lymphocytes ( %) (Auto) 20.5, Monocytes (%) (Auto) 6.2, Eosinophils (%) (Auto) 1.0, Basophils (%) (Auto) 1.1, Sodium Level 140, Potassium Level 4.3, Chloride Level 105, Carbon Dioxide Level 25, Anion Gap 10, Blood Urea Nitrogen 22H, Creatinine 0.9, Estimat Glomerular Filtration Rate > 60, Glucose Level 106, Calcium Level 9.2 Height (Feet): 5 Height (Inches): 9.00 Weight (Pounds): 135 General Appearance: lethargic EENT: normal ENT inspection Neck: normal alignment Cardiovascular: normal peripheral pulses, normal rate, regular rhythm Respiratory/Chest: chest wall non-tender, lungs clear, normal breath sounds Abdomen: normal bowel sounds, non tender, soft Extremities: normal inspection Edema: no edema noted Arm (L), no edema noted Arm (R), no edema noted Leg (L), no edema noted Leg (R), no edema noted Pedal (L), no edema noted Pedal (R), no edema noted Generalized Neurologic: motor weakness Skin: normal pigmentation, warm/dry Jose Treadwell DO Nov 01, 2018 14:42
[2018-11-01 16:00] VITALS: BP 128/69
[2018-11-01] MEDS: Morphine Sulfate 2mg/ml Inj(IV/IM USE ONLY) IVP PRN (18:44)
--- NOTE | 2018-11-01 19:15 | NUR ---
NURSE NOTES: Received patient on bed sleeping, no s/s of any distress, Bed in low position and locked, call light within reach, will continue to monitor.
--- NOTE | 2018-11-01 19:54 | NUR ---
HAND-OFF: Report given to ROBBI OBREGON RN.
[2018-11-01 20:00] VITALS: BP 111/76
--- NOTE | 2018-11-01 21:51 | Physician Query ---
--------- THIS DOCUMENT IS A PERMANENT PART OF THE MEDICAL RECORD --------- PLEASE COMPLETE DOCUMENT BEFORE SIGNING Dear Dr. Morton Date: 11/01/2018 Software Development Manager/CDS Name: Ambreenyosefshane Meyers Exercise your independent professional judgment when responding to query. Question asked do not imply a particular answer is desired/expected. Clinical Documentation States: "Altered Mental Status" documented in the medical record Please specify the cause of Altered mental status: [ x] Metabolic Encephalopathy [ ] Toxic Encephalopathy [ ] Toxic - Metabolic Encephalopathy [ ] Progressive Encephalopathy [ ] Encephalopathy, Other [ ] Other: [ ] Not Applicable Condition Present on Admission: [ x ] Yes [ ] No [ ] Clinically Undeterminable Please also document in your Progress Notes and/or Discharge Summary and indicate if the condition was present on admission. Physician signature Date MTDD
--- NOTE | 2018-11-01 23:49 | General Progress Note ---
Assessment/Plan Problem List: (1) schizophrneia Status: stable, progressing Assessment/Plan increase seroquel ativan prn haldol prn depakote dc topomax haldol dec Subjective Neurologic/Psychiatric: Reports: anxiety, depressed, emotional problems Allergies: Coded Allergies: No Known Allergies (Unverified , 02/13/18) Subjective the pt was calmer less agitated Objective Last 24 Hour Vital Signs Date Time Temp Pulse Resp B/P (MAP) Pulse Ox O2 Delivery O2 Flow Rate FiO2 11/01/18 21:00 Room Air 11/01/18 20:28 Room Air 11/01/18 20:00 98.2 71 18 111/76 (88) 94 11/01/18 16:00 97.7 97 20 128/69 (88) 11/01/18 12:13 97.5 99 18 132/63 (86) 11/01/18 08:00 Room Air 11/01/18 08:00 97.5 73 18 144/76 (98) 11/01/18 04:00 99.4 97 19 116/80 (92) 11/01/18 00:00 100.5 98 19 112/86 (95) Intake and Output 10/31/18 11/01/18 19:00 07:00 Intake Total 880 ml Output Total 3 ml Balance 880 ml -3 ml Intake Oral 880 ml Output Urine Total 3 ml # Voids 8 Laboratory Tests 11/01/18 05:40: White Blood Count 9.8#, Red Blood Count 4.22L, Hemoglobin 12.3L, Hematocrit 38.6L, Mean Corpuscular Volume 91, Mean Corpuscular Hemoglobin 29.3, Mean Corpuscular Hemoglobin Concent 32.0, Red Cell Distribution Width 13.8, Platelet Count 188, Mean Platelet Volume 5.6L, Neutrophils (%) (Auto) 71.2, Lymphocytes ( %) (Auto) 20.5, Monocytes (%) (Auto) 6.2, Eosinophils (%) (Auto) 1.0, Basophils (%) (Auto) 1.1, Sodium Level 140, Potassium Level 4.3, Chloride Level 105, Carbon Dioxide Level 25, Anion Gap 10, Blood Urea Nitrogen 22H, Creatinine 0.9, Estimat Glomerular Filtration Rate > 60, Glucose Level 106, Calcium Level 9.2 Height (Feet): 5 Height (Inches): 9.00 Weight (Pounds): 135 General Appearance: alert, confused, thin Meeta Quintana MD Nov 01, 2018 23:49
[2018-11-02] VITALS: BP 118/75
[2018-11-02] MEDS: LORazepam 1mg tab ORAL PRN ×4 (01:01→21:57)
[2018-11-02 04:00] VITALS: BP 119/83
[2018-11-02] MEDS: Morphine Sulfate 2mg/ml Inj(IV/IM USE ONLY) IVP PRN (05:09)
--- NOTE | 2018-11-02 07:15 | NUR ---
HAND-OFF: Report given to Eileen CULP.
[2018-11-02 07:59] LABS: BASOPHILS % (AUTO) 0.9 % (0.0-2.0); EOSINOPHILS % (AUTO) 1.2 % (0.0-3.0); HEMATOCRIT 37.1 % (42.0-52.0); HEMOGLOBIN 12.2 G/DL (14.2-18.0); LYMPHOCYTES % (AUTO) 16.6 % (20.0-45.0); MEAN CORPUSCULAR VOLUME 90 FL (80-99); NEUTROPHILS % (AUTO) 75.3 % (45.0-75.0); PLATELET COUNT 179 K/UL (150-450); RED CELL DISTRIBUTION WIDTH 13.5 % (11.6-14.8); WHITE BLOOD COUNT 7.9 K/UL (4.8-10.8)
[2018-11-02 08:00] VITALS: BP 117/83
[2018-11-02 08:17] LABS: ANION GAP 11 mmol/L (5-15); BLOOD UREA NITROGEN 20 mg/dL (7-18); CALCIUM 8.6 MG/DL (8.5-10.1); CARBON DIOXIDE 26 MMOL/L (21-32); CHLORIDE 102 MMOL/L (98-107); CREATININE 0.7 MG/DL (0.55-1.30); POTASSIUM 3.8 MMOL/L (3.5-5.1); SODIUM 139 MMOL/L (136-145)
[2018-11-02] MEDS: OXcarbazepine 150mg tab ORAL SCH (08:17)
[2018-11-02 12:20] VITALS: BP 118/73
--- NOTE | 2018-11-02 12:49 | Pulmonology Progress Note ---
Assessment/Plan Problems: (1) Altered mental status (2) COPD (chronic obstructive pulmonary disease) (3) Agitation (4) At high risk for aspiration (5) Psychosis (6) Seizure disorder (7) Malnutrition Assessment/Plan calmer today symptomatic treatment titrate fio2 seizure precaution f/u consultants recommendation dvt prophylaxis dc planning Subjective ROS Limited/Unobtainable: No Constitutional: Reports: no symptoms HEENT: Repors: no symptoms Allergies: Coded Allergies: No Known Allergies (Unverified , 02/13/18) Objective Last 24 Hour Vital Signs Date Time Temp Pulse Resp B/P (MAP) Pulse Ox O2 Delivery O2 Flow Rate FiO2 11/02/18 12:20 98.0 87 18 118/73 (88) 94 11/02/18 08:10 Room Air 11/02/18 08:00 98.4 100 17 117/83 (94) 94 11/02/18 04:00 98.7 100 20 119/83 (95) 95 11/02/18 00:00 98.1 90 20 118/75 (89) 92 11/01/18 21:00 Room Air 11/01/18 20:28 Room Air 11/01/18 20:00 98.2 71 18 111/76 (88) 94 11/01/18 16:00 97.7 97 20 128/69 (88) Intake and Output 11/01/18 11/02/18 18:59 06:59 Intake Total 960 ml Balance 960 ml Intake Oral 960 ml # Voids 4 3 # Bowel Movements 2 Objective General Appearance: combative, cachetic Lines, tubes and drains: peripheral HEENT: normocephalic, atraumatic Neck: non-tender, normal alignment Respiratory/Chest: chest wall non-tender, lungs clear Cardiovascular/Chest: normal rate Abdomen: normal bowel sounds, soft Genitourinary/Rectal: normal genital exam Extremities: normal range of motion Microbiology Date/Time Source Procedure Growth Status 10/30/18 14:20 Nasal Nares MRSA Culture - Final NO METHICILLIN RESISTANT STAPH AUREUS... Complete 10/30/18 14:20 Rectum VRE Culture - Final NO VANCOMYCIN RESISTANT ENTEROCOCCUS ... Complete 10/30/18 14:20 Rectum - Final NO CARBAPENEM-RESISTANT ENTEROBACTERI... Complete Laboratory Tests 11/02/18 05:47: White Blood Count 7.9, Red Blood Count 4.10L, Hemoglobin 12.2L, Hematocrit 37.1L , Mean Corpuscular Volume 90, Mean Corpuscular Hemoglobin 29.7, Mean Corpuscular Hemoglobin Concent 32.9, Red Cell Distribution Width 13.5, Platelet Count 179, Mean Platelet Volume 5.0L, Neutrophils (%) (Auto) 75.3H, Lymphocytes (%) (Auto) 16.6L, Monocytes (%) (Auto) 6.0, Eosinophils (%) (Auto) 1.2, Basophils (%) (Auto) 0.9, Sodium Level 139, Potassium Level 3.8, Chloride Level 102, Carbon Dioxide Level 26, Anion Gap 11, Blood Urea Nitrogen 20H, Creatinine 0.7, Estimat Glomerular Filtration Rate > 60, Glucose Level 131H, Calcium Level 8.6 Current Medications Medications (Trade) Dose Ordered Sig/Carmen Route PRN Reason Start Time Stop Time Status Last Admin Dose Admin Acetaminophen (Tylenol) 650 mg Q4H PRN ORAL T>100.5 10/30/18 16:15 11/29/18 16:14 Al Hydroxide/Mg Hydroxide (Mylanta II) 30 ml Q6H PRN ORAL dyspepsia 10/30/18 17:00 11/29/18 16:59 10/31/18 08:10 Albuterol Sulfate (Proventil) 2.5 mg Q6H PRN HHN Shortness of Breath 10/31/18 02:45 11/05/18 02:44 Dextrose (Dextrose 50%) 25 ml Q30M PRN IV Hypoglycemia 10/30/18 18:15 11/29/18 18:13 Dextrose (Dextrose 50%) 50 ml Q30M PRN IV hypoglycemia 10/30/18 18:15 11/29/18 18:14 Gabapentin (Neurontin) 300 mg BID ORAL 10/30/18 20:00 11/29/18 19:59 11/02/18 08:18 Haloperidol Lactate (Haldol) 5 mg Q6H PRN IM Agitation 10/30/18 23:30 11/29/18 23:29 10/31/18 09:27 Lorazepam (Ativan) 2 mg Q6H PRN ORAL For Anxiety 10/30/18 23:30 11/06/18 23:29 11/02/18 08:18 Morphine Sulfate (Morphine Sulfate) 1 mg Q4H PRN IVP PAIN 4-10 10/30/18 16:15 11/06/18 16:14 11/02/18 05:09 Ondansetron HCl (Zofran) 4 mg Q6H PRN IVP Nausea & Vomiting 10/30/18 16:15 11/29/18 16:14 Oxcarbazepine (Trileptal) 300 mg DAILY ORAL 10/31/18 09:00 11/30/18 08:59 11/02/18 08:17 Polyethylene Glycol (Miralax) 17 gm HSPRN PRN ORAL Constipation 10/30/18 21:00 11/29/18 20:59 Promethazine HCl/ Codeine (Phenergan with Codeine) 5 ml Q4H PRN ORAL For Cough 10/31/18 02:45 11/30/18 02:44 Quetiapine Fumarate (SEROquel) 50 mg TID ORAL 10/31/18 18:00 11/30/18 17:59 11/02/18 08:18 Valproic Acid (Depakene) 1,000 mg QHS ORAL 10/31/18 21:00 11/30/18 20:59 11/01/18 20:24 Joana Morton MD Nov 02, 2018 12:49
--- NOTE | 2018-11-02 14:10 | NUR ---
nurse notes patient very agitated , removed his HL , Ativan given , refused to reinsert HL, will continue to monitor patient condition kerwin colon
--- NOTE | 2018-11-02 14:44 | General Progress Note ---
Assessment/Plan Problem List: (1) Anemia ICD Codes: D64.9 - Anemia, unspecified SNOMED: 227053146 (2) Psychosis ICD Codes: F29 - Unspecified psychosis not due to a substance or known physiological condition SNOMED: 10801836 Qualifiers: Qualified Codes: F29 - Unspecified psychosis not due to a substance or known physiological condition (3) Seizure disorder ICD Codes: G40.909 - Epilepsy, unspecified, not intractable, without status epilepticus SNOMED: 016239730 (4) Malnutrition ICD Codes: E46 - Unspecified protein-calorie malnutrition SNOMED: 63971478 (5) Agitation ICD Codes: R45.1 - Restlessness and agitation SNOMED: 024816419 (6) Altered mental status ICD Codes: R41.82 - Altered mental status, unspecified SNOMED: 940104887 Qualifiers: Qualified Codes: R41.82 - Altered mental status, unspecified (7) COPD (chronic obstructive pulmonary disease) ICD Codes: J44.9 - Chronic obstructive pulmonary disease, unspecified SNOMED: 26059688 Status: unchanged Assessment/Plan o2 pulm tx pt diet cbc bmp am dc plan snf Subjective Constitutional: Reports: weakness Allergies: Coded Allergies: No Known Allergies (Unverified , 02/13/18) All Systems: reviewed and negative except above Subjective sleepy calm Objective Last 24 Hour Vital Signs Date Time Temp Pulse Resp B/P (MAP) Pulse Ox O2 Delivery O2 Flow Rate FiO2 11/02/18 12:20 98.0 87 18 118/73 (88) 94 11/02/18 08:10 Room Air 11/02/18 08:00 98.4 100 17 117/83 (94) 94 11/02/18 04:00 98.7 100 20 119/83 (95) 95 11/02/18 00:00 98.1 90 20 118/75 (89) 92 11/01/18 21:00 Room Air 11/01/18 20:28 Room Air 11/01/18 20:00 98.2 71 18 111/76 (88) 94 11/01/18 16:00 97.7 97 20 128/69 (88) Intake and Output 11/01/18 11/02/18 18:59 06:59 Intake Total 960 ml Balance 960 ml Intake Oral 960 ml # Voids 4 3 # Bowel Movements 2 Laboratory Tests 11/02/18 05:47: White Blood Count 7.9, Red Blood Count 4.10L, Hemoglobin 12.2L, Hematocrit 37.1L , Mean Corpuscular Volume 90, Mean Corpuscular Hemoglobin 29.7, Mean Corpuscular Hemoglobin Concent 32.9, Red Cell Distribution Width 13.5, Platelet Count 179, Mean Platelet Volume 5.0L, Neutrophils (%) (Auto) 75.3H, Lymphocytes (%) (Auto) 16.6L, Monocytes (%) (Auto) 6.0, Eosinophils (%) (Auto) 1.2, Basophils (%) (Auto) 0.9, Sodium Level 139, Potassium Level 3.8, Chloride Level 102, Carbon Dioxide Level 26, Anion Gap 11, Blood Urea Nitrogen 20H, Creatinine 0.7, Estimat Glomerular Filtration Rate > 60, Glucose Level 131H, Calcium Level 8.6 Height (Feet): 5 Height (Inches): 9.00 Weight (Pounds): 135 General Appearance: lethargic EENT: normal ENT inspection Neck: normal alignment Cardiovascular: normal peripheral pulses, normal rate, regular rhythm Respiratory/Chest: chest wall non-tender, lungs clear, normal breath sounds Abdomen: normal bowel sounds, non tender, soft Extremities: normal inspection Edema: no edema noted Arm (L), no edema noted Arm (R), no edema noted Leg (L), no edema noted Leg (R), no edema noted Pedal (L), no edema noted Pedal (R), no edema noted Generalized Neurologic: motor weakness Skin: normal pigmentation, warm/dry Jose Treadwell DO Nov 02, 2018 14:44
--- NOTE | 2018-11-02 16:00 | NUR ---
NURSE NOTES Seen by Dr juarez, per psych point of view ok to discharge patient kerwin colon
[2018-11-02 16:06] VITALS: BP 119/84
--- NOTE | 2018-11-02 19:08 | NUR ---
HAND-OFF: Report given to Tommy CULP accordingly kerwin colon
--- NOTE | 2018-11-02 19:20 | NUR ---
NURSE NOTES: Received patient on bed awake, no s/s of any distress, Bed in low position and locked, call light within reach, will continue to monitor.
--- NOTE | 2018-11-02 19:20 | NUR ---
NURSE NOTES Inserted HL left FA g 22,tolerated procedure well endorse to ROBBI Sanders
[2018-11-02 20:00] VITALS: BP 113/75
[2018-11-03 04:00] VITALS: BP 116/87
[2018-11-03] MEDS: LORazepam 1mg tab ORAL PRN (06:54)
--- NOTE | 2018-11-03 07:28 | NUR ---
HAND-OFF: Report given to Davy CULP.
[2018-11-03 07:32] LABS: ANION GAP 7 mmol/L (5-15); BLOOD UREA NITROGEN 20 mg/dL (7-18); CALCIUM 8.7 MG/DL (8.5-10.1); CARBON DIOXIDE 28 MMOL/L (21-32); CHLORIDE 104 MMOL/L (98-107); CREATININE 0.9 MG/DL (0.55-1.30); POTASSIUM 3.7 MMOL/L (3.5-5.1); SODIUM 139 MMOL/L (136-145)
[2018-11-03 07:34] VITALS: BP 119/74
[2018-11-03 07:36] LABS: BASOPHILS % (AUTO) 0.9 % (0.0-2.0); EOSINOPHILS % (AUTO) 1.2 % (0.0-3.0); HEMATOCRIT 39.2 % (42.0-52.0); HEMOGLOBIN 12.8 G/DL (14.2-18.0); LYMPHOCYTES % (AUTO) 17.5 % (20.0-45.0); MEAN CORPUSCULAR VOLUME 90 FL (80-99); MONOCYTES % (AUTO) 7.7 % (1.0-10.0); NEUTROPHILS % (AUTO) 72.7 % (45.0-75.0); PLATELET COUNT 204 K/UL (150-450); RED BLOOD COUNT 4.33 M/UL (4.70-6.10); RED CELL DISTRIBUTION WIDTH 13.7 % (11.6-14.8); WHITE BLOOD COUNT 8.6 K/UL (4.8-10.8)
--- NOTE | 2018-11-03 07:53 | NUR ---
NURSE NOTES: pt awake alert, no distress. no sob. call light within reach. bed in lowest position, locked. will monitor.
[2018-11-03] MEDS: OXcarbazepine 150mg tab ORAL SCH (08:05)
--- NOTE | 2018-11-03 09:57 | NUR ---
Social Service Note Patient is a shelter resident of [facility] [phone]. Marguerite Rivero (cousin) [phone] requesting for patient to return to previous facility. Referral faxed to [phone]. Will follow up.
[2018-11-03] MEDS: Haloperidol 5mg/ml Inj IM PRN ×2 (10:49→23:47)
--- NOTE | 2018-11-03 10:52 | NUR ---
NURSE NOTES: pt has episodes of restlessness and striking at staff, haldol prn given just now, will monitor. bed in lowest position, locked.
[2018-11-03 12:00] VITALS: BP 118/74
--- NOTE | 2018-11-03 12:17 | NUR ---
NURSE NOTES: PT ASLEEP AROUSABLE NO DISTRESS. NO SOB. RECEIVED CALL FROM DR SHAFER PER SHE RECEIVED ORDER FROM DR PRICE TO TRANSFER PT TO [facility] TO DR PRICE TO CONFIRM
[2018-11-03] MEDS ORDERED: ZOFRAN 4 MG4 MG/2 ML IV (12:18)
[2018-11-03] MEDS ORDERED: SEROQUEL25 MG ORAL (12:19)
[2018-11-03] MEDS ORDERED: DEPAKENE250 MG/5 M PO (12:19)
[2018-11-03] MEDS ORDERED: PROMETHAZINE-C118 M1 ORAL (12:20)
[2018-11-03] MEDS ORDERED: HALDOL5 MG/1 ML IM (12:20)
[2018-11-03] MEDS ORDERED: MORPHINE 22 MG/1 ML IV (12:21)
--- NOTE | 2018-11-03 12:52 | NUR ---
Social Service Note [facility] will not return call x3 regarding acceptance. New order received to refer patient to [facility]. Referral faxed to [phone] (f) [phone] (p). Will follow up. Addendum: 11/03/18 at 1336 by VERONICA HURLEY Referral received. Requested for SW to follow up after 3pm. Addendum: 11/03/18 at 1503 by VERONICA HURLEY Follow up call placed to [facility] [phone], chart for review asked SW to call back within an hour.
--- NOTE | 2018-11-03 13:32 | General Progress Note ---
Assessment/Plan Problem List: (1) Anemia ICD Codes: D64.9 - Anemia, unspecified SNOMED: 595556107 (2) Psychosis ICD Codes: F29 - Unspecified psychosis not due to a substance or known physiological condition SNOMED: 63782414 Qualifiers: Qualified Codes: F29 - Unspecified psychosis not due to a substance or known physiological condition (3) Seizure disorder ICD Codes: G40.909 - Epilepsy, unspecified, not intractable, without status epilepticus SNOMED: 170679157 (4) Malnutrition ICD Codes: E46 - Unspecified protein-calorie malnutrition SNOMED: 59952351 (5) Agitation ICD Codes: R45.1 - Restlessness and agitation SNOMED: 387713886 (6) Altered mental status ICD Codes: R41.82 - Altered mental status, unspecified SNOMED: 298348039 Qualifiers: Qualified Codes: R41.82 - Altered mental status, unspecified (7) COPD (chronic obstructive pulmonary disease) ICD Codes: J44.9 - Chronic obstructive pulmonary disease, unspecified SNOMED: 52612099 Status: stable, progressing Assessment/Plan o2 pulm tx pt diet dc to psyc or snf Subjective Constitutional: Reports: weakness Allergies: Coded Allergies: No Known Allergies (Unverified , 02/13/18) All Systems: reviewed and negative except above Subjective sleepy calm Objective Last 24 Hour Vital Signs Date Time Temp Pulse Resp B/P (MAP) Pulse Ox O2 Delivery O2 Flow Rate FiO2 11/03/18 07:48 Room Air 11/03/18 07:34 97.9 80 18 119/74 (89) 96 11/03/18 04:00 97.9 96 18 116/87 (97) 96 11/02/18 21:00 Room Air 11/02/18 20:23 91 20 Room Air 21 11/02/18 20:00 97.8 94 18 113/75 (88) 95 11/02/18 16:06 97.3 91 18 119/84 (96) 94 Intake and Output 11/02/18 11/03/18 18:59 06:59 Intake Total 1000 ml 800 ml Balance 1000 ml 800 ml Intake Oral 1000 ml 800 ml # Voids 3 4 # Bowel Movements 1 Laboratory Tests 11/03/18 05:50: White Blood Count 8.6, Red Blood Count 4.33L, Hemoglobin 12.8L, Hematocrit 39.2L , Mean Corpuscular Volume 90, Mean Corpuscular Hemoglobin 29.5, Mean Corpuscular Hemoglobin Concent 32.7, Red Cell Distribution Width 13.7, Platelet Count 204, Mean Platelet Volume 5.9L, Neutrophils (%) (Auto) 72.7, Lymphocytes ( %) (Auto) 17.5L, Monocytes (%) (Auto) 7.7, Eosinophils (%) (Auto) 1.2, Basophils (%) (Auto) 0.9, Sodium Level 139, Potassium Level 3.7, Chloride Level 104, Carbon Dioxide Level 28, Anion Gap 7, Blood Urea Nitrogen 20H, Creatinine 0.9, Estimat Glomerular Filtration Rate > 60, Glucose Level 149H, Calcium Level 8.7 Height (Feet): 5 Height (Inches): 9.00 Weight (Pounds): 135 General Appearance: lethargic EENT: normal ENT inspection Neck: normal alignment Cardiovascular: normal peripheral pulses, normal rate, regular rhythm Respiratory/Chest: chest wall non-tender, lungs clear, normal breath sounds Abdomen: normal bowel sounds, non tender, soft Extremities: normal inspection Edema: no edema noted Arm (L), no edema noted Arm (R), no edema noted Leg (L), no edema noted Leg (R), no edema noted Pedal (L), no edema noted Pedal (R), no edema noted Generalized Neurologic: motor weakness Skin: normal pigmentation, warm/dry Jose Treadwell DO Nov 03, 2018 13:32
--- NOTE | 2018-11-03 14:16 | Pulmonology Progress Note ---
Assessment/Plan Problems: (1) Altered mental status (2) COPD (chronic obstructive pulmonary disease) (3) Agitation (4) At high risk for aspiration (5) Psychosis (6) Seizure disorder (7) Malnutrition Assessment/Plan calmer today symptomatic treatment titrate fio2 seizure precaution f/u consultants recommendation dvt prophylaxis dc planning Subjective ROS Limited/Unobtainable: No Constitutional: Reports: no symptoms HEENT: Repors: no symptoms Respiratory: Reports: no symptoms Allergies: Coded Allergies: No Known Allergies (Unverified , 02/13/18) Objective Last 24 Hour Vital Signs Date Time Temp Pulse Resp B/P (MAP) Pulse Ox O2 Delivery O2 Flow Rate FiO2 11/03/18 07:48 Room Air 11/03/18 07:34 97.9 80 18 119/74 (89) 96 11/03/18 04:00 97.9 96 18 116/87 (97) 96 11/02/18 21:00 Room Air 11/02/18 20:23 91 20 Room Air 21 11/02/18 20:00 97.8 94 18 113/75 (88) 95 11/02/18 16:06 97.3 91 18 119/84 (96) 94 Intake and Output 11/02/18 11/03/18 19:00 07:00 Intake Total 1000 ml 800 ml Balance 1000 ml 800 ml Intake Oral 1000 ml 800 ml # Voids 3 4 # Bowel Movements 1 Objective General Appearance: combative, cachetic Lines, tubes and drains: peripheral HEENT: normocephalic, atraumatic Neck: non-tender, normal alignment Respiratory/Chest: chest wall non-tender, lungs clear Cardiovascular/Chest: normal rate Abdomen: normal bowel sounds, soft Genitourinary/Rectal: normal genital exam Extremities: normal range of motion Laboratory Tests 11/03/18 05:50: White Blood Count 8.6, Red Blood Count 4.33L, Hemoglobin 12.8L, Hematocrit 39.2L , Mean Corpuscular Volume 90, Mean Corpuscular Hemoglobin 29.5, Mean Corpuscular Hemoglobin Concent 32.7, Red Cell Distribution Width 13.7, Platelet Count 204, Mean Platelet Volume 5.9L, Neutrophils (%) (Auto) 72.7, Lymphocytes ( %) (Auto) 17.5L, Monocytes (%) (Auto) 7.7, Eosinophils (%) (Auto) 1.2, Basophils (%) (Auto) 0.9, Sodium Level 139, Potassium Level 3.7, Chloride Level 104, Carbon Dioxide Level 28, Anion Gap 7, Blood Urea Nitrogen 20H, Creatinine 0.9, Estimat Glomerular Filtration Rate > 60, Glucose Level 149H, Calcium Level 8.7 Current Medications Medications (Trade) Dose Ordered Sig/Carmen Route PRN Reason Start Time Stop Time Status Last Admin Dose Admin Acetaminophen (Tylenol) 650 mg Q4H PRN ORAL T>100.5 10/30/18 16:15 11/29/18 16:14 Al Hydroxide/Mg Hydroxide (Mylanta II) 30 ml Q6H PRN ORAL dyspepsia 10/30/18 17:00 11/29/18 16:59 10/31/18 08:10 Albuterol Sulfate (Proventil) 2.5 mg Q6H PRN HHN Shortness of Breath 10/31/18 02:45 11/05/18 02:44 Dextrose (Dextrose 50%) 25 ml Q30M PRN IV Hypoglycemia 10/30/18 18:15 11/29/18 18:13 Dextrose (Dextrose 50%) 50 ml Q30M PRN IV hypoglycemia 10/30/18 18:15 11/29/18 18:14 Gabapentin (Neurontin) 300 mg BID ORAL 10/30/18 20:00 11/29/18 19:59 11/03/18 08:04 Haloperidol Lactate (Haldol) 5 mg Q6H PRN IM Agitation 10/30/18 23:30 11/29/18 23:29 11/03/18 10:49 Lorazepam (Ativan) 2 mg Q6H PRN ORAL For Anxiety 10/30/18 23:30 11/06/18 23:29 11/03/18 06:54 Morphine Sulfate (Morphine Sulfate) 1 mg Q4H PRN IVP PAIN 4-10 10/30/18 16:15 11/06/18 16:14 11/02/18 05:09 Ondansetron HCl (Zofran) 4 mg Q6H PRN IVP Nausea & Vomiting 10/30/18 16:15 11/29/18 16:14 Oxcarbazepine (Trileptal) 300 mg DAILY ORAL 10/31/18 09:00 11/30/18 08:59 11/03/18 08:05 Polyethylene Glycol (Miralax) 17 gm HSPRN PRN ORAL Constipation 10/30/18 21:00 11/29/18 20:59 Promethazine HCl/ Codeine (Phenergan with Codeine) 5 ml Q4H PRN ORAL For Cough 10/31/18 02:45 11/30/18 02:44 Quetiapine Fumarate (SEROquel) 50 mg TID ORAL 10/31/18 18:00 11/30/18 17:59 11/03/18 08:05 Valproic Acid (Depakene) 1,000 mg QHS ORAL 10/31/18 21:00 11/30/18 20:59 11/02/18 20:23 Joana Morton MD Nov 03, 2018 14:16
--- NOTE | 2018-11-03 16:01 | NUR ---
Social Service Note GRZEGORZ spoke with Graciela at [place] [phone], chart continues to be under review. If [facility] declines acceptance, GRZEGORZ spoke with Cargo Broker Quiana at [place] [phone] is willing to accept patient over the weekend. Per Quiana, [facility] staff can call [facility] for a bed, [facility] staff to inform [facility] to contact Quiana for room assignment via Quiana's personal phone. GRZEGORZ discussed with charge nurse.
--- NOTE | 2018-11-03 16:10 | NUR ---
CASE MANAGEMENT REVIEW SI: ALTERED MENTAL STATUS VS: BP 116/87, P 96, T 97.9, RR 18, SpO2 96 RBC 4.33, Hgb 12.8, Hct 39.2, BUN 20 IS: GABAPENTIN 300mg MORPHINE 1mg IVP VALPROIC ACID 250mg TRILEPTAL 300mg LORAZEPAM 2mg HALDOL 5mG IM MED/SURG STATUS
[2018-11-03] MEDS ORDERED: LORazepam Inj 2mg/ml 1ml IM SCH (16:15)
[2018-11-03] MEDS ORDERED: DiphenhydrAMINE 50mg/ml Inj IM SCH (16:15)
[2018-11-03] MEDS ORDERED: Haloperidol 5mg/ml Inj IM SCH (16:15)
--- NOTE | 2018-11-03 16:22 | General Progress Note ---
Assessment/Plan Problem List: (1) schizophrneia Assessment/Plan increase seroquel ativan prn haldol prn depakote dc topomax haldol jul Subjective Date patient seen: Nov 02, 2018 Neurologic/Psychiatric: Reports: anxiety, depressed, emotional problems Allergies: Coded Allergies: No Known Allergies (Unverified , 02/13/18) Subjective the pt was calmer less agitated [employer] was down last night/late entry Objective Last 24 Hour Vital Signs Date Time Temp Pulse Resp B/P (MAP) Pulse Ox O2 Delivery O2 Flow Rate FiO2 11/03/18 12:00 97.9 78 18 118/74 (89) 96 11/03/18 07:48 Room Air 11/03/18 07:34 97.9 80 18 119/74 (89) 96 11/03/18 04:00 97.9 96 18 116/87 (97) 96 11/02/18 21:00 Room Air 11/02/18 20:23 91 20 Room Air 21 11/02/18 20:00 97.8 94 18 113/75 (88) 95 Intake and Output 11/02/18 11/03/18 18:59 06:59 Intake Total 1000 ml 800 ml Balance 1000 ml 800 ml Intake Oral 1000 ml 800 ml # Voids 3 4 # Bowel Movements 1 Laboratory Tests 11/03/18 05:50: White Blood Count 8.6, Red Blood Count 4.33L, Hemoglobin 12.8L, Hematocrit 39.2L , Mean Corpuscular Volume 90, Mean Corpuscular Hemoglobin 29.5, Mean Corpuscular Hemoglobin Concent 32.7, Red Cell Distribution Width 13.7, Platelet Count 204, Mean Platelet Volume 5.9L, Neutrophils (%) (Auto) 72.7, Lymphocytes ( %) (Auto) 17.5L, Monocytes (%) (Auto) 7.7, Eosinophils (%) (Auto) 1.2, Basophils (%) (Auto) 0.9, Sodium Level 139, Potassium Level 3.7, Chloride Level 104, Carbon Dioxide Level 28, Anion Gap 7, Blood Urea Nitrogen 20H, Creatinine 0.9, Estimat Glomerular Filtration Rate > 60, Glucose Level 149H, Calcium Level 8.7 Height (Feet): 5 Height (Inches): 9.00 Weight (Pounds): 135 General Appearance: alert, confused, agitated Farhadi,Pantea MD Nov 03, 2018 16:22
--- NOTE | 2018-11-03 16:24 | General Progress Note ---
Assessment/Plan Problem List: (1) schizophrneia Assessment/Plan increase seroquel ativan prn haldol prn depakote transfer to psych pt team jul Subjective Neurologic/Psychiatric: Reports: anxiety, depressed, emotional problems Allergies: Coded Allergies: No Known Allergies (Unverified , 02/13/18) Subjective the pt received a shot and got a shot Objective Last 24 Hour Vital Signs Date Time Temp Pulse Resp B/P (MAP) Pulse Ox O2 Delivery O2 Flow Rate FiO2 11/03/18 12:00 97.9 78 18 118/74 (89) 96 11/03/18 07:48 Room Air 11/03/18 07:34 97.9 80 18 119/74 (89) 96 11/03/18 04:00 97.9 96 18 116/87 (97) 96 11/02/18 21:00 Room Air 11/02/18 20:23 91 20 Room Air 21 11/02/18 20:00 97.8 94 18 113/75 (88) 95 Intake and Output 11/02/18 11/03/18 18:59 06:59 Intake Total 1000 ml 800 ml Balance 1000 ml 800 ml Intake Oral 1000 ml 800 ml # Voids 3 4 # Bowel Movements 1 Laboratory Tests 11/03/18 05:50: White Blood Count 8.6, Red Blood Count 4.33L, Hemoglobin 12.8L, Hematocrit 39.2L , Mean Corpuscular Volume 90, Mean Corpuscular Hemoglobin 29.5, Mean Corpuscular Hemoglobin Concent 32.7, Red Cell Distribution Width 13.7, Platelet Count 204, Mean Platelet Volume 5.9L, Neutrophils (%) (Auto) 72.7, Lymphocytes ( %) (Auto) 17.5L, Monocytes (%) (Auto) 7.7, Eosinophils (%) (Auto) 1.2, Basophils (%) (Auto) 0.9, Sodium Level 139, Potassium Level 3.7, Chloride Level 104, Carbon Dioxide Level 28, Anion Gap 7, Blood Urea Nitrogen 20H, Creatinine 0.9, Estimat Glomerular Filtration Rate > 60, Glucose Level 149H, Calcium Level 8.7 Height (Feet): 5 Height (Inches): 9.00 Weight (Pounds): 135 General Appearance: alert, confused, agitated, thin Meeta Quintana MD Nov 03, 2018 16:24
--- NOTE | 2018-11-03 17:15 | NUR ---
NURSE NOTES: relayed to DR Treadwell re streak of blood in stool, rec'd order for consult with Dr Anderson and ordered for obsx3, collected 1/[address] Anderson is aware of the consult
[2018-11-03 17:16] VITALS: BP 130/74
--- NOTE | 2018-11-03 19:26 | NUR ---
HAND-OFF: Report given to ARMINDA GONZALES.
--- NOTE | 2018-11-03 19:30 | NUR ---
NURSE NOTES: RECEIVED PATIENT LYING IN BED, AWAKE, ALERT/ORIENTED TO SELF/PLACE, VERY CONFUSED/AGITATED/RESTLESS, MUFFLED/RASPY VOICE, ATTEMPTING TO CLIMB OUT OF BED, BEHAVIOR REDIRECTED, PROVIDED PAPER AND PENCIL TO WRITE THOUGHTS/NEEDS; DENIES PAIN, NO SIGNS AND SYMPTOMS OF ACUTE CARDIO RESPIRATORY DISTRESS/SHORTNESS OF BREATH, NO PERIPHERAL EDEMA NOTED. INCONTINENT OF B/B, ARE PROVIDED. SIDE RAILS UP X3/BED IN LOWEST POSITION FOR SAFETY. CALL LIGHT WITHIN REACH. BED ALARM ACTIVATED. NAD. CONTINUE WITH CURRENT PLAN OF CARE. FREQUENT MONITORING FOR SAFETY/NEEDS.
--- NOTE | 2018-11-03 19:35 | NUR ---
NURSE NOTES: RECEIVED TELEPHONE CALL FROM [facility] NY[facility], NO BED AVAILABLE AT THIS TIME-
--- NOTE | 2018-11-03 21:10 | NUR ---
NURSE NOTES: APPEAR TO BE ASLEEP ON ROUNDS, NO DISTRESS NOTED. WILL CONTINUE TO MONITOR FOR SAFETY/NEEDS.
--- NOTE | 2018-11-03 23:34 | NUR ---
NURSE NOTES: MOVED PATIENT CLOSER TO NURSES STATION FOR SAFETY-
[2018-11-04] VITALS: BP 142/95
[2018-11-04 04:00] VITALS: BP 132/82
[2018-11-04] MEDS: LORazepam 1mg tab ORAL PRN ×2 (04:12→14:45)
--- NOTE | 2018-11-04 06:46 | NUR ---
NURSE NOTES: RESTED WELL, SAFETY MAINTAINED. CONTINUE WITH CURRENT PLAN OF CARE. NAD.
--- NOTE | 2018-11-04 07:30 | NUR ---
HAND-OFF: Report given to CHRISTIAN BARRERA.
[2018-11-04] MEDS: Haloperidol 5mg/ml Inj IM PRN ×2 (07:59→20:02)
[2018-11-04 08:00] VITALS: BP 122/76
[2018-11-04] MEDS: OXcarbazepine 150mg tab ORAL SCH (08:08)
[2018-11-04] MEDS ORDERED: LORazepam Inj 2mg/ml 1ml IM SCH (10:00)
[2018-11-04] MEDS ORDERED: DiphenhydrAMINE 50mg/ml Inj IM SCH (10:00)
--- NOTE | 2018-11-04 10:51 | NUR ---
CHARGE NURSE NOTES: PATIENT AGITATED, WITH EPISODES OF COMBATIVENESS. OBTAINED ORDER FOR ATIVAN 2MG IM X1 AND BENADRYL 50MG im X1 FROM DR. SHAFER. NOTED AND CARRIED OUT. WILL CONT TO MONITOR PATIENT.
[2018-11-04 12:00] VITALS: BP 106/62
--- NOTE | 2018-11-04 14:10 | NUR ---
NURSE NOTES: patient was agitated and disrobed while in bed. trying to get out of bed. episodes of combativeness. patient has garbled speech and he writes his intentions. he appeared restless and refused to follow commands from nurses. will cont to monitor.
--- NOTE | 2018-11-04 15:36 | NUR ---
NURSE NOTES: patient constantly getting up from a chair with unsteady gait. noncompliant. attempted to throw stuff @ the employees. patient able to write his needs but not able to verbalize. appeared abusive and threatening to staff. handed the note to the security. will cont to monitor.
[2018-11-04 16:00] VITALS: BP 115/83
--- NOTE | 2018-11-04 16:16 | NUR ---
CHARGE NURSE NOTES: OBTAINED ORDER FROM DR. SHAFER TO [place] PATIENT TO [facility]. LEFT MESSAGE WITH ADMITTING. AWAITING CALL BACK. PATIENT AGITATED AT THIS TIME. DR. SHAFER AWARE. WITH NO NEW ORDER. CONTINUE TO MONITOR PATIENT.
--- NOTE | 2018-11-04 16:39 | NUR ---
NURSE NOTES: patient constantly pacing with high risk for fall. Does not want to let go of his possessions. He has 4 bags with him and he straddle when he walks . patient refused to go to bed. he chose to be in the chair and continously garbles and making hand gestures towards nurses. will cont to monitor.
[2018-11-04] MEDS: LORazepam Inj 2mg/ml 1ml IV PRN ×2 (17:53→23:05)
--- NOTE | 2018-11-04 18:15 | General Progress Note ---
Assessment/Plan Problem List: (1) Seizure disorder ICD Codes: G40.909 - Epilepsy, unspecified, not intractable, without status epilepticus SNOMED: 001318673 (2) COPD (chronic obstructive pulmonary disease) ICD Codes: J44.9 - Chronic obstructive pulmonary disease, unspecified SNOMED: 08570075 (3) Altered mental status ICD Codes: R41.82 - Altered mental status, unspecified SNOMED: 439624599 Qualifiers: Qualified Codes: R41.82 - Altered mental status, unspecified (4) Anemia ICD Codes: D64.9 - Anemia, unspecified SNOMED: 196736773 (5) UTI (urinary tract infection) ICD Codes: N39.0 - Urinary tract infection, site not specified SNOMED: 85560614 (6) schizophrneia Status: progressing Assessment/Plan afebrile reviewed chart and labs covering for dr anil davis stable malnutrition Subjective ROS Limited/Unobtainable: Yes Allergies: Coded Allergies: No Known Allergies (Unverified , 02/13/18) Objective Last 24 Hour Vital Signs Date Time Temp Pulse Resp B/P (MAP) Pulse Ox O2 Delivery O2 Flow Rate FiO2 11/04/18 16:00 98.1 110 21 115/83 (94) 95 11/04/18 12:00 97.8 89 19 106/62 (77) 95 11/04/18 09:54 84 18 Room Air 21 11/04/18 09:00 Room Air 11/04/18 08:00 98.1 91 19 122/76 (91) 95 11/04/18 04:00 97.9 95 19 132/82 (99) 99 11/04/18 00:00 97.7 99 19 142/95 (111) 96 11/03/18 21:40 Room Air 11/03/18 20:31 80 20 Room Air 21 Intake and Output 11/03/18 11/04/18 19:00 07:00 Intake Total 800 ml 600 ml Balance 800 ml 600 ml Intake Oral 800 ml 600 ml # Voids 1 2 # Bowel Movements 1 Height (Feet): 5 Height (Inches): 9.00 Weight (Pounds): 135 Cardiovascular: normal rate Respiratory/Chest: lungs clear Amirah Zimmerman MD Nov 04, 2018 18:15
--- NOTE | 2018-11-04 19:14 | NUR ---
HAND-OFF: Report given to Tono.
--- NOTE | 2018-11-04 19:22 | Pulmonology Progress Note ---
Assessment/Plan Problems: (1) Altered mental status (2) COPD (chronic obstructive pulmonary disease) (3) Agitation (4) At high risk for aspiration (5) Psychosis (6) Seizure disorder (7) Malnutrition Assessment/Plan calmer today symptomatic treatment titrate fio2 seizure precaution f/u consultants recommendation dvt prophylaxis doing better dc planning Subjective ROS Limited/Unobtainable: No Interval Events: calmer Allergies: Coded Allergies: No Known Allergies (Unverified , 02/13/18) Objective Last 24 Hour Vital Signs Date Time Temp Pulse Resp B/P (MAP) Pulse Ox O2 Delivery O2 Flow Rate FiO2 11/04/18 16:00 98.1 110 21 115/83 (94) 95 11/04/18 12:00 97.8 89 19 106/62 (77) 95 11/04/18 09:54 84 18 Room Air 21 11/04/18 09:00 Room Air 11/04/18 08:00 98.1 91 19 122/76 (91) 95 11/04/18 04:00 97.9 95 19 132/82 (99) 99 11/04/18 00:00 97.7 99 19 142/95 (111) 96 11/03/18 21:40 Room Air 11/03/18 20:31 80 20 Room Air 21 Intake and Output 11/03/18 11/04/18 18:59 06:59 Intake Total 800 ml 600 ml Balance 800 ml 600 ml Intake Oral 800 ml 600 ml # Voids 1 2 # Bowel Movements 1 Objective General Appearance: combative, cachetic Lines, tubes and drains: peripheral HEENT: normocephalic, atraumatic Neck: non-tender, normal alignment Respiratory/Chest: chest wall non-tender, lungs clear Cardiovascular/Chest: normal rate Abdomen: normal bowel sounds, soft Genitourinary/Rectal: normal genital exam Extremities: normal range of motion Current Medications Medications (Trade) Dose Ordered Sig/Carmen Route PRN Reason Start Time Stop Time Status Last Admin Dose Admin Acetaminophen (Tylenol) 650 mg Q4H PRN ORAL T>100.5 10/30/18 16:15 11/29/18 16:14 Al Hydroxide/Mg Hydroxide (Mylanta II) 30 ml Q6H PRN ORAL dyspepsia 10/30/18 17:00 11/29/18 16:59 10/31/18 08:10 Albuterol Sulfate (Proventil) 2.5 mg Q6H PRN HHN Shortness of Breath 10/31/18 02:45 11/05/18 02:44 Dextrose (Dextrose 50%) 25 ml Q30M PRN IV Hypoglycemia 10/30/18 18:15 11/29/18 18:13 Dextrose (Dextrose 50%) 50 ml Q30M PRN IV hypoglycemia 10/30/18 18:15 11/29/18 18:14 Gabapentin (Neurontin) 300 mg BID ORAL 10/30/18 20:00 11/29/18 19:59 11/04/18 17:02 Haloperidol Lactate (Haldol) 5 mg Q6H PRN IM Agitation 10/30/18 23:30 11/29/18 23:29 11/04/18 07:59 Lorazepam (Ativan 2mg/ml 1ml) 2 mg Q4H PRN IV For Anxiety 11/04/18 15:45 11/11/18 15:44 11/04/18 17:53 Morphine Sulfate (Morphine Sulfate) 1 mg Q4H PRN IVP PAIN 4-10 10/30/18 16:15 11/06/18 16:14 11/02/18 05:09 Ondansetron HCl (Zofran) 4 mg Q6H PRN IVP Nausea & Vomiting 10/30/18 16:15 11/29/18 16:14 Oxcarbazepine (Trileptal) 300 mg DAILY ORAL 10/31/18 09:00 11/30/18 08:59 11/04/18 08:08 Polyethylene Glycol (Miralax) 17 gm HSPRN PRN ORAL Constipation 10/30/18 21:00 11/29/18 20:59 Promethazine HCl/ Codeine (Phenergan with Codeine) 5 ml Q4H PRN ORAL For Cough 10/31/18 02:45 11/30/18 02:44 Quetiapine Fumarate (SEROquel) 50 mg TID ORAL 10/31/18 18:00 11/30/18 17:59 11/04/18 17:02 Valproic Acid (Depakene) 1,000 mg QHS ORAL 10/31/18 21:00 11/30/18 20:59 11/03/18 23:14 Joana Morton MD Nov 04, 2018 19:22
--- NOTE | 2018-11-04 19:28 | NUR ---
NURSE NOTES: Pt is in room, sitting in a bedside chair. Pt is rambling, talkative, throwing obscene gestures at staff. Pt is asked to remain in chair and to let nursing staff know if he wants to walk. Pt is reoriented. Fall precaution in place. Pt will be monitored.
[2018-11-04 20:00] VITALS: BP 123/83
--- NOTE | 2018-11-04 20:30 | NUR ---
NURSE NOTES: Pt is out of control, not following instructions from nursing staff. Pt is throwing objects and hitting staff. Bilat soft wrist restraints applied, order received from Dr. Quintana. Pt will be monitored.
[2018-11-04] MEDS: Morphine Sulfate 2mg/ml Inj(IV/IM USE ONLY) IVP PRN (21:16)
[2018-11-05] VITALS: BP 118/82
--- NOTE | 2018-11-05 00:32 | General Progress Note ---
Assessment/Plan Problem List: (1) schizophrneia Assessment/Plan increase seroquel ativan prn haldol prn depakote transfer to psych pt team nina jul Subjective Date patient seen: Nov 04, 2018 Allergies: Coded Allergies: No Known Allergies (Unverified , 02/13/18) Subjective the pt received a shot and got a shot Objective Last 24 Hour Vital Signs Date Time Temp Pulse Resp B/P (MAP) Pulse Ox O2 Delivery O2 Flow Rate FiO2 11/04/18 21:00 Room Air 11/04/18 20:47 112 22 Nasal Cannula 2.0 28 11/04/18 20:00 98.5 108 20 123/83 (96) 92 11/04/18 16:00 98.1 110 21 115/83 (94) 95 11/04/18 12:00 97.8 89 19 106/62 (77) 95 11/04/18 09:54 84 18 Room Air 21 11/04/18 09:00 Room Air 11/04/18 08:00 98.1 91 19 122/76 (91) 95 11/04/18 04:00 97.9 95 19 132/82 (99) 99 Intake and Output 11/04/18 11/05/18 19:00 07:00 Intake Total 240 ml Balance 240 ml Intake Oral 240 ml # Voids 3 Height (Feet): 5 Height (Inches): 9.00 Weight (Pounds): 135 Meeta Quintana MD Nov 05, 2018 00:31
[2018-11-05] MEDS: Haloperidol 5mg/ml Inj IM PRN ×3 (02:07→15:40)
[2018-11-05] MEDS: LORazepam Inj 2mg/ml 1ml IV PRN ×3 (03:07→15:40)
[2018-11-05 04:00] VITALS: BP 114/78
--- NOTE | 2018-11-05 04:45 | Consultation ---
DATE OF CONSULTATION: 11/04/2018 GASTROENTEROLOGY CONSULTATION CONSULTING PHYSICIAN: Donna Haines M.D. CHIEF COMPLAINT: I was asked to see this patient by Dr. Jose Treadwell for evaluation of hematochezia. HISTORY OF PRESENT ILLNESS: The patient is a debilitated 63-year-old man from a [place] [facility] with a significant history of psychosis and schizophrenia, who is brought to the hospital. He is quite agitated and uncooperative with the examination and with history. He walks around with fall risk and he grabs his bags. He allowed me to just look at his rectal area externally, there did not appear to be any external lesions or masses or bleeding. There is no other gastrointestinal history that could be obtained from this patient. The patient was incidentally admitted to [facility] previously in April of last year. At that time, request for a gastrostomy tube was being contemplated but this was not placed. PAST MEDICAL HISTORY: History of severe malnutrition, urinary tract infection, anemia, psychosis, schizophrenia, fall risk, and aspiration risk. FAMILY HISTORY: Unavailable. SOCIAL HISTORY: The patient is from a [facility] [place]. REVIEW OF SYSTEMS: Unobtainable. PHYSICAL EXAMINATION: GENERAL: The patient is an agitated, confused white man, who is very noncooperative for evaluation. HEENT: Normocephalic and atraumatic. Dentition is poor. NECK: Supple. CHEST: Clear to auscultation. CARDIOVASCULAR: Revealed regular rate. ABDOMEN: Soft. EXTREMITIES: Revealed no edema. RECTAL: Externally showed no lesions or bleeding. LABORATORY DATA: Noted. The patient has a very mild degree of anemia. ASSESSMENT: This patient is confused and agitated. It will be very difficult to perform any gastrointestinal workup on him. I doubt if he would accept any colonic preparation for colonoscopy. His next of kin to be contacted and this matter to be discussed. Once again, the options are very limited with respect to the actual workup due to agitation. Should the patient's anemia worsen, then gastrointestinal workup will be requested and he may have to go on extended preparation or perhaps have a nasogastric tube placed with restraints due to his psychosis with schizophrenia. RECOMMENDATIONS: 1. We will follow this patient with you. 2. Monitor CBC. 3. Check iron studies. Thank you for asking me to participate in the care of this patient. Donna Haines M.D. DR: JERO JOB#: [id number] CC: LYNETTE
--- NOTE | 2018-11-05 06:00 | NUR ---
NURSE NOTES: Pt is in bed, awake. Restless, trying to get out of bed. Bilat wrist restraints in place. Restraints sites are asymptomatic.Pt is reoriented. Nutrition and hydration provided. Pt was cleaned and bed linen changed.
--- NOTE | 2018-11-05 06:26 | NUR ---
NURSE NOTES: Re Psych transfer, Graciela from [place] called, she may have a bed available on 11/06, note she will only be available until 4pm
--- NOTE | 2018-11-05 07:10 | NUR ---
HAND-OFF: Report given to Ernestina Mcnally RN .Informed that pt is fall risk.
[2018-11-05 07:31] LABS: BASOPHILS % (AUTO) 1.1 % (0.0-2.0); EOSINOPHILS % (AUTO) 3.3 % (0.0-3.0); HEMATOCRIT 36.4 % (42.0-52.0); HEMOGLOBIN 11.6 G/DL (14.2-18.0); LYMPHOCYTES % (AUTO) 23.5 % (20.0-45.0); MEAN CORPUSCULAR VOLUME 90 FL (80-99); MONOCYTES % (AUTO) 7.6 % (1.0-10.0); NEUTROPHILS % (AUTO) 64.5 % (45.0-75.0); PLATELET COUNT 206 K/UL (150-450); RED BLOOD COUNT 4.04 M/UL (4.70-6.10); RED CELL DISTRIBUTION WIDTH 13.6 % (11.6-14.8); WHITE BLOOD COUNT 8.1 K/UL (4.8-10.8)
[2018-11-05 08:00] VITALS: BP 121/72
--- NOTE | 2018-11-05 08:00 | NUR ---
NURSE NOTES: RECEIVED PATIENT IN BED, RESTING AND ALERT TO NAME. PATIENT DENIES PAIN. NO SIGNS OF RESPIRATORY DISTRESS. IV LEAKING, INSERTED NEW LINE. PATIENT TOLERATED WELL. PATIENT RESTLESS. BILATERAL RESTRAINTS ON. PATIENT KEEPS TAKING OFF. RESTRAINTS PUT ON AGAIN. WILL CONTINUE TO MONITOR.
[2018-11-05] MEDS: OXcarbazepine 150mg tab ORAL SCH (08:07)
--- NOTE | 2018-11-05 11:00 | NUR ---
NURSE NOTES: PATIENT STILL RESTLESS AND AGITATED, THROWING APPLE JUICE ON FLOOR DIRECTED AT STAFF AND HOARDING BELONGINGS. WILL CONTINUE TO MONITOR.
--- NOTE | 2018-11-05 14:31 | Pulmonology Progress Note ---
Assessment/Plan Problems: (1) Altered mental status (2) COPD (chronic obstructive pulmonary disease) (3) Agitation (4) At high risk for aspiration (5) Psychosis (6) Seizure disorder (7) Malnutrition Assessment/Plan no new complains calmer today symptomatic treatment titrate fio2 seizure precaution f/u consultants recommendation dvt prophylaxis doing better dc planning Subjective ROS Limited/Unobtainable: No Constitutional: Reports: no symptoms HEENT: Repors: no symptoms Allergies: Coded Allergies: No Known Allergies (Unverified , 02/13/18) Objective Last 24 Hour Vital Signs Date Time Temp Pulse Resp B/P (MAP) Pulse Ox O2 Delivery O2 Flow Rate FiO2 11/05/18 09:00 Room Air 11/05/18 08:00 97.4 103 18 121/72 (88) 95 11/05/18 04:00 98.4 92 20 114/78 (90) 92 11/05/18 00:00 98.2 99 20 118/82 (94) 93 11/04/18 21:00 Room Air 11/04/18 20:47 112 22 Nasal Cannula 2.0 28 11/04/18 20:00 98.5 108 20 123/83 (96) 92 11/04/18 16:00 98.1 110 21 115/83 (94) 95 Intake and Output 11/04/18 11/05/18 19:00 07:00 Intake Total 240 ml 600 ml Balance 240 ml 600 ml Intake Oral 240 ml 600 ml # Voids 3 1 Objective General Appearance: combative, cachetic Lines, tubes and drains: peripheral HEENT: normocephalic, atraumatic Neck: non-tender, normal alignment Respiratory/Chest: chest wall non-tender, lungs clear Cardiovascular/Chest: normal rate Abdomen: normal bowel sounds, soft Genitourinary/Rectal: normal genital exam Extremities: normal range of motion Laboratory Tests 11/05/18 06:25: White Blood Count 8.1, Red Blood Count 4.04L, Hemoglobin 11.6L, Hematocrit 36.4L , Mean Corpuscular Volume 90, Mean Corpuscular Hemoglobin 28.8, Mean Corpuscular Hemoglobin Concent 31.9L, Red Cell Distribution Width 13.6, Platelet Count 206, Mean Platelet Volume 6.6, Neutrophils (%) (Auto) 64.5, Lymphocytes (%) (Auto) 23.5, Monocytes (%) (Auto) 7.6, Eosinophils (%) (Auto) 3.3H, Basophils (%) (Auto) 1.1, Iron Level 30L Current Medications Medications (Trade) Dose Ordered Sig/Carmen Route PRN Reason Start Time Stop Time Status Last Admin Dose Admin Acetaminophen (Tylenol) 650 mg Q4H PRN ORAL T>100.5 10/30/18 16:15 11/29/18 16:14 Al Hydroxide/Mg Hydroxide (Mylanta II) 30 ml Q6H PRN ORAL dyspepsia 10/30/18 17:00 11/29/18 16:59 10/31/18 08:10 Dextrose (Dextrose 50%) 25 ml Q30M PRN IV Hypoglycemia 10/30/18 18:15 11/29/18 18:13 Dextrose (Dextrose 50%) 50 ml Q30M PRN IV hypoglycemia 10/30/18 18:15 11/29/18 18:14 Gabapentin (Neurontin) 300 mg BID ORAL 10/30/18 20:00 11/29/18 19:59 11/05/18 08:07 Haloperidol Lactate (Haldol) 5 mg Q6H PRN IM Agitation 10/30/18 23:30 11/29/18 23:29 11/05/18 08:42 Lorazepam (Ativan 2mg/ml 1ml) 2 mg Q4H PRN IV For Anxiety 11/04/18 15:45 11/11/18 15:44 11/05/18 07:48 Morphine Sulfate (Morphine Sulfate) 1 mg Q4H PRN IVP PAIN 4-10 10/30/18 16:15 11/06/18 16:14 11/04/18 21:16 Ondansetron HCl (Zofran) 4 mg Q6H PRN IVP Nausea & Vomiting 10/30/18 16:15 11/29/18 16:14 Oxcarbazepine (Trileptal) 300 mg DAILY ORAL 10/31/18 09:00 11/30/18 08:59 11/05/18 08:07 Polyethylene Glycol (Miralax) 17 gm HSPRN PRN ORAL Constipation 10/30/18 21:00 11/29/18 20:59 Promethazine HCl/ Codeine (Phenergan with Codeine) 5 ml Q4H PRN ORAL For Cough 10/31/18 02:45 11/30/18 02:44 Quetiapine Fumarate (SEROquel) 50 mg TID ORAL 10/31/18 18:00 11/30/18 17:59 11/05/18 08:07 Valproic Acid (Depakene) 1,000 mg QHS ORAL 10/31/18 21:00 11/30/18 20:59 11/04/18 19:59 Joana Morton MD Nov 05, 2018 14:31
--- NOTE | 2018-11-05 15:28 | General Progress Note ---
Assessment/Plan Problem List: (1) Seizure disorder ICD Codes: G40.909 - Epilepsy, unspecified, not intractable, without status epilepticus SNOMED: 047646287 (2) COPD (chronic obstructive pulmonary disease) ICD Codes: J44.9 - Chronic obstructive pulmonary disease, unspecified SNOMED: 39383771 (3) Altered mental status ICD Codes: R41.82 - Altered mental status, unspecified SNOMED: 444965769 Qualifiers: Qualified Codes: R41.82 - Altered mental status, unspecified (4) Anemia ICD Codes: D64.9 - Anemia, unspecified SNOMED: 084806676 (5) UTI (urinary tract infection) ICD Codes: N39.0 - Urinary tract infection, site not specified SNOMED: 36403837 (6) schizophrneia Status: progressing Assessment/Plan afebrile reviewed chart and labs covering for dr anil land vitals stable no seizure h/h stable no acute events Subjective ROS Limited/Unobtainable: Yes Allergies: Coded Allergies: No Known Allergies (Unverified , 02/13/18) Objective Last 24 Hour Vital Signs Date Time Temp Pulse Resp B/P (MAP) Pulse Ox O2 Delivery O2 Flow Rate FiO2 11/05/18 09:00 Room Air 11/05/18 08:00 97.4 103 18 121/72 (88) 95 11/05/18 04:00 98.4 92 20 114/78 (90) 92 11/05/18 00:00 98.2 99 20 118/82 (94) 93 11/04/18 21:00 Room Air 11/04/18 20:47 112 22 Nasal Cannula 2.0 28 11/04/18 20:00 98.5 108 20 123/83 (96) 92 11/04/18 16:00 98.1 110 21 115/83 (94) 95 Intake and Output 11/04/18 11/05/18 19:00 07:00 Intake Total 240 ml 600 ml Balance 240 ml 600 ml Intake Oral 240 ml 600 ml # Voids 3 1 Laboratory Tests 11/05/18 06:25: White Blood Count 8.1, Red Blood Count 4.04L, Hemoglobin 11.6L, Hematocrit 36.4L , Mean Corpuscular Volume 90, Mean Corpuscular Hemoglobin 28.8, Mean Corpuscular Hemoglobin Concent 31.9L, Red Cell Distribution Width 13.6, Platelet Count 206, Mean Platelet Volume 6.6, Neutrophils (%) (Auto) 64.5, Lymphocytes (%) (Auto) 23.5, Monocytes (%) (Auto) 7.6, Eosinophils (%) (Auto) 3.3H, Basophils (%) (Auto) 1.1, Iron Level 30L Height (Feet): 5 Height (Inches): 9.00 Weight (Pounds): 135 Neck: supple Cardiovascular: normal rate Respiratory/Chest: lungs clear Abdomen: soft Amirah Zimmerman MD Nov 05, 2018 15:28
[2018-11-05 16:00] VITALS: BP 130/80
--- NOTE | 2018-11-05 17:30 | NUR ---
CASE MANAGEMENT: REVIEW 11/05/2018 SI:RESTLESSNESS AND AGITATION. T 97.4 HR 103 RR 18 B/P 121/72 SATS 95% ON RA BUN 20 GLU 149 IS:GABAPENTIN PO BID TRILEPTAL PO QD DEPAKENE PO QHS SEROQUEL PO TID MED/SURG STATUS
--- NOTE | 2018-11-05 18:54 | NUR ---
NURSE NOTES: [facility] SET UP FOR 1999 PICKUP. REPORT GIVEN TO CHRISTIAN FULLER FROM [facility] . PATIENT GOING TO [facility] FOR INTAKE/ EVAL [address] [place] [address]. ACCEPTING CLINICIAN FOR INTAKE IS DR. SHELBI WHITNEY. PATIENT IS IN SYSTEM AT THEIR FACILITY. NOTIFIED COUSIN MIESHA. WILL CONTINUE TO MONITOR.
--- NOTE | 2018-11-05 19:29 | NUR ---
HAND-OFF: Report given to ROBBI GARCIA.
--- NOTE | 2018-11-05 19:46 | NUR ---
NURSE NOTES: Received report from ROBBI Do. Patient awaiting discharge to urgent care facility. In bed, on room air. no signs of distress or labored breathing. IV intact, patent, and saline locked. Bed in lowest position, will continue to monitor.
--- NOTE | 2018-11-05 19:58 | General Progress Note ---
Assessment/Plan Assessment/Plan Assessment - limited rectal bleed, ? 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 no further rectal bleeding noted Objective Last 24 Hour Vital Signs Date Time Temp Pulse Resp B/P (MAP) Pulse Ox O2 Delivery O2 Flow Rate FiO2 11/05/18 16:00 97.6 104 130/80 (97) 11/05/18 09:00 Room Air 11/05/18 08:00 97.4 103 18 121/72 (88) 95 11/05/18 04:00 98.4 92 20 114/78 (90) 92 11/05/18 00:00 98.2 99 20 118/82 (94) 93 11/04/18 21:00 Room Air 11/04/18 20:47 112 22 Nasal Cannula 2.0 28 11/04/18 20:00 98.5 108 20 123/83 (96) 92 Intake and Output 11/04/18 11/05/18 19:00 07:00 Intake Total 240 ml 600 ml Balance 240 ml 600 ml Intake Oral 240 ml 600 ml # Voids 3 1 Laboratory Tests 11/05/18 06:25: White Blood Count 8.1, Red Blood Count 4.04L, Hemoglobin 11.6L, Hematocrit 36.4L , Mean Corpuscular Volume 90, Mean Corpuscular Hemoglobin 28.8, Mean Corpuscular Hemoglobin Concent 31.9L, Red Cell Distribution Width 13.6, Platelet Count 206, Mean Platelet Volume 6.6, Neutrophils (%) (Auto) 64.5, Lymphocytes (%) (Auto) 23.5, Monocytes (%) (Auto) 7.6, Eosinophils (%) (Auto) 3.3H, Basophils (%) (Auto) 1.1, Iron Level 30L Height (Feet): 5 Height (Inches): 9.00 Weight (Pounds): 135 Objective Thin elderly man NCAT supple CTA RRR abd soft ND no edema agitated Donna Haines MD Nov 05, 2018 19:58
[2018-11-05 20:00] VITALS: BP 117/83
--- NOTE | 2018-11-05 20:15 | NUR ---
NURSE NOTES: Patient discharged to [facility] via [facility] unit 621. Report given to Naeem and Yefri family medicine physician assistant. IV D/C and ID band removed.
--- NOTE | 2018-11-06 16:04 | General Progress Note ---
Assessment/Plan Problem List: (1) schizophrneia Status: unchanged Assessment/Plan increase seroquel ativan prn haldol prn depakote transfer to psych pt team jul Subjective Date patient seen: Nov 05, 2018 Neurologic/Psychiatric: Reports: anxiety Allergies: Coded Allergies: No Known Allergies (Unverified , 02/13/18) Subjective the pt received a shot and got a shot Objective Last 24 Hour Vital Signs Date Time Temp Pulse Resp B/P (MAP) Pulse Ox O2 Delivery O2 Flow Rate FiO2 11/05/18 20:00 97.4 95 18 117/83 (94) 95 Intake and Output 11/05/18 11/06/18 19:00 07:00 # Voids 4 Height (Feet): 5 Height (Inches): 9.00 Weight (Pounds): 135 General Appearance: alert, confused, agitated Meeta Quintana MD Nov 06, 2018 16:04
--- NOTE | 2018-11-06 17:43 | Discharge Summary ---
Discharge Summary Discharge Summary _ DATE OF ADMISSION: 10/30/2018 DATE OF DISCHARGE: 11/05/2018 DISCHARGED BY:Dr Treadwell REASON FOR ADMISSION 63 years old male with past medical history of COPD seizure disorder, psychiatric history, presented from the [facility] facility for agitation for 1 day. According to nursing report, patient was agitated and attempted to hit nursing staff. Upon evaluation patient did not answer any question. No signs of distress noted. Vital signs were stable. Laboratory workup revealed no leukocytosis, hemoglobin 11.4, hematocrit 34.7. Urinalysis revealed no evidence of UTI. Stable electrolytes and renal parameters. Urine toxicology screen was positive for opiates. Serum alcohol level less than 3. Patient was admitted for further management CONSULTANTS: pulmonary Dr. Morton GI specialist Dr. De La Fuente psychiatrist [facility] COURSE: Patient admitted to medical surgical floor. Symptomatic treatment provided. Psychiatric evaluation requested. Supplemental oxygen provided as needed to keep pulse oximetry above 92%. Pulse oximetry was stable on room air. Pulmonary toilet was on standby. No evidence of respiratory distress. Seizure precautions maintained, no evidence of seizure activity while in the hospital. DVT prophylaxis provided. Protein supplements implemented in plan of care. GI specialist closely followed. Patient with evidence of limited rectal bleeding , possible hemorrhoidal. Mild anemia noted. Stool for occult blood was positive. Patient was continued on diet as tolerated. Patient was able to tolerate diet. GI specialist recommended closely monitor for any signs of bleeding. May consider EGD/ colonoscopy , although patient unlikely will take the preparation at thsi time, given his present mental status. Hemoglobin and hematocrit were closely monitor , remained at the baseline. Prior to transfer hemoglobin 11.6 , hematocrit 36.4. No further evidence of rectal bleeding. Psychiatrist closely followed . Psychiatric medication regimen was optimized by psychiatrist. PET team evaluation was done . Patient subsequently was transferred to inpatient psychiatric hospital for further management. FINAL DIAGNOSES: Metabolic encephalopathy Schizophrenia COPD Seizure disorder Limited rectal bleeding , possible hemorrhoidal bleeding Mild anemia Stool OB positive Malnutrition High risk for aspiration Psychosis DISCHARGE MEDICATIONS: See Medication Reconciliation list. DISCHARGE INSTRUCTIONS: Patient was discharged to [facility] for further management I have been assigned to dictate discharge summary for this account. I was not involved in the patient's management. Shaye Devi NP Nov 06, 2018 17:43
== END 2018-11-05 20:30 | DRG 71 ==
LOC: EDUNIT# 12:46 → EDBD 12:46 → EMR 13:24 → 4E 14:45 → EDBEDREQ 17:25 → 4E 21:07
DX: G93.41 Metabolic encephalopathy (principal); E46 Unspecified protein-calorie malnutrition; R45.1 Restlessness and agitation; F20.9 Schizophrenia, unspecified; J44.9 Chronic obstructive pulmonary disease, unspecified; D64.9 Anemia, unspecified; G40.909 Epilepsy, unspecified, not intractable, without status epilepticus; K64.9 Unspecified hemorrhoids; F29 Unspecified psychosis not due to a substance or known physiological condition; Z68.20 Body mass index [BMI] 20.0-20.9, adult
CPT/HCPCS: 36415; 80048; 80053; 80061; 80307; 80329; 81003; 82270; 83540; 84443; 85025; 87081; 94664; 99285